=== PATIENT | female | born 1930 | race Caucasian/White ===

== ENCOUNTER 2016-09-13 15:19 | Emergency (ER) | payer OTHER ==
[~2016-09-13] VITALS: Ht 172.7 cm; Wt 89.5 kg
[~2016-09-13 15:19] MED LIST: AMLO-110 PO; ASPCH81 PO; CLTP PO; METO50TA16 PO; WARF5TAB7 PO; WARF5TAB90 PO
[2016-09-13 15:22] VITALS: TEMP 36.3; Ht 172.7 cm; Wt 89.5 kg
[2016-09-13] MEDS ORDERED: ASPI81TA28 PO (15:42)
[2016-09-13] MEDS ORDERED: CALC-354 PO (15:42)
--- NOTE | 2016-09-13 18:11 | DIAGNOSTIC IMAGING REPORT ---
LEFT ELBOW 2 VIEWS CLINICAL HISTORY: Fall with left elbow injury. FINDINGS: AP and crosstable lateral portable views of the left elbow are obtained. No prior studies are available for comparison at the time of dictation. The skeletal structures are osteopenic. There is a supracondylar humeral fracture. There is ulnar distraction of the distal fragment by at least 8 mm, and posterior distraction of the distal fragment by at least 4 mm. No intra-articular extension is seen. The proximal radius and ulna appear intact. An elbow joint effusion is noted. A large enthesophyte is seen in the triceps insertion. Degenerative spurring is present along the medial joint space, and there are medial epicondylar enthesophytes. Overlying soft tissue edema is observed. IMPRESSION: 1. There is a mildly distracted supracondylar humeral fracture as detailed above. 2. The proximal radius and ulna appear intact. 3. Joint effusion and soft tissue swelling. Electronically signed by: Augustine Curiel M.D. 09/13/2016 6:10 PM Dictated Date/Time: 09/13/2016 6:07 PM
--- NOTE | 2016-09-13 18:11 | DIAGNOSTIC IMAGING REPORT ---
CT SCAN OF THE CERVICAL SPINE CLINICAL HISTORY: Trauma. Fall. COMPARISON STUDY: MRI of the cervical spine dated 06/18/2014. TECHNIQUE: CT scan of the cervical spine is performed from the skull base to the upper thoracic spine. Images are reviewed in the axial, sagittal, and coronal planes. IV contrast was not administered for this examination. CT DOSE: Reported separately and the concurrently performed CT scan of the brain. FINDINGS: Skeletal structures: The skeletal structures are osteopenic. There is no evidence of fracture or subluxation involving the cervical spine. Vertebral body height is maintained. There is minimal anterolisthesis at C3-C4, C4-C5, C5-C6, C6-C7, and C7-T1. Anterior osteophytes are noted throughout. There is straightening of the cervical lordosis with mild reversal centered at C4-C5. The odontoid process and lateral masses are intact. The atlantoaxial articulation is preserved noting productive degenerative change. There is mild widening of the interval. The spinous processes appear intact. There is moderate to advanced multilevel cervical spondylosis. Uncovertebral and facet arthropathy contribute to neural foraminal stenosis at most levels. Intervertebral discs: There is moderate degenerative disc space narrowing at C6-C7 and C7-T1. Mild disc space narrowing is seen at the remaining cervical levels. Central canal: Pannus formation is again suggested around the atlantodental joint. This likely narrows the central canal just below the foramen magnum, and was better characterized by MRI in 2013. Posterior disc osteophyte complexes at C3-C4, C4-C5, C5-C6, and C6-C7 likely contribute to mild acquired compromise of the central canal. Soft tissues: The prevertebral and paraspinous soft tissues are within normal limits. Calvarium: The visualized calvarium at the skull base appears intact. Brain parenchyma: Partially visualized brain parenchyma the skull base is within normal limits. Sinuses and mastoids: Trace mucosal thickening is seen within the maxillary antra. The mastoid air cells are well pneumatized. Lung apices: There is biapical scarring. Partially imaged apical lung parenchyma is otherwise grossly clear. IMPRESSION: 1. There is no evidence of fracture or subluxation involving the cervical spine. 2. Osteopenia and multilevel spondylotic change as above. Electronically signed by: Augustine Curiel M.D. 09/13/2016 5:34 PM Dictated Date/Time: 09/13/2016 5:28 PM
--- NOTE | 2016-09-13 18:11 | DIAGNOSTIC IMAGING REPORT ---
CT SCAN OF THE BRAIN WITHOUT IV CONTRAST CLINICAL HISTORY: Fall. Head injury. COMPARISON STUDY: CT of the brain dated 05/10/2014. TECHNIQUE: Unenhanced axial CT scan of the brain is performed from the vertex to the skull base. CT DOSE: 1081.31 mGy.cm FINDINGS: Brain parenchyma: There are age-related involutional changes noting mild subcortical and periventricular microangiopathic change. There is unchanged appearance of an approximately 5 x 3 cm CSF density lesion along the right convexity and in the left anterior temporal fossa as compared to 2014. This causes mass effect on the subjacent cortical sulci. There is minimal right to left midline shift, and the appearance is typical for an arachnoid cyst. There is no hemorrhage or evidence of acute territorial ischemia by CT criteria. Kaufman-white matter is preserved. No extra-axial fluid collection is seen. Ventricles, sulci, cisterns: Prominent secondary to involutional change. Intracranial vasculature: There is atherosclerotic calcification of the cavernous carotid and vertebral arteries. Calvarium: The skeletal structures are osteopenic. No depressed calvarial fracture is seen. Sinuses and mastoids: There is trace mucosal thickening in the right maxillary antrum. The remaining visualized paranasal sinuses are clear. The mastoid air cells are well pneumatized. Orbits: The bony orbits are grossly intact. There are bilateral ocular lens implants. IMPRESSION: 1. There is no hemorrhage or evidence of acute territorial ischemia by CT criteria. 2. Again seen is an arachnoid cyst along the left convexity. This causes mild localized mass effect, and this has not significantly changed from the 2014 examination. Electronically signed by: Augustine Curiel M.D. 09/13/2016 5:27 PM Dictated Date/Time: 09/13/2016 5:22 PM
[2016-09-13 18:16] LABS: BASO % 0.2 %; BASO ABS # 0.02 K/uL (0-0.2); COMPLETE YES; EOS % 0.7 %; HEMATOCRIT 41.2 % (37-47); IG% 0.4 %; LYMPH ABS # 0.86 K/uL (1.2-3.4); MEAN CELL VOLUME 90.9 fL (80-100); MEAN CORPUSCULAR HEMOGLOBIN 28.7 pg (25-34); MEAN CORPUSCULAR HGB CONC 31.6 g/dl (32-36); MEAN PLATELET VOLUME 11.7 fL (7.4-10.4); MONO % 6.4 %; NEUT % 84.3 %; PLATELET COUNT 125 K/uL (130-400); RED BLOOD COUNT 4.53 M/uL (4.2-5.4); WHITE BLOOD COUNT 10.72 K/uL (4.8-10.8)
[2016-09-13 18:22] LABS: INR 2.2 (0.9-1.1); PARTIAL THROMBOPLASTIN RATIO 1.3; PROTHROMBIN TIME (PATIENT) 23.9 SECONDS (9.0-12.0)
--- NOTE | 2016-09-13 18:39 | EMERGENCY ROOM VISIT NOTE ---
History Report prepared by Ashok: Alla Gutiérrez Under the Supervision of: Dr. Georgie Lewis D.O. 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 The patient was walking indoors with a plate of food in her hand when she fell. She does not believe that she tripped on anything, but is unsure why she fell. A family member mentions that she was wearing rubber shoes which might have caught on the carpet. The cut on her face is from her glasses. She denies any head, neck, abdominal, hip, knee, right elbow, or shoulder pain. She did not experience any loss of consciousness. She is able to ambulate. She is on Coumadin for A fib. 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 Review of Systems See HPI for pertinent positives & negatives. A total of 10 systems reviewed and were otherwise negative. Past Medical & Surgical Medical Problems: (1) Atrial fibrillation (2) Heart disease (3) Warfarin anticoagulation Family History Hypertension Social History Smoking Status: Never Smoker Alcohol Use: none Drug Use: none Marital Status: Housing Status: lives with significant other Occupation Status: employed Current/Historical Medications Scheduled Amlodipine (Norvasc), 5 MG PO DAILY Aspirin (Aspirin Ec), 81 MG PO DAILY Calcium Carbonate-Cholecalcife (Caltrate 600+D), 1 TAB PO BID Metoprolol Tartrate (Lopressor) (Lopressor), 50 MG PO BID Warfarin Sod (Jantoven), 5 MG PO WK Warfarin Sodium (Coumadin), 2.5 MG PO [id number] Allergies Coded Allergies: Propoxyphene (Verified Allergy, Unknown, 10/05/15) Indomethacin (Unverified Adverse Reaction, Unknown, GASTRIC UPSET, 10/05/15) Rofecoxib (Unverified Adverse Reaction, Unknown, DRY MOUTH, 10/05/15) Physical Exam Vital Signs Date Time Temp Pulse Resp B/P Pulse Ox O2 Delivery O2 Flow Rate FiO2 09/13/16 18:14 81 18 145/95 93 Room Air 09/13/16 16:59 76 09/13/16 15:22 36.3 91 18 163/100 94 Room Air Physical Exam HEENT: Head - normocephalic and atraumatic. Pupils are equal, round, and reactive to light. Extraocular eye muscles are intact and sclera are anicteric. Ears - bilaterally patent canals with no evidence of hemotympanum. Nose - moist nasal mucosa without evidence of trauma or discharge. Mouth - moist buccal mucosa with no trauma to the teeth or signs of malocclusion. Face - superficial abrasion of left lateral eyebrow. Neck: The neck is supple and there is no pain to palpation over the posterior cervical spine and no obvious step-offs or deformities. There is no JVD or tracheal deviation. Chest: There are no signs of deformities, contusions or abrasions to the chest wall. There is no obvious crepitus or paradoxical chest rise. Heart: Regular, rate, and rhythm. There is a normal S1 and S2 with no murmurs, clicks, or gallops appreciated. Lungs: Clear to auscultation bilaterally with no wheezes, rales, or rhonchi. Abdomen: Soft, completely nontender, nondistended, with good bowel sounds. There is no sign of trauma such as contusions, abrasions or penetrations. There are no palpable pulsatile masses or hepatosplenomegaly. There is no guarding, rigidity, or rebound noted. Pelvis: Stable to rock and compression. Extremities: There are easily palpable peripheral pulses. Deformity and large hematoma of left elbow. The patient has good sensation to the hand and movement of fingers. Neuro: The patient is awake and alert and easily able to follow commands. Muscle strength is 5 out of 5 in all 4 extremities. Otherwise, neuro exam is unremarkable. Back: The entire thoracic, lumbar, and sacral spine were palpated. There are no obvious step-offs or deformities noted. There are no obvious signs of trauma such as contusions abrasions penetrations noted to the back. Medical Decision & Procedures ER Provider Diagnostic Interpretation: X-ray results as stated below per interpretation by me and the radiologist. Radiology results as stated below per my review and the radiologist's interpretation. LEFT ELBOW 2 VIEWS CLINICAL HISTORY: Fall with left elbow injury. FINDINGS: AP and crosstable lateral portable views of the left elbow are obtained. No prior studies are available for comparison at the time of dictation. The skeletal structures are osteopenic. There is a supracondylar humeral fracture. There is ulnar distraction of the distal fragment by at least 8 mm, and posterior distraction of the distal fragment by at least 4 mm. No intra-articular extension is seen. The proximal radius and ulna appear intact. An elbow joint effusion is noted. A large enthesophyte is seen in the triceps insertion. Degenerative spurring is present along the medial joint space, and there are medial epicondylar enthesophytes. Overlying soft tissue edema is observed. IMPRESSION: 1. There is a mildly distracted supracondylar humeral fracture as detailed above. 2. The proximal radius and ulna appear intact. 3. Joint effusion and soft tissue swelling. Electronically signed by: Augustine Curiel M.D. 09/13/2016 6:10 PM Dictated Date/Time: 09/13/2016 6:[address] SCAN OF THE CERVICAL SPINE CLINICAL HISTORY: Trauma. Fall. COMPARISON STUDY: MRI of the cervical spine dated 06/18/2014. TECHNIQUE: CT scan of the cervical spine is performed from the skull base to the upper thoracic spine. Images are reviewed in the axial, sagittal, and coronal planes. IV contrast was not administered for this examination. CT DOSE: Reported separately and the concurrently performed CT scan of the brain. FINDINGS: Skeletal structures: The skeletal structures are osteopenic. There is no evidence of fracture or subluxation involving the cervical spine. Vertebral body height is maintained. There is minimal anterolisthesis at C3-C4, C4-C5, C5-C6, C6-C7, and C7-T1. Anterior osteophytes are noted throughout. There is straightening of the cervical lordosis with mild reversal centered at C4-C5. The odontoid process and lateral masses are intact. The atlantoaxial articulation is preserved noting productive degenerative change. There is mild widening of the interval. The spinous processes appear intact. There is moderate to advanced multilevel cervical spondylosis. Uncovertebral and facet arthropathy contribute to neural foraminal stenosis at most levels. Intervertebral discs: There is moderate degenerative disc space narrowing at C6-C7 and C7-T1. Mild disc space narrowing is seen at the remaining cervical levels. Central canal: Pannus formation is again suggested around the atlantodental joint. This likely narrows the central canal just below the foramen magnum, and was better characterized by MRI in 2014. Posterior disc osteophyte complexes at C3-C4, C4-C5, C5-C6, and C6-C7 likely contribute to mild acquired compromise of the central canal. Soft tissues: The prevertebral and paraspinous soft tissues are within normal limits. Calvarium: The visualized calvarium at the skull base appears intact. Brain parenchyma: Partially visualized brain parenchyma the skull base is within normal limits. Sinuses and mastoids: Trace mucosal thickening is seen within the maxillary antra. The mastoid air cells are well pneumatized. Lung apices: There is biapical scarring. Partially imaged apical lung parenchyma is otherwise grossly clear. IMPRESSION: 1. There is no evidence of fracture or subluxation involving the cervical spine. 2. Osteopenia and multilevel spondylotic change as above. Electronically signed by: Augustine Curiel M.D. 09/13/2016 5:34 PM Dictated Date/Time: 09/13/2016 5:[address] SCAN OF THE BRAIN WITHOUT IV CONTRAST CLINICAL HISTORY: Fall. Head injury. COMPARISON STUDY: CT of the brain dated 05/10/2014. TECHNIQUE: Unenhanced axial CT scan of the brain is performed from the vertex to the skull base. CT DOSE: 1081.31 mGy.cm FINDINGS: Brain parenchyma: There are age-related involutional changes noting mild subcortical and periventricular microangiopathic change. There is unchanged appearance of an approximately 5 x 3 cm CSF density lesion along the right convexity and in the left anterior temporal fossa as compared to 2013. This causes mass effect on the subjacent cortical sulci. There is minimal right to left midline shift, and the appearance is typical for an arachnoid cyst. There is no hemorrhage or evidence of acute territorial ischemia by CT criteria. Kaufman-white matter is preserved. No extra-axial fluid collection is seen. Ventricles, sulci, cisterns: Prominent secondary to involutional change. Intracranial vasculature: There is atherosclerotic calcification of the cavernous carotid and vertebral arteries. Calvarium: The skeletal structures are osteopenic. No depressed calvarial fracture is seen. Sinuses and mastoids: There is trace mucosal thickening in the right maxillary antrum. The remaining visualized paranasal sinuses are clear. The mastoid air cells are well pneumatized. Orbits: The bony orbits are grossly intact. There are bilateral ocular lens implants. IMPRESSION: 1. There is no hemorrhage or evidence of acute territorial ischemia by CT criteria. 2. Again seen is an arachnoid cyst along the left convexity. This causes mild localized mass effect, and this has not significantly changed from the 2014 examination. Electronically signed by: Augustine Curiel M.D. 09/13/2016 5:27 PM Dictated Date/Time: 09/13/2016 5:22 PM Laboratory Results 09/13/16 18:02 Red Blood Count 4.53, Mean Corpuscular Volume 90.9, Mean Corpuscular Hemoglobin 28.7, Mean Corpuscular Hemoglobin Concent 31.6, Mean Platelet Volume 11.7, Neutrophils (%) (Auto) 84.3, Lymphocytes (%) (Auto) 8.0, Monocytes (%) (Auto) 6.4, Eosinophils (%) (Auto) 0.7, Basophils (%) (Auto) 0.2, Neutrophils # (Auto) 9.03, Lymphocytes # (Auto) 0.86, Monocytes # (Auto) 0.69, Eosinophils # (Auto) 0.08, Basophils # (Auto) 0.02 Test 09/13/16 16:34 09/13/16 18:02 White Blood Count 10.72 K/uL (4.8-10.8) Red Blood Count 4.53 M/uL (4.2-5.4) Hemoglobin 13.0 g/dL (12.0-16.0) Hematocrit 41.2 % (37-47) Mean Corpuscular Volume 90.9 fL (80-100) Mean Corpuscular Hemoglobin 28.7 pg (25-34) Mean Corpuscular Hemoglobin Concent 31.6 g/dl (32-36) Platelet Count 125 K/uL (130-400) Mean Platelet Volume 11.7 fL (7.4-10.4) Neutrophils (%) (Auto) 84.3 % Lymphocytes (%) (Auto) 8.0 % Monocytes (%) (Auto) 6.4 % Eosinophils (%) (Auto) 0.7 % Basophils (%) (Auto) 0.2 % Neutrophils # (Auto) 9.03 K/uL (1.4-6.5) Lymphocytes # (Auto) 0.86 K/uL (1.2-3.4) Monocytes # (Auto) 0.69 K/uL (0.11-0.59) Eosinophils # (Auto) 0.08 K/uL (0-0.5) Basophils # (Auto) 0.02 K/uL (0-0.2) RDW Standard Deviation 52.5 fL (36.4-46.3) RDW Coefficient of Variation 15.9 % (11.5-14.5) Immature Granulocyte % (Auto) 0.4 % Immature Granulocyte # (Auto) 0.04 K/uL (0.00-0.02) Prothrombin Time 23.9 SECONDS (9.0-12.0) Prothromb Time International Ratio 2.2 (0.9-1.1) Activated Partial Thromboplast Time 32.5 SECONDS (21.0-31.0) Partial Thromboplastin Ratio 1.3 Laboratory results per my review. ECG Indication: other (fall) Rate (beats per minute): 81 Rhythm: atrial fibrillation Findings: LBBB, no acute ischemic change Comparison ECG Date: April 2015 Change: no significant change ED Course 1628: The patient was evaluated in room B8. A complete history and physical examination were performed. Nursing notes and previous electronic medical records were reviewed. IV lock was established and labs were drawn as above. The patient declined wanting any pain medications at this time. She went for CT scan of the brain and cervical spine along with plain films of the left elbow. 1813: I informed the patient and her family about the CT and X-ray results. I informed them we are still waiting on the labs and for Dr. Dowd to call back. 1823: I discussed the patient's case with Dr. Dowd, orthopedic surgeon - [facility]. He suggests to splint and sling the patient and advise her to follow-up in the office. 1826: I reassessed the patient. I rechecked the pulse, motor, and sensation in her hand, which are all intact. I informed her of Dr. Dowd's instructions. The patient's arm was placed in an Orthoglass splint and sling. She refused any medications stronger than Tylenol for her pain. I discussed the results and treatment plan with the patient and her family. They expressed understanding and agreement. She will be discharged home. I rechecked the pulse, motor, and sensation in her hand/wrist, which are all intact. Medical Decision The patient is a 85 year old female who presents to the ED with left elbow pain. Differential diagnosis includes left elbow fracture, humerus fracture, closed head injury, c-spine injury, intracranial trauma. Labs: INR 2.2. Normal WBC count. Stable H & H. the patient suffered a fall today and has a supracondylar fracture of the left humerus. This was splinted and placed in a sling.' The Inr is 2.2 CT of the Brain and C-spine is negative fro trauma. She will follow up tomorrow with Ortho She was encouraged to move slowly to prevent further falls. Consults Time Called: 1804 Consulting Physician: Dr. Dowd, orthopedic surgeon - [facility] Returned Call: [phone] I discussed the patient's case with him. Impression Primary Impression: Closed traumatic displaced supracondylar fracture of humerus Additional Impression: Fall Scribe Attestation The scribe's documentation has been prepared under my direction and personally reviewed by me in its entirety. I confirm that the note above accurately reflects all work, treatment, procedures, and medical decision making performed by me. Departure Information Dispostion Home / Self-Care Referrals Tariq Toussaint M.D. (PCP) Javi Dowd D.O. Forms HOME CARE DOCUMENTATION FORM, IMPORTANT VISIT INFORMATION Patient Instructions Fractures - [facility], [facility] Additional Instructions Rest. Apply ice to the left elbow. Wear splint until follow up at ortho Use sling when up and about Use tylenol for pain Take extra precaution not to fall Problem Qualifiers
[2016-09-13 19:00] VITALS: BP 165/81; PULSE 75; O2SAT 96
== END 2016-09-13 19:03 | disposition home or self-care (01) ==
LOC: C.EDB 15:20
DX: S42.412A Displaced simple supracondylar fracture without intercondylar fracture of left humerus, initial encounter for closed fracture (principal); W19.XXXA Unspecified fall, initial encounter; I48.91 Unspecified atrial fibrillation; Z79.01 Long term (current) use of anticoagulants; Z79.82 Long term (current) use of aspirin; Z82.49 Family history of ischemic heart disease and other diseases of the circulatory system

== ENCOUNTER 2016-10-28 10:31 | Emergency (ER) | payer OTHER ==
[~2016-10-28] VITALS: Ht 172.7 cm; Wt 88.8 kg
[~2016-10-28 10:31] MED LIST changes: -ASPCH81 PO; +ASPI81TA28 PO; +CALC-354 PO; -CLTP PO
[2016-10-28 10:42] VITALS: TEMP 36.8; Ht 172.7 cm; Wt 88.8 kg
[2016-10-28] MEDS ORDERED: SODIUM CHLORIDE 0.9% 1000ML 1,000 ML IV STA (11:38)
[2016-10-28 11:47] LABS: BASO % 0.2 %; BASO ABS # 0.02 K/uL (0-0.2); COMPLETE YES; EOS % 0.5 %; HEMATOCRIT 39.2 % (37-47); IG% 0.1 %; LYMPH % 6.1 %; LYMPH ABS # 0.58 K/uL (1.2-3.4); MEAN CORPUSCULAR HEMOGLOBIN 29.1 pg (25-34); MEAN CORPUSCULAR HGB CONC 31.6 g/dl (32-36); MEAN PLATELET VOLUME 11.6 fL (7.4-10.4); MONO % 10.4 %; NEUT % 82.7 %; PLATELET COUNT 164 K/uL (130-400); RED BLOOD COUNT 4.26 M/uL (4.2-5.4); WHITE BLOOD COUNT 9.52 K/uL (4.8-10.8)
[2016-10-28 12:04] LABS: PARTIAL THROMBOPLASTIN RATIO 1.1
[2016-10-28 12:05] LABS: ALKALINE PHOSPHATASE 90 U/L (45-117); ALT/SGPT 22 U/L (12-78); AST/SGOT 32 U/L (15-37); BLOOD UREA NITROGEN 18 mg/dl (7-18); BUN/CREATININE RATIO 20.2 (10-20); CALCIUM 9.4 mg/dl (8.5-10.1); CARBON DIOXIDE 26 mmol/L (21-32); CHLORIDE 108 mmol/L (98-107); CKMB/CK RATIO 1.8 (0-3.0); CREATININE 0.88 mg/dl (0.60-1.20); GLUCOSE 100 mg/dl (70-99); MAGNESIUM 1.7 mg/dl (1.8-2.4); POTASSIUM 4.5 mmol/L (3.5-5.1); SODIUM 141 mmol/L (136-145)
[2016-10-28 12:06] LABS: PROTHROMBIN TIME (PATIENT) 21.8 SECONDS (9.0-12.0)
--- NOTE | 2016-10-28 12:17 | DIAGNOSTIC IMAGING REPORT ---
CHEST ONE VIEW PORTABLE CLINICAL HISTORY: Altered mental status. Weakness. COMPARISON STUDY: Chest radiograph May 02, 2015. FINDINGS: There is no pneumothorax. There is a possible small left pleural effusion. Moderate cardiomegaly is present. There is pulmonary vascular congestion. There is no consolidation to suggest pneumonia. IMPRESSION: 1. Pulmonary vascular congestion with possible mild pulmonary edema. 2. Stable cardiomegaly. 3. Small left pleural effusion. Electronically signed by: Ancelmo Hawkins M.D. 10/28/2016 12:15 PM Dictated Date/Time: 10/28/2016 12:13 PM
[2016-10-28 12:18] LABS: URINE APPEARANCE CLEAR (CLEAR); URINE BILIRUBIN NEG (NEG); URINE COLOR YELLOW; URINE NITRITE NEG (NEG); URINE PH 6.5 (4.5-7.5); URINE SPECIFIC GRAVITY 1.022 (1.000-1.030); UROBILINOGEN NEG (NEG); ZZURINE CULT IF INDIC CATH NO
--- NOTE | 2016-10-28 12:25 | DIAGNOSTIC IMAGING REPORT ---
LEFT HUMERUS MIN 2 VIEWS ROUTINE CLINICAL HISTORY: Fall left arm pain. History of fracture. COMPARISON: Left elbow radiographs September 13, 2016. FINDINGS: The left elbow is suboptimally assessed on this exam due to difficulty positioning. There is an overlying cast. An impacted displaced distal left humeral fracture is noted. Fracture alignment is likely similar to exam of September 13, 2016. There is no proximal left humeral fracture. IMPRESSION: Impacted displaced distal left humeral fracture which is suboptimally assessed on this exam due to difficulty positioning. No definite change in alignment since exam of September 13, 2016. Minimal callus formation. Electronically signed by: Ancelmo Hawkins M.D. 10/28/2016 12:23 PM Dictated Date/Time: 10/28/2016 12:17 PM
[2016-10-28 12:29] LABS: MANUAL MICROSCOPIC REQUIRED? NO; REVIEW REQ? NO
--- NOTE | 2016-10-28 12:32 | DIAGNOSTIC IMAGING REPORT ---
CT SCAN OF THE BRAIN WITHOUT IV CONTRAST CLINICAL HISTORY: Generalized weakness. Change in mental status. COMPARISON STUDY: CT of the brain dated 09/13/2016 and 05/10/2014. TECHNIQUE: Unenhanced axial CT scan of the brain is performed from the vertex to the skull base. CT DOSE: 614.27 mGy.cm FINDINGS: Brain parenchyma: There are age-related involutional changes noting mild subcortical and periventricular microangiopathic change. There is unchanged appearance of an approximately 5 x 3 cm CSF density lesion along the right convexity and in the left anterior temporal fossa as compared to 2014. This causes mass effect on the subjacent cortical sulci. There is minimal right to left midline shift, and the appearance is typical for an arachnoid cyst. There is no hemorrhage or evidence of acute territorial ischemia by CT criteria. Kaufman-white matter is preserved. No extra-axial fluid collection is seen. Ventricles, sulci, cisterns: Prominent secondary to involutional change. Intracranial vasculature: There is atherosclerotic calcification of the cavernous carotid and vertebral arteries. Calvarium: The skeletal structures are osteopenic. The calvarium appears intact. Sinuses and mastoids: The visualized paranasal sinuses are clear. The mastoid air cells are well pneumatized. Orbits: The bony orbits are grossly intact. There are bilateral ocular lens implants. IMPRESSION: 1. There is no hemorrhage or evidence of acute territorial ischemia by CT criteria. 2. There is unchanged appearance of an arachnoid cyst along the left convexity dating back to 2013. This causes mild localized mass effect. Electronically signed by: Augustine Curiel M.D. 10/28/2016 12:30 PM Dictated Date/Time: 10/28/2016 12:24 PM
--- NOTE | 2016-10-28 13:15 | EMERGENCY ROOM VISIT NOTE ---
History Report prepared by Ashok: Paloma Collazo Under the Supervision of: Dr. Sang Anne D.O. First contact with patient: 11:26 Chief Complaint: FALL Stated Complaint: AMS History of Present Illness The patient is an 86 year old female who presents to the Emergency Room with complaints of a sudden fall that occurred prior to arrival. Per the patient's daughter, she notes that she always checks on the patient each morning. She states that she found that the patient's newspaper was still in the driveway and the patient's door was locked. The patient's daughter notes that she went into the house and states that she found the patient lying on the bathroom floor. She notes that the patient's head was towards the door and noted that the patient had a walker. The patient's daughter notes that the patient does not typically ambulate with a walker and additionally notes that the patient has a broken arm from a previous fall. She notes that the patient has had several falls recently. The patient states she is unsure how she got to the bathroom. She states that she saw a girl in her house today who was going to get her food. The patient states that she heard someone yell her name to come to the bathroom. The patient's daughter denies the patient having any history of dementia. She notes that the patient made several comments of seeing things and hearing things that are note there. The patient states that she takes Coumadin. She reports a normal appetite and normal fluid intake, but cannot note what her last intake was. The patient's daughter notes that the patient has been taking Tylenol. She notes that the patient has taken Tramadol that has been prescribed by her PCP. Source of History: patient, family (daughter) Onset: prior to arrival Position: other (fall) Quality: other (fall) Timing: other (sudden) Note: Associated Symptoms: seeing and hearing things that are not there. Review of Systems See HPI for pertinent positives & negatives. A total of 10 systems reviewed and were otherwise negative. Past Medical & Surgical Medical Problems: (1) Atrial fibrillation (2) Heart disease (3) Warfarin anticoagulation Family History Hypertension Social History Smoking Status: Never Smoker Alcohol Use: none Drug Use: none Marital Status: Housing Status: lives with significant other Occupation Status: employed Current/Historical Medications Scheduled Amlodipine (Norvasc), 5 MG PO DAILY Aspirin (Aspirin Ec), 81 MG PO DAILY Calcium Carbonate-Cholecalcife (Caltrate 600+D), 1 TAB PO BID Metoprolol Tartrate (Lopressor) (Lopressor), 50 MG PO BID Warfarin Sod (Jantoven), 5 MG PO WK Warfarin Sodium (Coumadin), 2.5 MG PO [id number] Allergies Coded Allergies: Propoxyphene (Verified Allergy, Unknown, 10/28/16) Indomethacin (Unverified Adverse Reaction, Unknown, GASTRIC UPSET, 10/28/16 ) Rofecoxib (Unverified Adverse Reaction, Unknown, DRY MOUTH, 10/28/16) Physical Exam Vital Signs Date Time Temp Pulse Resp B/P Pulse Ox O2 Delivery O2 Flow Rate FiO2 10/28/16 12:10 85 18 120/87 93 Room Air 10/28/16 10:42 36.8 99 20 139/85 92 Room Air 10/28/16 10:41 96 Physical Exam CONSTITUTIONAL/VITAL SIGNS: Reviewed / noted above. GENERAL: Non-toxic in appearance. INTEGUMENTARY: Tiny skin tear to the right lateral elbow, older ecchymosis area around right nipple area. HEAD: Abrasion to the right face. EYES: without scleral icterus or trauma. ENT/OROPHARYNX: clear and moist. LYMPHADENOPATHY/NECK: Is supple without lymphadenopathy or meningismus. RESPIRATORY: Lungs clear and equal. CARDIOVASCULAR: Regular rate and rhythm. GI/ABDOMEN: Soft and nontender. No organomegaly or pulsatile mass. No rebound or guarding. Normal bowel sounds. EXTREMITIES: Warm and well perfused. BACK: No CVA tenderness. NEUROLOGICAL: Intact without focal deficits. PSYCHIATRIC: normal affect. MUSCULOSKELETAL: Normally developed with good muscle tone. Medical Decision & Procedures ER Provider Diagnostic Interpretation: Radiology results as stated below per my review and radiologist interpretation: LEFT HUMERUS MIN 2 VIEWS ROUTINE CLINICAL HISTORY: Fall left arm pain. History of fracture. COMPARISON: Left elbow radiographs September 13, 2016. FINDINGS: The left elbow is suboptimally assessed on this exam due to difficulty positioning. There is an overlying cast. An impacted displaced distal left humeral fracture is noted. Fracture alignment is likely similar to exam of September 13, 2016. There is no proximal left humeral fracture. IMPRESSION: Impacted displaced distal left humeral fracture which is suboptimally assessed on this exam due to difficulty positioning. No definite change in alignment since exam of September 13, 2016. Minimal callus formation. Electronically signed by: Ancelmo Hawkins M.D. 10/28/2016 12:23 PM Dictated Date/Time: 10/28/2016 12:[address] SCAN OF THE BRAIN WITHOUT IV CONTRAST CLINICAL HISTORY: Generalized weakness. Change in mental status. COMPARISON STUDY: CT of the brain dated 09/13/2016 and 05/10/2014. TECHNIQUE: Unenhanced axial CT scan of the brain is performed from the vertex to the skull base. CT DOSE: 614.27 mGy.cm FINDINGS: Brain parenchyma: There are age-related involutional changes noting mild subcortical and periventricular microangiopathic change. There is unchanged appearance of an approximately 5 x 3 cm CSF density lesion along the right convexity and in the left anterior temporal fossa as compared to 2014. This causes mass effect on the subjacent cortical sulci. There is minimal right to left midline shift, and the appearance is typical for an arachnoid cyst. There is no hemorrhage or evidence of acute territorial ischemia by CT criteria. Kaufman-white matter is preserved. No extra-axial fluid collection is seen. Ventricles, sulci, cisterns: Prominent secondary to involutional change. Intracranial vasculature: There is atherosclerotic calcification of the cavernous carotid and vertebral arteries. Calvarium: The skeletal structures are osteopenic. The calvarium appears intact. Sinuses and mastoids: The visualized paranasal sinuses are clear. The mastoid air cells are well pneumatized. Orbits: The bony orbits are grossly intact. There are bilateral ocular lens implants. IMPRESSION: 1. There is no hemorrhage or evidence of acute territorial ischemia by CT criteria. 2. There is unchanged appearance of an arachnoid cyst along the left convexity dating back to 2013. This causes mild localized mass effect. Electronically signed by: Augustine Curiel M.D. 10/28/2016 12:30 PM Dictated Date/Time: 10/28/2016 12:24 PM CHEST ONE VIEW PORTABLE CLINICAL HISTORY: Altered mental status. Weakness. COMPARISON STUDY: Chest radiograph May 02, 2015. FINDINGS: There is no pneumothorax. There is a possible small left pleural effusion. Moderate cardiomegaly is present. There is pulmonary vascular congestion. There is no consolidation to suggest pneumonia. IMPRESSION: 1. Pulmonary vascular congestion with possible mild pulmonary edema. 2. Stable cardiomegaly. 3. Small left pleural effusion. Electronically signed by: Ancelmo Hawkins M.D. 10/28/2016 12:15 PM Dictated Date/Time: 10/28/2016 12:13 PM Laboratory Results 10/28/16 11:15 Red Blood Count 4.26, Mean Corpuscular Volume 92.0, Mean Corpuscular Hemoglobin 29.1, Mean Corpuscular Hemoglobin Concent 31.6, Mean Platelet Volume 11.6, Neutrophils (%) (Auto) 82.7, Lymphocytes (%) (Auto) 6.1, Monocytes (%) (Auto) 10.4, Eosinophils (%) (Auto) 0.5, Basophils (%) (Auto) 0.2, Neutrophils # (Auto ) 7.87, Lymphocytes # (Auto) 0.58, Monocytes # (Auto) 0.99, Eosinophils # (Auto ) 0.05, Basophils # (Auto) 0.02 10/28/16 11:15 Test 10/28/16 11:15 10/28/16 12:00 White Blood Count 9.52 K/uL (4.8-10.8) Red Blood Count 4.26 M/uL (4.2-5.4) Hemoglobin 12.4 g/dL (12.0-16.0) Hematocrit 39.2 % (37-47) Mean Corpuscular Volume 92.0 fL (80-100) Mean Corpuscular Hemoglobin 29.1 pg (25-34) Mean Corpuscular Hemoglobin Concent 31.6 g/dl (32-36) Platelet Count 164 K/uL (130-400) Mean Platelet Volume 11.6 fL (7.4-10.4) Neutrophils (%) (Auto) 82.7 % Lymphocytes (%) (Auto) 6.1 % Monocytes (%) (Auto) 10.4 % Eosinophils (%) (Auto) 0.5 % Basophils (%) (Auto) 0.2 % Neutrophils # (Auto) 7.87 K/uL (1.4-6.5) Lymphocytes # (Auto) 0.58 K/uL (1.2-3.4) Monocytes # (Auto) 0.99 K/uL (0.11-0.59) Eosinophils # (Auto) 0.05 K/uL (0-0.5) Basophils # (Auto) 0.02 K/uL (0-0.2) RDW Standard Deviation 54.0 fL (36.4-46.3) RDW Coefficient of Variation 16.2 % (11.5-14.5) Immature Granulocyte % (Auto) 0.1 % Immature Granulocyte # (Auto) 0.01 K/uL (0.00-0.02) Prothrombin Time 21.8 SECONDS (9.0-12.0) Prothromb Time International Ratio 2.0 (0.9-1.1) Activated Partial Thromboplast Time 28.6 SECONDS (21.0-31.0) Partial Thromboplastin Ratio 1.1 Anion Gap 7.0 mmol/L (3-11) Est Creatinine Clear Calc Drug Dose 51.5 ml/min Estimated GFR () 68.0 Estimated GFR (Non- 58.7 BUN/Creatinine Ratio 20.2 (10-20) Calcium Level 9.4 mg/dl (8.5-10.1) Magnesium Level 1.7 mg/dl (1.8-2.4) Total Bilirubin 1.5 mg/dl (0.2-1) Direct Bilirubin mg/dl (0-0.2) Aspartate Amino Transf (AST/SGOT) 32 U/L (15-37) Alanine Aminotransferase (ALT/SGPT) 22 U/L (12-78) Alkaline Phosphatase 90 U/L (45-117) Total Creatine Kinase 316 U/L (26-192) Creatine Kinase MB 5.7 ng/ml (0.5-3.6) Creatine Kinase MB Ratio 1.8 (0-3.0) Troponin I < 0.015 ng/ml (0-0.045) Total Protein 6.9 gm/dl (6.4-8.2) Albumin 3.6 gm/dl (3.4-5.0) Lipase 125 U/L (73-393) Chemistry Specimen Hemolysis Urine Color YELLOW Urine Appearance CLEAR (CLEAR) Urine pH 6.5 (4.5-7.5) Urine Specific [place] 1.022 (1.000-1.030) Urine Protein NEG (NEG) Urine Glucose (UA) NEG (NEG) Urine Ketones 1+ (NEG) Urine Occult Blood TRACE (NEG) Urine Nitrite NEG (NEG) Urine Bilirubin NEG (NEG) Urine Urobilinogen NEG (NEG) Urine Leukocyte Esterase NEG (NEG) Urine WBC (Auto) 1-5 /hpf (0-5) Urine RBC (Auto) 5-10 /hpf (0-4) Urine Hyaline Casts (Auto) 1-5 /lpf (0-5) Urine Epithelial Cells (Auto) 5-10 /lpf (0-5) Urine Bacteria (Auto) NEG (NEG) Laboratory results as stated above per my review. Medications Administered Medications (Trade) Dose Ordered Sig/Michael Route Start Time Stop Time Status Last Admin Dose Admin Sodium Chloride (Nss 1000ml) 1,000 ml @ 350 mls/hr Q2H52M STAT IV 10/28/16 11:38 10/28/16 14:29 10/28/16 11:59 350 MLS/HR ECG Indication: altered mental status, other (fall) Rhythm: atrial fibrillation Findings: LBBB, no acute ischemic change, no ectopy ED Course 1127: Previous medical records were reviewed. The patient was evaluated in room C9. A complete history and physical examination was performed. 1138: Ordered Sodium Chloride 1000 ml @ 350 mls/hr IV. 1303: I reevaluated the patient and she is resting comfortably. I discussed the exam findings with her and her family and I discussed the treatment plan. They verbalized complete understanding and agreement. The patient is ready to go home. Medical Decision Differential includes acute coronary syndrome, myocardial infarction, CVA, TIA, anemia, infection, pneumonia, UTI, pyelonephritis, poor nutrition, dehydration, electrolyte disturbance,hypoglycemia. This is an 86-year-old female who presents to the ED with a chief complaint of a fall. The daughter found the patient on the floor in the bathroom today. She seemed to be a little confused. She has been using some tramadol. This is for some left arm pain related to a fracture from 6 weeks ago. She has had some auditory hallucinations over the past few days. She is to have her cast removed tomorrow. The patient has no other specific complaints. The patient's exam is noted above. She has a cast on her left arm. Her exam did not reveal any significant findings. CT scan of the brain did not show acute process. Chest x-ray reveals no acute disease. Humerus x-ray of the left arm did not show any change from previous x-ray. CBC is normal. Complete metabolic panel was unremarkable. Troponin is negative. Urine did not show infection. There was 1+ ketones. INR is 2.0. EKG shows chronic A. fib. The patient was treated with IV fluids. She was told results the test. She is felt to be stable for discharge. I did recommend that she just use Tylenol or Motrin for discomfort. Impression Primary Impression: Fall Additional Impression: Dehydration Scribe Attestation The scribe's documentation has been prepared under my direction and personally reviewed by me in its entirety. I confirm that the note above accurately reflects all work, treatment, procedures, and medical decision making performed by me. Departure Information Dispostion Home / Self-Care Referrals Tariq Toussaint M.D. (PCP) Patient Instructions ED Mechanical Fall, [facility] Additional Instructions Avoid tramadol. Use Tylenol or Motrin as needed for pain. Follow-up with your doctor for further care and evaluation in 1-2 days. Return to the emergency department for worsening or new symptoms or any concerns. You have been examined and treated today on an emergency basis only. This is not a substitute for, or an effort to provide, complete comprehensive medical care. It is impossible to recognize and treat all injuries or illnesses in a single emergency department visit. It is therefore important that you follow up closely with your doctor. Call as soon as possible for an appointment. Problem Qualifiers
[2016-10-28 13:36] VITALS: BP 143/65; PULSE 88; O2SAT 96
== END 2016-10-28 13:37 | disposition home or self-care (01) ==
LOC: EDBD 10:31 → C.EDC 10:32
DX: E86.0 Dehydration (principal); W19.XXXA Unspecified fall, initial encounter; I48.2 Chronic atrial fibrillation; R44.0 Auditory hallucinations; Z91.81 History of falling; Z87.81 Personal history of (healed) traumatic fracture; Z82.49 Family history of ischemic heart disease and other diseases of the circulatory system; Z79.01 Long term (current) use of anticoagulants; Z79.82 Long term (current) use of aspirin

== ENCOUNTER 2017-01-09 12:02 | Emergency (ER) | payer OTHER ==
[~2017-01-09] VITALS: Ht 172.7 cm; Wt 89.0 kg
[2017-01-09 12:05] VITALS: TEMP 36.4; Ht 172.7 cm; Wt 89.0 kg
[2017-01-09] MEDS ORDERED: LIDOCAINE/EPINEPH/TETRACAINE 1 EA SYR EXT STA (12:20)
--- NOTE | 2017-01-09 12:23 | EMERGENCY ROOM VISIT NOTE ---
History Report prepared by Ashok: Glo Levi Under the Supervision of: Dr. Adan Maynard D.O. First contact with patient: 12:14 Chief Complaint: FALL Stated Complaint: FELL, HIT HEAD History of Present Illness The patient is a 86 year old female who presents to the Emergency Room with complaints of an episode of a fall beginning just [employer]. The patient states that she was getting her mail and tripped and fell onto the concrete. She reports that she hit the back of her head. She notes that she has a history of falling and last fell in September and broke her elbow. The patient states that she is on Coumadin for atrial fibrillation. She notes that she was seen at [facility] and they wanted her to be seen in the ED. She complains of a cut on her leg. She notes that she has no difficulty waling. She denies any neck pain, headache, back pain, and loss of consciousness. The patient states that she follows with Dr. Terrell for her elbow fracture that is not healing. 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 Review of Systems See HPI for pertinent positives & negatives. A total of 10 systems reviewed and were otherwise negative. Past Medical & Surgical Medical Problems: (1) Atrial fibrillation (2) Heart disease (3) Warfarin anticoagulation Family History Hypertension Social History Smoking Status: Never Smoker Alcohol Use: none Drug Use: none Marital Status: Housing Status: lives with significant other Occupation Status: employed Current/Historical Medications Scheduled Amlodipine (Norvasc), 5 MG PO DAILY Aspirin (Aspirin Ec), 81 MG PO DAILY Calcium Carbonate-Cholecalcife (Caltrate 600+D), 1 TAB PO BID Metoprolol Tartrate (Lopressor) (Lopressor), 50 MG PO BID Warfarin Sodium (Coumadin), 2.5 MG PO QPM Allergies Coded Allergies: Propoxyphene (Verified Allergy, Unknown, 10/28/16) Tramadol (Verified Allergy, Unknown, DELIRIUM, 01/09/17) hallucinations Indomethacin (Verified Adverse Reaction, Unknown, GASTRIC UPSET, 01/09/17) Rofecoxib (Verified Adverse Reaction, Unknown, DRY MOUTH, 01/09/17) Physical Exam Vital Signs Date Time Temp Pulse Resp B/P (MAP) Pulse Ox O2 Delivery O2 Flow Rate FiO2 01/09/17 14:01 75 20 153/75 95 01/09/17 12:05 36.4 92 20 144/80 90 Room Air Physical Exam GENERAL: Patient is awake, alert, and in no acute distress. Patient is resting comfortably and showing no signs of anxiety EYES: The conjunctivae are clear. The pupils are round and reactive. EARS, NOSE, MOUTH AND THROAT: The nose is without any evidence of any deformity. Mucous membranes are moist tongue is midline, there was an occipital scalp hematoma, no bleeding appreciated NECK: The neck is nontender and supple. ROM appeared limited but not painful. RESPIRATORY: Normal respiratory effort is noted there is no evidence of wheezing rhonchi or rales CARDIOVASCULAR: Regular rate and rhythm noted there no murmurs rubs or gallops normal S1 normal S2 GASTROINTESTINAL: The abdomen is soft. Bowel sounds are present in all quadrants. Abdomen is nontender BACK: No midline tenderness or or step-off noted range of motion in flexion extension as well as rotation no signs of muscle spasm noted MUSCULOSKELETAL/EXTREMITIES: There is no evidence of gross deformity full range of motion is noted in the hips and shoulders SKIN: There is no obvious evidence of any rash. There are no petechiae, pallor or cyanosis noted. Pedal edema bilaterally, skin tare over lateral left ankle, no active bleeding appreciated. NEUROLOGIC: Patient is awake alert and oriented x3 Medical Decision & Procedures ER Provider Diagnostic Interpretation: CT results as stated below per my review and radiologist interpretation. CT HEAD WITHOUT CONTRAST (CT) FINDINGS: There is a stable CSF density structure within the left middle cranial fossa extending the left sylvian fissure region. This likely represents an arachnoid cyst. There is asymmetric CSF in the left posterior fossa, also unchanged from the prior study. There is no CT evidence of acute cortical infarction. There is no acute hemorrhage. No fractures are visualized. There are patchy white matter hypodensities likely on a small vessel basis. There is no evidence of pathologic ventricular dilatation. There is no evidence of acute sinusitis IMPRESSION: 1. No significant change from the prior study. No acute findings. No acute hemorrhage 2. Stable left-sided arachnoid cyst Electronically signed by: Robert Johnson M.D. 01/09/2017 1:02 PM Dictated Date/Time: 01/09/2017 12:[address] OF THE CERVICAL SPINE FINDINGS: The visualized portions of the lung apices reveal no evidence of pneumothorax. The prevertebral soft tissues are normal. No acute fractures or traumatic subluxations are visualized. Minimal anterolisthesis of C4 on C5, C5 on C6, and C7 on T1 are felt to be degenerative. There is reversal of the normal cervical lordosis. IMPRESSION: Moderately advanced multilevel degenerative change. No acute fractures or traumatic subluxations are visualized. Electronically signed by: Robert Johnson M.D. 01/09/2017 1:05 PM Dictated Date/Time: 01/09/2017 1:02 PM Medications Administered Medications (Trade) Dose Ordered Sig/Michael Route Start Time Stop Time Status Last Admin Dose Admin Tetracaine/ Epinephrine/ Lidocaine (L.e.t. Gel 4%/ 1:100/0.5%) 1 ea UD STAT EXT 01/09/17 12:20 01/09/17 12:21 DC 01/09/17 12:33 1 EA Acetaminophen (Tylenol Tab) 1,000 mg NOW STAT PO 01/09/17 13:07 01/09/17 13:08 DC 01/09/17 13:15 1,000 MG ED Course 1214: The patient was evaluated in room B2. A complete history and physical examination were performed. 1220: L.e.t. Gel 4%/1:100/0.5% 1 ea EXT. 1307: Tylenol Tab 1000mg PO. 1345: Upon reevaluation, the patient is doing well. I discussed the results and treatment plan with the patient. She verbalized agreement of the treatment plan. The patient was discharged home. Medical Decision Differential diagnosis: Etiologies such as fracture, dislocation, intra-abdominal, pneumothorax, intrathoracic , intracranial, neurologic, as well as other traumatic pathologies were entertained. Medication Reconciliation: I attest that I have personally reviewed the patient' s current medications list. Patient was found to have a slightly elevated blood pressure due to circumstances. I do not believe that the patient requires hypertension monitoring. The patient is an 86-year-old female who presented to the emergency department for an evaluation after a fall. The patient fell backwards striking the back of her head. She suffered a contusion and hematoma to her occipital scalp. The patient initially went to [facility] to be seen but she was sent to the emergency department for further evaluation because she currently takes Coumadin. The patient does not have a headache at this time but CTs were ordered to ensure there is no intracranial abnormality after the fall. The patient was treated with Tylenol in the emergency department. She also had a skin tear on her left leg that was treated. I discussed the patient's review graphic studies with her. She was encouraged to rest and avoid any strenuous activity. She was also encouraged to follow-up with her family doctor for further evaluation or return to the emergency department immediately for any signs of head injury. Impression Primary Impression: Fall Additional Impressions: Head injury Scalp hematoma Cervical strain Scribe Attestation The scribe's documentation has been prepared under my direction and personally reviewed by me in its entirety. I confirm that the note above accurately reflects all work, treatment, procedures, and medical decision making performed by me. Departure Information Dispostion Home / Self-Care Referrals Tariq Toussaint M.D. (PCP) Forms HOME CARE DOCUMENTATION FORM, IMPORTANT VISIT INFORMATION Patient Instructions ED Head Injury Closed, [facility] Additional Instructions Call your family [facility] to schedule a follow-up appointment. Continue using Tylenol as directed for pain. Return to the emergency department immediately if symptoms change worsen or the need arises. Problem Qualifiers Primary Impression: Fall Encounter type: initial encounter Qualified Codes: W19.XXXA - Unspecified fall, initial encounter Additional Impressions: Head injury Encounter type: initial encounter Qualified Codes: S09.90XA - Unspecified injury of head, initial encounter Scalp hematoma Encounter type: initial encounter Qualified Codes: S00.03XA - Contusion of scalp, initial encounter Cervical strain Encounter type: initial encounter Qualified Codes: S16.1XXA - Strain of muscle, fascia and tendon at neck level, initial encounter
--- NOTE | 2017-01-09 13:03 | DIAGNOSTIC IMAGING REPORT ---
CT HEAD WITHOUT CONTRAST (CT) CLINICAL HISTORY: Head pain. Head trauma. Patient on Coumadin. COMPARISON STUDY: 10/28/2016 TECHNIQUE: Axial CT of the brain is performed from the vertex to the skull base. IV contrast was not administered for this examination. CT DOSE: FINDINGS: There is a stable CSF density structure within the left middle cranial fossa extending the left sylvian fissure region. This likely represents an arachnoid cyst. There is asymmetric CSF in the left posterior fossa, also unchanged from the prior study. There is no CT evidence of acute cortical infarction. There is no acute hemorrhage. No fractures are visualized. There are patchy white matter hypodensities likely on a small vessel basis. There is no evidence of pathologic ventricular dilatation. There is no evidence of acute sinusitis IMPRESSION: 1. No significant change from the prior study. No acute findings. No acute hemorrhage 2. Stable left-sided arachnoid cyst Electronically signed by: Robert Johnson M.D. 01/09/2017 1:02 PM Dictated Date/Time: 01/09/2017 12:58 PM
[2017-01-09] MEDS ORDERED: ACETAMINOPHEN 500 MG TAB PO STA (13:07)
--- NOTE | 2017-01-09 13:07 | DIAGNOSTIC IMAGING REPORT ---
CT OF THE CERVICAL SPINE CLINICAL HISTORY: Neck pain status post trauma COMPARISON STUDY: 09/13/2016 CT DOSE: 1082.19 mGy.cm TECHNIQUE: CT scan of the cervical spine was performed from the skull base to the thoracic inlet. Images are reviewed in the axial, sagittal, and coronal planes. IV contrast was not administered for this examination. FINDINGS: The visualized portions of the lung apices reveal no evidence of pneumothorax. The prevertebral soft tissues are normal. No acute fractures or traumatic subluxations are visualized. Minimal anterolisthesis of C4 on C5, C5 on C6, and C7 on T1 are felt to be degenerative. There is reversal of the normal cervical lordosis. IMPRESSION: Moderately advanced multilevel degenerative change. No acute fractures or traumatic subluxations are visualized. Electronically signed by: Robert Johnson M.D. 01/09/2017 1:05 PM Dictated Date/Time: 01/09/2017 1:02 PM
[2017-01-09 14:01] VITALS: BP 153/75; PULSE 75; O2SAT 95
== END 2017-01-09 14:03 | disposition home or self-care (01) ==
LOC: C.EDB 12:03
DX: S00.03XA Contusion of scalp, initial encounter (principal); S16.1XXA Strain of muscle, fascia and tendon at neck level, initial encounter; I48.91 Unspecified atrial fibrillation; Z79.01 Long term (current) use of anticoagulants; Z79.82 Long term (current) use of aspirin; Z79.899 Other long term (current) drug therapy; W01.0XXA Fall on same level from slipping, tripping and stumbling without subsequent striking against object, initial encounter; Z91.81 History of falling; Z82.49 Family history of ischemic heart disease and other diseases of the circulatory system

== ENCOUNTER 2017-07-23 22:34 | Inpatient (IN) | payer OTHER ==
[~2017-07-23] VITALS: Ht 172.7 cm; Wt 81.2 kg
[~2017-07-23 22:34] MED LIST changes: -WARF5TAB7 PO
[2017-07-23] MEDS ORDERED: ALBUT/IPRATROP 3MG/0.5MG NEB 3 ML VIAL INH STA (22:46)
[2017-07-23] MEDS ORDERED: PRLSR20 PO (22:59)
[2017-07-23] MEDS ORDERED: ESCI10TA17 PO (22:59)
[2017-07-23 23:19] LABS: BASO % 0.1 %; BASO ABS # 0.01 K/uL (0-0.2); HEMATOCRIT 34.9 % (37-47); HEMOGLOBIN 10.5 g/dL (12.0-16.0); IG# 0.02 K/uL (0.00-0.02); LYMPH % 5.3 %; LYMPH ABS # 0.43 K/uL (1.2-3.4); MEAN CELL VOLUME 86.8 fL (80-100); MEAN CORPUSCULAR HEMOGLOBIN 26.1 pg (25-34); MEAN CORPUSCULAR HGB CONC 30.1 g/dl (32-36); MEAN PLATELET VOLUME 10.2 fL (7.4-10.4); MONO % 10.8 %; MONO ABS # 0.87 K/uL (0.11-0.59); NEUT % 83.6 %; NEUT ABS # 6.72 K/uL (1.4-6.5); PLATELET COUNT 146 K/uL (130-400); RED CELL DISTRIBUTION WIDTH SD 54.5 fL (36.4-46.3); WHITE BLOOD COUNT 8.05 K/uL (4.8-10.8)
[2017-07-24] VITALS (19 sets, daily range): BP systolic 103–126; BP diastolic 57–77; PULSE 67–152; TEMP 36.5–37.6; O2SAT 91–98; Ht 172.7 cm; Wt 81.2 kg
[2017-07-24 00:14] LABS: ALBUMIN 3.4 gm/dl (3.4-5.0); ALKALINE PHOSPHATASE 84 U/L (45-117); ALT/SGPT 22 U/L (12-78); BLOOD UREA NITROGEN 22 mg/dl (7-18); CALCIUM 8.8 mg/dl (8.5-10.1); CARBON DIOXIDE 24 mmol/L (21-32); CKMB 2.4 ng/ml (0.5-3.6); CREATININE 0.93 mg/dl (0.60-1.20); GLUCOSE 158 mg/dl (70-99)
[2017-07-24 00:18] LABS: POTASSIUM 4.2 mmol/L (3.5-5.1); SODIUM 140 mmol/L (136-145)
[2017-07-24] MEDS ORDERED: SODIUM CHLORIDE 0.9% 500ML 500 ML IV STA (00:23)
[2017-07-24] MEDS ORDERED: LEVAQUIN 750MG / 150ML D5W IV STA (00:23)
[2017-07-24] MEDS ORDERED: SODIUM CHLORIDE 0.9% 1000ML 1,000 ML IV STA (00:23)
[2017-07-24 00:24] LABS: INFLUENZA B ANTIGEN Neg for Influ B (NEG)
[2017-07-24 00:27] LABS: AST/SGOT 22 U/L (15-37)
[2017-07-24] MEDS ORDERED: OPTIRAY 320 IV PRN (00:30)
[2017-07-24 01:54] LABS: INR 1.5 (0.9-1.1); PTT PATIENT 30.6 SECONDS (21.0-31.0)
[2017-07-24] MEDS ORDERED: ALBUT/IPRATROP 3MG/0.5MG NEB 3 ML VIAL INH STA (02:12)
--- NOTE | 2017-07-24 02:25 | EMERGENCY ROOM VISIT NOTE ---
History Report prepared by Ashok: Jericho Melgar Under the Supervision of: Dr. Eric Saravia M.D. First contact with patient: 22:36 Stated Complaint: SOB History of Present Illness The patient is an 86 year old female who presents to the Emergency Room with complaints of constant SOB beginning at 1800 this evening. Per nurse, the patient went to her PCP yesterday and was diagnosed with bronchitis. He notes that the patient forgot to take her medication today, prompting her SOB symptoms this evening. He reports that the patient's daughter called EMS. He states that the patient received 1 DuoNeb en route. The patient also complains of diaphoresis, congestion, and a productive yellow cough. She denies any history of pneumonia and heart problems, but notes that her father has had a heart attack. Pt denies LOC, headache, fevers, chills, visual changes, neck pain , chest pain, breathing difficulties, nausea, vomiting, abdominal pain, back pain, melena, hematochezia, urinary symptoms, numbness, weakness, lymphadenopathy, rash, or other complaints. Source of History: patient Onset: 1800 this evening Position: chest Quality: other (SOB) Timing: constant Associated Symptoms: + diaphoresis, + cough (productive yellow) Note: She also complains of congestion. Review of Systems See HPI for pertinent positives and negatives. A total of ten systems were reviewed and were otherwise negative. Past Medical & Surgical Medical Problems: (1) Atrial fibrillation (2) Bronchitis (3) Heart disease (4) Respiratory failure, acute (5) Warfarin anticoagulation Family History FH: heart attack Hypertension Social History Smoking Status: Never Smoker Alcohol Use: none Drug Use: none Marital Status: Housing Status: lives with significant other Occupation Status: employed Current/Historical Medications Scheduled Aspirin (Aspirin Ec), 81 MG PO DAILY Calcium Carbonate-Cholecalcife (Caltrate 600+D), 1 TAB PO BID Escitalopram (Lexapro), 10 MG PO DAILY Metoprolol Tartrate (Lopressor) (Lopressor), 50 MG PO BID Omeprazole (Prilosec), 20 MG PO DAILY Warfarin Sodium (Coumadin), 2.5 MG PO QPM [id number] Allergies Coded Allergies: Propoxyphene (Verified Allergy, Unknown, 07/23/17) Tramadol (Verified Allergy, Unknown, DELIRIUM, 07/23/17) hallucinations Indomethacin (Verified Adverse Reaction, Unknown, GASTRIC UPSET, 07/23/17) Rofecoxib (Verified Adverse Reaction, Unknown, DRY MOUTH, 07/23/17) Physical Exam Vital Signs Date Time Temp Pulse Resp B/P (MAP) Pulse Ox O2 Delivery O2 Flow Rate FiO2 07/24/17 01:00 95 33 158/73 95 3.0 07/24/17 00:31 99 35 150/71 95 Nasal Cannula 07/24/17 00:01 105 36 157/69 94 3.0 07/23/17 23:40 111 16 164/71 94 Nasal Cannula 3.0 07/23/17 23:09 96 Nasal Cannula 07/23/17 23:09 37.1 100 25 170/73 94 Nasal Cannula 07/23/17 23:07 96 Nasal Cannula 07/23/17 23:07 Nasal Cannula 07/23/17 22:46 100 Physical Exam GENERAL: Awake, alert, dyspneic-appearing, in no distress HENT: Normocephalic, atraumatic. Oropharynx unremarkable. EYES: Normal conjunctiva. Sclera non-icteric. NECK: Supple. No nuchal rigidity. FROM. No JVD. RESPIRATORY: Scattered rhonchi bilaterally. CARDIAC: Borderline tachycardic, normal rhythm. Extremities warm and well perfused. Pulses equal. ABDOMEN: Soft, non-distended. No tenderness to palpation. No rebound or guarding. No masses. RECTAL: Deferred. MUSCULOSKELETAL: Chest examination reveals no tenderness. The back is symmetrical on inspection without obvious abnormality. There is no CVA tenderness to palpation. No joint edema. LOWER EXTREMITIES: Calves are equal size bilaterally and non-tender. Trace edema. Chronic venous discoloration. NEURO: Normal sensorium. No sensory or motor deficits noted. SKIN: No rash or jaundice noted. Medical Decision & Procedures ER Provider Diagnostic Interpretation: Radiology results as stated below per my review and interpretation: CHEST X-RAY: Cardiomegaly. Increased interstitial markings in right lower lobe. No pneumothorax. No effusions. Compared to prior, the right lower lobe looks worse. CTA CHEST: No PE. Suggest of pulmonary arterial hypertension. No aortic aneurysm or dissection. Multivessel coronary calcifications. [facility]. No pericardial effusion. Small pleural effusions. Groundglass opacities bilaterally, interlobular interstitial thickening, and multilobar bilateral centrilobular nodules. Overall consider the possibility of congestive heart exacerbation with possible superimposed atypical infection. Probably reactive mediastinal and hilar adenopathy. Laboratory Results 07/23/17 23:00 Red Blood Count 4.02, Mean Corpuscular Volume 86.8, Mean Corpuscular Hemoglobin 26.1, Mean Corpuscular Hemoglobin Concent 30.1, Mean Platelet Volume 10.2, Neutrophils (%) (Auto) 83.6, Lymphocytes (%) (Auto) 5.3, Monocytes (%) (Auto) 10.8, Eosinophils (%) (Auto) 0.0, Basophils (%) (Auto) 0.1, Neutrophils # (Auto ) 6.72, Lymphocytes # (Auto) 0.43, Monocytes # (Auto) 0.87, Eosinophils # (Auto ) 0.00, Basophils # (Auto) 0.01 07/23/17 23:00 Test 07/23/17 23:00 07/23/17 23:25 07/24/17 01:11 07/24/17 02:20 White Blood Count 8.05 K/uL (4.8-10.8) Red Blood Count 4.02 M/uL (4.2-5.4) Hemoglobin 10.5 g/dL (12.0-16.0) Hematocrit 34.9 % (37-47) Mean Corpuscular Volume 86.8 fL (80-100) Mean Corpuscular Hemoglobin 26.1 pg (25-34) Mean Corpuscular Hemoglobin Concent 30.1 g/dl (32-36) Platelet Count 146 K/uL (130-400) Mean Platelet Volume 10.2 fL (7.4-10.4) Neutrophils (%) (Auto) 83.6 % Lymphocytes (%) (Auto) 5.3 % Monocytes (%) (Auto) 10.8 % Eosinophils (%) (Auto) 0.0 % Basophils (%) (Auto) 0.1 % Neutrophils # (Auto) 6.72 K/uL (1.4-6.5) Lymphocytes # (Auto) 0.43 K/uL (1.2-3.4) Monocytes # (Auto) 0.87 K/uL (0.11-0.59) Eosinophils # (Auto) 0.00 K/uL (0-0.5) Basophils # (Auto) 0.01 K/uL (0-0.2) RDW Standard Deviation 54.5 fL (36.4-46.3) RDW Coefficient of Variation 17.0 % (11.5-14.5) Immature Granulocyte % (Auto) 0.2 % Immature Granulocyte # (Auto) 0.02 K/uL (0.00-0.02) Anion Gap 12.0 mmol/L (3-11) Est Creatinine Clear Calc Drug Dose 46.8 ml/min Estimated GFR () 63.6 Estimated GFR (Non- 54.9 BUN/Creatinine Ratio 23.9 (10-20) Calcium Level 8.8 mg/dl (8.5-10.1) Total Bilirubin 0.7 mg/dl (0.2-1) Aspartate Amino Transf (AST/SGOT) 22 U/L (15-37) Alanine Aminotransferase (ALT/SGPT) 22 U/L (12-78) Alkaline Phosphatase 84 U/L (45-117) Total Creatine Kinase 125 U/L (26-192) Creatine Kinase MB 2.4 ng/ml (0.5-3.6) Creatine Kinase MB Ratio 1.9 (0-3.0) Troponin I < 0.015 ng/ml (0-0.045) Pro-B-Type Natriuretic Peptide 2962 pg/ml (0-1800) Total Protein 7.0 gm/dl (6.4-8.2) Albumin 3.4 gm/dl (3.4-5.0) Globulin 3.6 gm/dl (2.5-4.0) Albumin/Globulin Ratio 0.9 (0.9-2) Influenza Type A Antigen Neg for Influ A (NEG) Influenza Type B Antigen Neg for Influ B (NEG) Prothrombin Time 15.4 SECONDS (9.0-12.0) Prothromb Time International Ratio 1.5 (0.9-1.1) Activated Partial Thromboplast Time 30.6 SECONDS (21.0-31.0) Partial Thromboplastin Ratio 1.2 Test 07/24/17 02:25 07/24/17 02:37 Transferrin % Saturation % (15-50) Laboratory results reviewed by me Medications Administered Medications (Trade) Dose Ordered Sig/Michael Route Start Time Stop Time Status Last Admin Dose Admin Albuterol/ Ipratropium (Duoneb) 3 ml NOW STAT INH 07/23/17 22:46 07/23/17 22:48 DC 07/23/17 23:08 3 ML Sodium Chloride 1,000 ml @ 125 mls/hr Q8H STAT IV 07/24/17 00:23 07/24/17 02:14 DC 07/24/17 00:35 125 MLS/HR Sodium Chloride 500 ml @ 999 mls/hr Q31M STAT IV 07/24/17 00:23 07/24/17 00:53 DC 07/24/17 00:35 999 MLS/HR Levofloxacin (Levaquin / D5W) 750 mg NOW STAT IV 07/24/17 00:23 07/24/17 00:24 DC 07/24/17 00:34 750 MG Albuterol/ Ipratropium (Duoneb) 3 ml NOW STAT INH 07/24/17 02:12 07/24/17 02:14 DC 07/24/17 02:18 3 ML Nitroglycerin (Nitrostat Tab) 0.4 mg NOW STAT SL 07/24/17 02:27 07/24/17 02:30 DC 07/24/17 02:40 0.4 MG Furosemide (Lasix Inj) 40 mg NOW STAT IV 07/24/17 02:27 07/24/17 02:30 DC 07/24/17 02:40 40 MG Nitroglycerin (Nitroglycerin 2% Oint) 0.5 inch NOW ONCE EXT 07/24/17 02:30 07/24/17 02:31 DC 07/24/17 02:30 0.5 INCH Nitroglycerin (Nitrostat Tab) 0.4 mg NOW STAT SL 07/24/17 02:40 07/24/17 02:41 DC 07/24/17 02:41 0.4 MG ECG Indication: SOB/dyspnea Rate (beats per minute): 97 Rhythm: atrial fibrillation Findings: LBBB, other (Left axis deviation) Comparison ECG Date: 10/28/2016 Change: Patient's electrocardiogram interpreted by me. LBBB is not new compared to prior. ED Course 2238: The patient was evaluated in room B9. A complete history and physical exam was performed. 2246: DuoNeb 3ml INH 2302: I reevaluated the patient and spoke to the patient's family. 0001: I reevaluated and updated the patient. She is resting comfortably. 0023: Levofloxacin 750mg IV, Sodium Chloride 500 ml @ 999 mls/hr IV 0153: I reevaluated and updated the patient. 0205: Upon reexamination, the patient feeling well but had some mild increased work of breathing. I discussed the test results and treatment plan with her. Discussed the patient's case with Dr. Hathaway - HospitalistRobson. The patient will be evaluated for further management. 0 226: The patient was having increased work of breathing and respiratory distress. Reassessed. BiPAP ordered. 0228: The patient was given nitroglycerin sublingual, Lasix 40 mg IV, and Nitropaste 1/2 inch. 0240: The patient was significantly hypertensive and had respiratory distress. Additional nitroglycerin given. BiPAP initiated. 0248: Third sublingual nitroglycerin given. Order nitroglycerin drip. Patient began feeling better. Blood pressure improving. 0252: I notified Dr. Marshall of the patient's decompensation. 0254: Repeat chest x-ray ordered. His doctor which is Franky tach Medical Decision Prior records/ancillary studies reviewed. Triage Nursing notes reviewed and agree them. Additional history obtained from the family. The patient's history was concerning for shortness of breath. Differential diagnosis: Etiologies such as pneumonia, COPD, reactive airway disease, CHF, cardiac ischemia, pulmonary embolism, pneumothorax, musculoskeletal, infections, gastrointestinal, as well as others were entertained. Physical examination: As above. Patient was requiring supplemental oxygen ER treatment provided: DuoNeb 2 IV Levaquin Saline hydration Supplemental oxygen On reassessment the patient felt better. The patient decompensated. Sublingual nitroglycerin Nitroglycerin ointment Nitroglycerin Drip IV Lasix BiPAP on reassessment the patient was stabilizing and feeling much better. Diagnostic interpretation by me: The electrocardiogram was negative for pathologic change. The labs revealed an unremarkable CBC. Chemistry panel was negative. Cardiac markers negative. The patient's BNP slightly elevated. Imaging studies: Chest x-ray and CT scan as above. The patient presented with a productive cough and shortness of breath. She responded well to supplemental oxygen and a DuoNeb. He was given a second. There was some congestion noted on chest x-ray and she was given IV Levaquin. CT imaging showed reactive lymphadenopathy and congestion which could represent an atypical infection. She does have a productive cough. It is with yellow sputum. CHF is a second possibility given her elevated BNP and appearance on the CT. She will need treatment in the hospital. The patient acutely decompensated. She was very hypertensive and hypoxic. The patient had all fluids stopped. She was given nitroglycerin, Lasix, and BiPAP was initiated. She was given repeat dosings of the nitroglycerin and was doing much better. Consultation: A consultation was placed with the hospitalist. The case was discussed and diagnostics were reviewed. The patient was evaluated in the ER for further treatment. Medication Reconcilliation Current Medication List: was personally reviewed by me Blood Pressure Screening Patient's blood pressure: Elevated blood pressure Elevated blood pressure referred to hospitalist. Consults Time Called: 0147 Consulting Physician: Dr. Hathaway - Robson Soni Returned Call: 0205 Discussed the patient's case. The patient will be evaluated for further treatment and disposition. Impression Primary Impression: Pneumonia Additional Impressions: Hypoxia Congestive heart failure Critical Care I have personally spent greater than 30 minutes of critical care time in the direct management of this patient. This includes bedside care, interpretation of diagnostic studies, and testing, discussion with consultants, patient, and family members, and other required patient management activities. This 30 minutes is in excess of all separately billable procedures. Scribe Attestation The scribe's documentation has been prepared under my direction and personally reviewed by me in its entirety. I confirm that the note above accurately reflects all work, treatment, procedures, and medical decision making performed by me. Departure Information Dispostion Being Evaluated By Hospitalist Referrals Tariq Toussaint M.D. (PCP) Problem Qualifiers
[2017-07-24] MEDS ORDERED: NITROGLYCERIN 0.4 MG SL PER TAB CHARGE SL STA ×3 (02:27→02:48)
[2017-07-24] MEDS ORDERED: FUROSEMIDE 40 MG/4 ML VIAL IV STA (02:27)
[2017-07-24] MEDS ORDERED: NITROGLYCERIN OINT 2% 1GM PACKET EXT ONE (02:30)
[2017-07-24] MEDS ORDERED: METHYLPREDNISOLONE IV 20 MG in SYRINGE 0 ML IV STA (02:31)
[2017-07-24] MEDS ORDERED: FUROSEMIDE INJ 40 MG in SYRINGE 0 ML IV STA (02:32)
[2017-07-24] MEDS ORDERED: NITROGLYCERIN/D5W 100 MCG/ML 500 ML IV STA (02:48)
[2017-07-24 03:16] LABS: INFLUENZA A PCR Neg for Influ A (NEG); INFLUENZA B PCR Neg for Influ B (NEG)
[2017-07-24] MEDS ORDERED: LEVALBUTEROL/IPRATROPIUM NEB INH STA ×2 (03:25)
[2017-07-24] MEDS ORDERED: PROCHLORPERAZINE INJ 5 MG in SYRINGE 4 ML IV PRN (03:30)
[2017-07-24] MEDS ORDERED: LEVALBUTEROL/IPRATROPIUM NEB INH PRN ×2 (03:30)
[2017-07-24] MEDS ORDERED: MoRPHine SULFATE 4 MG/ML 1 ML CARP\\VIAL IV PRN (03:30)
[2017-07-24] MEDS ORDERED: NITROGLYCERIN 0.4 MG SL PER TAB CHARGE SL PRN (03:30)
[2017-07-24] MEDS ORDERED: ACETAMINOPHEN 325 MG TAB PO PRN (03:30)
[2017-07-24] MEDS ORDERED: OXYCODONE/ACETAMINOPHEN 5-325 TAB PO PRN (03:30)
[2017-07-24] MEDS ORDERED: METHYLPREDNISOLONE IV 40 MG in SYRINGE 0 ML IV ONE ×2 (03:45→23:15)
[2017-07-24] MEDS ORDERED: IPRATROPIUM BROMIDE NEB SOLN 0.02% 2.5 ML VIAL INH STA (03:59)
[2017-07-24] MEDS ORDERED: LEVALBUTEROL 1.25MG/0.5ML NEB INH STA (03:59)
[2017-07-24] MEDS ORDERED: IPRATROPIUM BROMIDE NEB SOLN 0.02% 2.5 ML VIAL INH PRN (04:00)
[2017-07-24] MEDS ORDERED: LEVALBUTEROL 1.25MG/0.5ML NEB INH PRN (04:00)
[2017-07-24] MEDS ORDERED: METOPROLOL TARTRATE 1 MG/ML VIAL IV STA (04:24)
[2017-07-24] MEDS ORDERED: OLANZAPINE 10 MG/2.1 ML SDV IM STA (04:24)
[2017-07-24] MEDS ORDERED: WARFARIN SOD 5 MG TAB PO STA (04:32)
[2017-07-24] MEDS ORDERED: INSULIN GLARGINE SOLOSTAR 100 UNITS/ML 3 ML PEN SC ONE (05:30)
[2017-07-24] MEDS ORDERED: METOPROLOL TARTRATE 50 MG TAB PO ONE ×3 (05:30→20:19)
[2017-07-24] MEDS ORDERED: MAGNESIUM SULFATE 1GM / D5W 1 GM in PREMIXED IN D5W 100 ML IV ONE (05:30)
[2017-07-24] MEDS ORDERED: DOXYCYCLINE IV 100 MG in DEXTROSE 5% 100ML 100 ML IV ONE (06:00)
[2017-07-24 06:04] LABS: HEMATOCRIT 36.5 % (37-47); HEMOGLOBIN 10.9 g/dL (12.0-16.0)
[2017-07-24 06:09] LABS: RETIC COUNT % 1.8 % (0.5-2.0)
[2017-07-24] MEDS: IPRATROPIUM BROMIDE NEB SOLN 0.02% 2.5 ML VIAL INH SCH ×3 (07:15→19:38)
[2017-07-24] MEDS: LEVALBUTEROL 1.25MG/0.5ML NEB INH SCH ×3 (07:15→19:38)
--- NOTE | 2017-07-24 07:21 | DIAGNOSTIC IMAGING REPORT ---
CT ANGIOGRAM OF THE CHEST CLINICAL HISTORY: Dyspnea. Hypoxia. COMPARISON STUDY: Chest x-ray dated 07/23/2017. TECHNIQUE: Following the IV administration of 92 cc of Optiray 320, CT angiogram of the chest was performed from the upper abdomen to the thoracic inlet utilizing the pulmonary embolus protocol. Images are reviewed in the axial, sagittal, and coronal planes. 3-D MIPS images are created and assessed. IV contrast was administered without complication. A dose lowering technique was utilized adhering to the principles of ALARA. The examination is degraded by streak artifact from the patient's arms which could not be elevated above the chest as well as motion artifact. CT DOSE: 1513.58 mGy.cm FINDINGS: Thyroid: Imaged portions of the thyroid gland are normal in size and attenuation. Thoracic aorta: There is atherosclerotic calcification of the thoracic aorta, which is normal in caliber and demonstrates standard 3-vessel arch anatomy. The thoracic aorta is not well opacified. Pulmonary vasculature: The main pulmonary arteries appear enlarged suggesting pulmonary artery hypertension. There are no filling defects identified in main, lobar, or segmental pulmonary branches to suggest pulmonary embolus. Evaluation of the peripheral branches is degraded by motion artifact. Heart: The heart is enlarged and without pericardial effusion. There are coronary artery calcifications. Reflux of contrast in the IVC and hepatic veins suggests cardiac dysfunction. Lungs and pleural spaces: Evaluation of lung parenchyma is degraded by motion artifact. There are small bilateral pleural effusions with associated atelectasis. There is diffuse intralobular septal thickening. Foci of groundglass consolidation are present throughout both lungs. The trachea and central airways are clear. Mediastinum: A high right peritracheal node on image #245 measures 1.2 cm in short axis. Numerous additional prominent mediastinal lymph nodes are identified. Yoly: There are mildly enlarged hilar nodes. A right hilar node on image #166 measures 1.4 cm in short axis. Axillae: There is no axillary lymphadenopathy. Upper abdomen: Partially visualized upper abdominal viscera is within normal limits. Skeletal structures: The skeletal structures are osteopenic. Arthritic change is seen in the thoracic spine and shoulders. No lytic or blastic bony lesions are seen. IMPRESSION: 1. Streak and motion degraded examination. 2. There is no evidence of pulmonary embolus in the main, lobar, or segmental pulmonary arteries. 3. Cardiomegaly with evidence of congestive failure. 4. Patchy groundglass change throughout both lungs likely represents interstitial edema. Correlate clinically for evidence of superimposed pneumonia as this could appear similar. 5. Small pleural effusions. 6. Mildly enlarged mediastinal and hilar lymph nodes are nonspecific. Electronically signed by: Augustine Curiel M.D. 07/24/2017 7:20 AM Dictated Date/Time: 07/24/2017 7:14 AM
[2017-07-24] MEDS ORDERED: FUROSEMIDE INJ 40 MG in SYRINGE 0 ML IV ONE (08:00)
--- NOTE | 2017-07-24 08:01 | DIAGNOSTIC IMAGING REPORT ---
SINGLE VIEW CHEST CLINICAL HISTORY: Dyspnea. FINDINGS: An AP, portable, upright chest radiograph is compared to study dated 10/28/2016. The heart is enlarged and there is atherosclerotic calcification of the thoracic aorta. There is pulmonary vascular congestion. Bilateral airspace opacities likely represent interstitial edema. Small pleural effusions are noted. No pneumothorax is seen. The skeletal structures are osteopenic. The bony thorax is grossly intact. IMPRESSION: 1. Cardiomegaly with evidence of congestive failure. 2. Bilateral airspace opacities likely represent interstitial edema. Correlate clinically for evidence of superimposed pneumonia. 3. Small pleural effusions. Electronically signed by: Augustine Curiel M.D. 07/24/2017 8:00 AM Dictated Date/Time: 07/24/2017 7:58 AM
--- NOTE | 2017-07-24 08:15 | HISTORY & PHYSICAL EXAMINATION ---
DATE OF ADMISSION: 07/24/2017 PRIMARY CARE PHYSICIAN: Dr. Toussaint. CHIEF COMPLAINT: Shortness of breath. HISTORY OF PRESENT ILLNESS: History obtained from patient, family, and records. Limited history from the patient secondary to disorientation, hearing impairment , and respiratory distress. Medical history is significant for AFib on Coumadin, PSVT as per records, chronic left bundle branch block, history of nonobstructive CAD as per records, hypertension, and hyperlipidemia. Recent confinement last 2014 for pneumonia and atrial fibrillation with RVR. In the last week, the patient noted to have increased congestion, cough productive of yellow sputum, sore throat, feeling short of breath at times. Inhaler occasionally helping. No sick contacts. Denies aspiration. No unusual fluid retention or weight gain as per family. Family unaware of abdominal pain, black/bloody stools complaints from patient. Patient was seen at PCP's office a few days ago. Diagnosis was "COPD exacerbation." Prescribed Augmentin and prednisone. No improvement. Patient was brought to the Emergency Room by family. At the Emergency Room, the patient received Levaquin, DuoNebs and IV fluids for possible sepsis. Progressive hypoxemia, respiratory distress noted after patient returned from CT. BiPAP initiated. MEDICAL HISTORY: As above. 2003, colonoscopy showed internal hemorrhoids and a 5-mm polyp. "COPD diagnosis" from outpatient Cardiology visit last June,. However spirometry in October 2016 showed restrictive flow volume loops, reduced FVC and FEV. normal FEV1/FVC index with a normal obstruction index seen in restrictive lung disease. 2D echo done in February 2013, showed normal LVH, EF 55%-60%. SURGERIES: She has had cataract surgery, cholecystectomy, D&C, breast biopsy and dental surgery. HOME MEDICATIONS: Include aspirin, Caltrate, Lexapro, Lopressor, Prilosec, and Coumadin. ALLERGIES: INDOMETHACIN, TRAMADOL, AND ROFECOXIB. FAMILY HISTORY: Stroke. PERSONAL AND SOCIAL HISTORY: Nonsmoker. No chronic intake of alcohol. 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 REVIEW OF SYSTEMS: Could not be obtained. PHYSICAL EXAMINATION: VITAL SIGNS: Blood pressure noted to be initially 170/73 later 158/73 HI 95 later 130s RR 33 T 37.1 O2 sats initially 94 on 3 liters and later 94 on BiPAP. GEN : Noted to be disoriented, respiratory distress. SKIN: Pallor and warmth. HEENT: [place] palpebral conjuctivae. Dry mucosa. No ptosis. BiPAP in place. NECK: Short neck. JVD. Supple. CHEST: Rhonchi bilateral and wheezing. No chest wall tenderness. HEART: Irregular. Tachycardic. ABDOMEN: Some distention. Nontender. EXTREMITIES: Venous stasis. No tenderness. No other gross deformities. NEUROLOGIC: Disoriented. No facial asymmetry. LABORATORY DATA: Hemoglobin was 10.5, WBC 10, platelets noted to be 146. Sodium noted to be 140, potassium 4.2, chloride 104, CO2 of 24, BUN 22, creatinine 0.9, and glucose 158. BNP 2962. Lactic acid was 2.2. INR was 1.5. Chest x-ray as per my interpretation cardiomegaly, congestion, pleural effusions CT chest showed small pleural effusions, ground-glass opacities, and bilateral interstitial thickening. CHF versus atypical infection. Mediastinal and hilar adenopathy. EKG as per my interpretation, rate 95, atrial fibrillation, LAD, left bundle branch block. ASSESSMENT: 1. Acute hypoxemic respiratory failure multifactorial : complicated bronchitis, possible sepsis. Failed outpatient therapy. Decompensated heart failure secondary to complicated bronchitis, compounded by fluid overload, uncontrolled AF 2. Nonocclusive coronary artery disease as per records 3. atrial fibrillation, uncontrolled secondary to respiratory distress. INR subtherapeutic 4. HTN, slightly elevated 5. Chronic LBBB 6. Normocytic anemia. No known bleeding as per family. PLAN: PCU. Continue BiPAP. Baseline ABG. Stat Lasix for CHF. CS, follow lactic acid, check flu swab; Doxycycline for complicated bronchitis. Solu-Medrol one dose for bronchospasm. (Patient may benefit from additional steroid doses.) Nebs RTC. prn Strict IOS. Daily weights. Update TTE , Cardio consult RE decompensated heart failure Facilitate home beta jaclyn for rate control. Pulmonary consult RE respiratory failure. Anemia workup DVT prophylaxis, Coumadin, INR 2-3. DNR as per patient's previous wishes as per family. Patient's daughter requesting for updates from providers. Enedina Leon at [phone]. Total critical care time was 50 minutes. MTDD
[2017-07-24 08:17] LABS: BLOOD UREA NITROGEN 23 mg/dl (7-18); CALCIUM 8.7 mg/dl (8.5-10.1); CARBON DIOXIDE 23 mmol/L (21-32); GLUCOSE 156 mg/dl (70-99); POTASSIUM 4.3 mmol/L (3.5-5.1); SODIUM 137 mmol/L (136-145)
[2017-07-24 08:28] LABS: HEMOGLOBIN A1C 5.9 % (4.5-5.6)
--- NOTE | 2017-07-24 08:42 | DIAGNOSTIC IMAGING REPORT ---
SINGLE VIEW CHEST CLINICAL HISTORY: Respiratory distress. FINDINGS: An AP, portable, upright chest radiograph is compared to study dated 07/23/2017 and correlated with chest CT performed the same day 07/24/2017. The heart is enlarged and there is atherosclerotic calcification of the thoracic aorta. There is pulmonary vascular congestion an interstitial edema. This has significantly worsened from yesterday. Small pleural effusions are identified. No pneumothorax is seen. The skeletal structures are osteopenic. The bony thorax is grossly intact. IMPRESSION: 1. Cardiomegaly with evidence of congestive failure and interstitial edema. This has worsened from yesterday. Correlate clinically for evidence of superimposed pneumonia. 2. Small pleural effusions. Electronically signed by: Augustine Curiel M.D. 07/24/2017 8:41 AM Dictated Date/Time: 07/24/2017 8:40 AM
[2017-07-24] MEDS ORDERED: METOPROLOL TARTRATE 50 MG TAB PO SCH ×3 (09:00→21:00)
[2017-07-24] MEDS ORDERED: PANTOprazole SOD 40 MG TAB PO SCH (09:00)
[2017-07-24] MEDS ORDERED: LEVALBUTEROL/IPRATROPIUM NEB INH SCH ×2 (09:00)
--- NOTE | 2017-07-24 10:17 | ECHOCARDIOGRAM REPORT ---
*NOTICE TO RECEIVING REPUBLICAN AGENCY This information is strictly Confidential and protected under [place] law. [place] law prohibits you from making any further disclosure of this information unless further disclosure is expressly permitted by the written consent of the person to whom it pertains or is authorized by law. A general authorization for the release of medical or other information is not sufficient for this purpose. Hospital accepts no responsibility if the information is made available to any other person, INCLUDING THE PATIENT. Interpretation Summary * Name: TAHMINA MYERS Study Date: 07/24/2017 06:36 AM BP: 136/106 mmHg * [facility]\S\N276\S\1 HR: 105 * : 1930 (M/d/yyyy) Gender: Female Height: 67 in * Age: 86 yrs Ethnicity: [place] Weight: 187 lb * Ordering Physician: Ángel Hathaway * Referring Physician: Self, Referred * Performed By: Dolly Reynaga RDCS * * Reason For Study: CHF * BSA: 2.0 m2 * -- Conclusions -- * Normal LV chamber size with mild concentric LVH. * Normal LV systolic function with abnormal septal wall motion consistent with LBBB pattern, otherwise, normal. EF 55-60%. * Diastolic dysfunction is present given left atrial enlargement. * The right ventricular cavity size is normal (basal dimension <4.2 cm in right ventricular apical 4-chamber view). The right ventricular systolic function is reduced as assessed by tricuspid annular plane systolic excursion (TAPSE) (TAPSE <1.6 cm). * Aortic valve sclerosis mild, without significant aortic valvular stenosis. * Mild mitral regurgitation. * Trace tricuspid regurgitation. * Mild left atrial enlargement. Procedure Details * A complete two-dimensional transthoracic echocardiogram was performed (2D, M-mode, Doppler and color flow Doppler). Left Ventricle * The left ventricle is normal in size. * There is mild concentric left ventricular hypertrophy. * Ejection Fraction = 55-60%. * Left ventricular systolic function is normal. * Septal motion is consistent with conduction abnormality. Right Ventricle * The right ventricular cavity size is normal (basal dimension <4.2 cm in right ventricular apical 4-chamber view). * The right ventricular systolic function is reduced as assessed by tricuspid annular plane systolic excursion (TAPSE) (TAPSE <1.6 cm). Atria * The left atrium is mildly dilated. * Right atrial size is normal. * No ASD detected; PFO is not assessed. Mitral Valve * The mitral valve anatomy is normal. * There is no mitral valve stenosis. * There is mild mitral regurgitation. Tricuspid Valve * The tricuspid valve anatomy is normal. * There is no tricuspid stenosis. * There is trace tricuspid regurgitation. Aortic Valve * The aortic valve is trileaflet. * Aortic valve sclerosis mild, without significant aortic valvular stenosis. * There is no significant aortic regurgitation. Pulmonic Valve * The pulmonary valve is not well seen, but the Doppler examination is normal without significant regurgitation or stenosis. Great Vessels * The aortic root and proximal ascending aorta are normal sized. Pericardium/Pleural * There is no pericardial effusion. MMode 2D Measurements and Calculations IVSd 1.2 cm LVIDd 3.8 cm LVIDs 3.0 cm LVPWd 1.2 cm IVS/LVPW 1.0 FS 21.8 % EDV(Teich) 62.0 ml ESV(Teich) 34.2 ml EF(Teich) 44.8 % EDV(cubed) 54.9 ml ESV(cubed) 26.3 ml EF(cubed) 52.2 % LV mass(C)d 148.3 grams LV mass(C)dI 75.5 grams/m\S\2 SV(Teich) 27.8 ml SI(Teich) 14.1 ml/m\S\2 SV(cubed) 28.7 ml SI(cubed) 14.6 ml/m\S\2 Ao root diam 2.7 cm Ao root area 5.6 cm\S\2 ACS 1.8 cm LA dimension 3.5 cm asc Aorta Diam 3.1 cm LA/Ao 1.3 LVOT diam 2.0 cm LVOT area 3.0 cm\S\2 LVAd ap4 21.1 cm\S\2 LVLd ap4 6.9 cm EDV(MOD-sp4) 56.0 ml EDV(sp4-el) 54.9 ml LVAs ap4 14.8 cm\S\2 LVLs ap4 6.3 cm ESV(MOD-sp4) 32.3 ml ESV(sp4-el) 29.5 ml EF(MOD-sp4) 42.4 % EF(sp4-el) 46.3 % LVAd ap2 25.9 cm\S\2 LVLd ap2 7.3 cm EDV(MOD-sp2) 75.1 ml EDV(sp2-el) 77.7 ml LVAs ap2 18.4 cm\S\2 LVLs ap2 7.1 cm ESV(MOD-sp2) 40.3 ml ESV(sp2-el) 40.5 ml EF(MOD-sp2) 46.3 % EF(sp2-el) 47.8 % LVLd %diff 6.2 % EDV(MOD-bp) 67.0 ml LVLs %diff 10.2 % ESV(MOD-bp) 37.7 ml EF(MOD-bp) 43.8 % SV(MOD-sp4) 23.7 ml SI(MOD-sp4) 12.1 ml/m\S\2 SV(MOD-sp2) 34.7 ml SI(MOD-sp2) 17.7 ml/m\S\2 SV(MOD-bp) 29.4 ml SI(MOD-bp) 14.9 ml/m\S\2 SV(sp4-el) 25.4 ml SI(sp4-el) 12.9 ml/m\S\2 SV(sp2-el) 37.1 ml SI(sp2-el) 18.9 ml/m\S\2 Doppler Measurements and Calculations MV E max tiburcio 94.1 cm/sec MV dec time 0.23 sec Ao V2 max 121.2 cm/sec Ao max PG 5.9 mmHg Ao max PG (full) 3.5 mmHg LIONEL(V,A) 1.9 cm\S\2 LIONEL(V,D) 1.9 cm\S\2 LV V1 max PG 2.3 mmHg LV V1 max 76.6 cm/sec PA V2 max 74.7 cm/sec PA max PG 2.2 mmHg PA acc slope 505.1 cm/sec\S\2 PA acc time 0.08 sec TR max tiburcio 234.2 cm/sec PA pr(Accel) 41.0 mmHg
[2017-07-24] MEDS: WARFARIN SOD 5 MG TAB PO SCH (15:50)
[2017-07-24] MEDS: ASPIRIN 81 MG ECTAB PO SCH (16:00)
[2017-07-24] MEDS: ESCITALOPRAM OXALATE 10 MG TAB PO SCH (16:00)
--- NOTE | 2017-07-24 16:58 | CARDIOLOGY CONSULTATION ---
DATE OF CONSULTATION: 07/24/2017 DATE OF CONSULTATION: 07/24/2017 CONSULTATION REQUESTED BY: Dr. Hathaway. REASON FOR CONSULTATION: Shortness of breath with possible CHF exacerbation. HISTORY OF PRESENT ILLNESS: Mrs. Cooper is a very pleasant 86-year-old woman who normally follows with Tariq Salazar of our cardiology practice. She presented to [facility] on 07/23/2017 with a complaint of shortness of breath. The patient is currently on BiPAP and difficult to arouse. Her daughter was at bedside. History was obtained through discussion with the patient's daughter and review of medical records. The patient's daughter states that she sees the patient on a daily basis and her symptoms started approximately 6 days ago. She started coming down with a cough and did not think much of it. Her symptoms gradually progressed to the point where she was becoming significantly shortness of breath with increased chest congestion and a productive cough along with sore throat; however she did not complain of chest pain or palpitations at all during this time. Her symptoms progressed to the point where on the she became severely short of breath and the daughter feared for her life and she was brought into the Emergency Department. In the Emergency Department she was found to be rather hypoxic, was initiated on BiPAP. She was given a dose of IV Lasix and started on antibiotics. She was then admitted to telemetry. Nursing reports that since admission to telemetry she is starting to look better and she is now more awake and responding more appropriately. Her saturations have been stable. PAST SURGICAL HISTORY: 1. Cardiac catheterization 2003, 30% proximal LAD disease, otherwise normal coronary arteries. 2. D&C. 3. Cholecystectomy. 4. Breast biopsy. 5. Dental surgery. 6. Cataract excision bilaterally. 7. Right hip replacement. MEDICAL ILLNESSES: 1. Chronic atrial fibrillation on chronic Coumadin therapy. 2. History of paroxysmal supraventricular tachycardia. 3. Chronic left bundle branch block. 4. Nonobstructive coronary artery disease. 5. COPD. 6. Hypertension. 7. Hyperlipidemia. FAMILY HISTORY: Noncontributory. SOCIAL HISTORY: Denies any alcohol, tobacco or recreational drug use. She is . She had 3 children. 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 REVIEW OF SYSTEMS: Unobtainable given the patient's current mental status. ALLERGIES: 1. INDOMETHACIN. 2. PROPOXYPHENE. 3. ROFECOXIB. 4. TRAMADOL. MEDICATIONS AN OUTPATIENT: 1. Metoprolol tartrate 50 mg b.i.d. 2. Coumadin as directed by the Coumadin clinic. 3. Aspirin 81 mg daily. 4. Simvastatin 20 mg daily. 5. Prilosec daily. 6. Lexapro daily. PHYSICAL EXAMINATION: VITALS: Temperature 37.1, pulse 111, respiratory rate 12, blood pressure 111/57. GENERAL: Asleep but arousable, currently resting comfortably on BiPAP. HEAD, EYES, EARS, NOSE, AND THROAT: Normocephalic, atraumatic. Pupils equal, round, and reactive to light and accommodation. Extraocular muscles intact. Anicteric sclerae. Moist mucous membranes. NECK: No JVD, no bruit. CARDIOVASCULAR: Irregularly irregular but distant due to breath sounds. PULMONARY: Diffuse rhonchi throughout, scant wheezing, no rales. ABDOMEN: Bowel sounds x4, soft. No rebound, guarding, tenderness. No organomegaly. EXTREMITIES: No clubbing, cyanosis or edema. +2 pedal pulses bilaterally. SKIN: Warm and dry. Chest x-ray independently reviewed at this time shows diffuse patchy opacities with no significant effusion. A 2D echocardiogram performed today showed normal LV chamber size with mild concentric LVH, normal LV systolic function with abnormal septal wall motion abnormality consistent with left bundle branch block pattern, otherwise normal. EF 65-60%. Diastolic dysfunction was present. Given left atrial enlargement, reduced RV systolic function, mild aortic valve sclerosis without stenosis, mild mitral regurgitation, trace tricuspid regurgitation, mild left atrial enlargement. IMPRESSION: 1. Acute hypoxic respiratory failure secondary to upper respiratory infection. 2. Slight volume overload. 3. Diastolic dysfunction with normal left ventricular systolic function. 4. Persistent atrial fibrillation with elevated rates at this time compensatory. 5. Diastolic dysfunction with normal ventricular systolic function. RECOMMENDATIONS: It was my pleasure to see Mrs. Cooper in consultation today. From a cardiac standpoint, I really do not see much cardiac contribution to her current clinical state. She did have some volume overload on presentation but nowhere near enough to explain her decompensation. She already received one dose of IV Lasix and given the likelihood of infectious process I would hold off any further diuresis at this time. Otherwise her rates are elevated but this is compensatory mechanism and I would not further rate control. Her Coumadin can be increased to maintain her INR between 2 and 3 but no other cardiac intervention will be necessary at this time. I would recommend giving consideration to a pulmonary medicine evaluation, but other than that we will continue to monitor on telemetry for now.
[2017-07-24] MEDS: DOXYCYCLINE IV 100 MG in DEXTROSE 5% 100ML 100 ML IV SCH (17:39)
--- NOTE | 2017-07-24 18:06 | Progress Note ---
Medicine Progress Note Date & Time of Visit: Jul 24, 2017 at 10:36. Subjective Pt was seen and examined Lying in bed obtunded with BIPAP on daughter at bedside Having a hard time to wake her up Updated to daughter that we will continue the bipap for now since pt is DNR Vital are stable Objective Last 8 Hrs Date Time Temp Pulse Resp B/P (MAP) Pulse Ox O2 Delivery O2 Flow Rate FiO2 07/24/17 16:26 36.6 91 26 116/63 (80) 94 3.5 07/24/17 16:00 93 Nasal Cannula 3.0 07/24/17 14:10 109 97 40 07/24/17 14:10 109 41 97 BiPAP/CPAP 40 07/24/17 12:21 37.1 111 22 111/57 (75) 98 BiPAP 80 07/24/17 12:05 98 BiPAP 80 07/24/17 11:37 74 92 40 Physical Exam: General- obtunded Head- atraumatic Eyes- PERRL ENT- BIPAP mask on Neck- supple, no JVD Lungs- +rhonchi Heart- irregular rhythm Abdomen- normal bowel sounds Extremities- no calf tenderness Neuro- obtunded Skin- warm & dry Laboratory Results: Last 24 Hours Test 07/23/17 23:00 07/23/17 23:25 07/24/17 01:11 07/24/17 02:20 White Blood Count 8.05 K/uL Red Blood Count 4.02 M/uL Hemoglobin 10.5 g/dL Hematocrit 34.9 % Mean Corpuscular Volume 86.8 fL Mean Corpuscular Hemoglobin 26.1 pg Mean Corpuscular Hemoglobin Concent 30.1 g/dl Platelet Count 146 K/uL Mean Platelet Volume 10.2 fL Neutrophils (%) (Auto) 83.6 % Lymphocytes (%) (Auto) 5.3 % Monocytes (%) (Auto) 10.8 % Eosinophils (%) (Auto) 0.0 % Basophils (%) (Auto) 0.1 % Neutrophils # (Auto) 6.72 K/uL Lymphocytes # (Auto) 0.43 K/uL Monocytes # (Auto) 0.87 K/uL Eosinophils # (Auto) 0.00 K/uL Basophils # (Auto) 0.01 K/uL RDW Standard Deviation 54.5 fL RDW Coefficient of Variation 17.0 % Immature Granulocyte % (Auto) 0.2 % Immature Granulocyte # (Auto) 0.02 K/uL Sodium Level 140 mmol/L Potassium Level 4.2 mmol/L Chloride Level 104 mmol/L Carbon Dioxide Level 24 mmol/L Anion Gap 12.0 mmol/L Blood Urea Nitrogen 22 mg/dl Creatinine 0.93 mg/dl Est Creatinine Clear Calc Drug Dose 46.8 ml/min Estimated GFR () 63.6 Estimated GFR (Non- 54.9 BUN/Creatinine Ratio 23.9 Random Glucose 158 mg/dl Lactic Acid Level 2.2 mmol/L Calcium Level 8.8 mg/dl Magnesium Level 1.6 mg/dl Total Bilirubin 0.7 mg/dl Aspartate Amino Transf (AST/SGOT) 22 U/L Alanine Aminotransferase (ALT/SGPT) 22 U/L Alkaline Phosphatase 84 U/L Total Creatine Kinase 125 U/L Creatine Kinase MB 2.4 ng/ml Creatine Kinase MB Ratio 1.9 Troponin I < 0.015 ng/ml Pro-B-Type Natriuretic Peptide 2962 pg/ml Total Protein 7.0 gm/dl Albumin 3.4 gm/dl Globulin 3.6 gm/dl Albumin/Globulin Ratio 0.9 Thyroid Stimulating Hormone (TSH) 1.270 uIu/ml Influenza Type A Antigen Neg for Influ A Influenza Type B Antigen Neg for Influ B Prothrombin Time 15.4 SECONDS Prothromb Time International Ratio 1.5 Activated Partial Thromboplast Time 30.6 SECONDS Partial Thromboplastin Ratio 1.2 Influenza Type A (RT-PCR) Neg for Influ A Influenza Type B (RT-PCR) Neg for Influ B Test 07/24/17 05:46 07/24/17 05:47 07/24/17 06:08 07/24/17 06:30 Arterial Blood pH 7.20 Arterial Blood Partial Pressure CO2 59 mmHg Arterial Blood Partial Pressure O2 79 mm/Hg Arterial Blood HCO3 23 mmol/L Arterial Blood Oxygen Saturation 92.5 % Arterial Blood Base Excess -5.7 mEq/L Arterial Blood Gas Delivery 100% Khurram Test POS Lactic Acid Level 1.2 mmol/L Hemoglobin 10.9 g/dL Hematocrit 36.5 % Absolute Reticulocyte Count 0.08 10^6/uL Percent Reticulocyte Count 1.8 % Estimated Average Glucose 123 mg/dl Hemoglobin A1c 5.9 % Iron Level 37 mcg/dl Total Iron Binding Capacity 383 mcg/dl Transferrin 299 mg/dl Transferrin % Saturation 9 % Ferritin 86.0 ng/ml Troponin I < 0.015 ng/ml Vitamin B12 Level 446 pg/mL Folate 19.66 ng/mL Procalcitonin 0.14 ng/ml Bedside Glucose 165 mg/dl Urine Color YELLOW Urine Appearance CLEAR Urine pH 6.5 Urine Specific [place] 1.016 Urine Protein NEG Urine Glucose (UA) NEG Urine Ketones NEG Urine Occult Blood 1+ Urine Nitrite NEG Urine Bilirubin NEG Urine Urobilinogen NEG Urine Leukocyte Esterase NEG Urine WBC (Auto) 0 /hpf Urine RBC (Auto) 5-10 /hpf Urine Hyaline Casts (Auto) 0 /lpf Urine Epithelial Cells (Auto) 5-10 /lpf Urine Bacteria (Auto) NEG Test 07/24/17 07:15 07/24/17 10:40 Arterial Blood pH 7.26 7.34 Arterial Blood Partial Pressure CO2 54 mmHg 45 mmHg Arterial Blood Partial Pressure O2 242 mm/Hg 81 mm/Hg Arterial Blood HCO3 23 mmol/L 24 mmol/L Arterial Blood Oxygen Saturation 99.6 % 94.8 % Arterial Blood Base Excess -4.0 mEq/L -1.9 mEq/L Arterial Blood Gas Delivery 100% 40% Khurram Test POS POS Sodium Level 137 mmol/L Potassium Level 4.3 mmol/L Chloride Level 104 mmol/L Carbon Dioxide Level 23 mmol/L Anion Gap 11.0 mmol/L Blood Urea Nitrogen 23 mg/dl Creatinine 1.00 mg/dl Est Creatinine Clear Calc Drug Dose 44.9 ml/min Estimated GFR () 58.3 Estimated GFR (Non- 50.3 BUN/Creatinine Ratio 23.4 Random Glucose 156 mg/dl Calcium Level 8.7 mg/dl Magnesium Level 2.2 mg/dl Troponin I < 0.015 ng/ml Date/Time Source Procedure Growth Status 07/23/17 23:45 Blood Blood Culture Pending Received 07/23/17 23:00 Blood Blood Culture Pending Received Assessment & Plan Acute hypercapnia respiratory failure Multifactorial due CHF/bronchitis/pneumonia CXR showed cardiomegaly with evidence of congestive failure and bilateral airspace opacities CTA chest negative for PE. Patchy ground glass change throughout both lungs likely represents interstitial edema. ABG on admission showed respiratory acidosis Continue BIPAP intermittently and at bedtime Continue IV doxycycline, neb treatment and steroid Blood cx pending Procalcitonin wnl Hold narcotic for now pulmonary on board Acute Decompensated diastolic heart failure CXR showed cardiomegaly with evidence of congestive failure Received IV lasix Cardiology on board Recommended to hold on further diuresis for now ECHO * Normal LV chamber size with mild concentric LVH. * Normal LV systolic function with abnormal septal wall motion consistent with LBBB pattern, otherwise, normal. EF 55-60%. * Diastolic dysfunction is present given left atrial enlargement. * The right ventricular cavity size is normal (basal dimension <4.2 cm in right ventricular apical 4-chamber view). The right ventricular systolic function is reduced as assessed by tricuspid annular plane systolic excursion ( TAPSE) (TAPSE <1.6 cm). * Aortic valve sclerosis mild, without significant aortic valvular stenosis. * Mild mitral regurgitation. * Trace tricuspid regurgitation. * Mild left atrial enlargement. CAD Troponin x3 sets negative Continue metoprolol and aspirin Atrial fibrillation Rate improved INR 1.5 On Coumadin 5 mg Continue monitor in tele HTN BP stable DVT px on coumadin INR 1.5 CODE STATUS FULL CODE Consultants: Pulm cardio Current Inpatient Medications: Current Inpatient Medications Medications (Trade) Dose Ordered Sig/Michael Route Start Time Stop Time Status Last Admin Dose Admin Ioversol (Optiray 320) 125 ml UD PRN IV 07/24/17 00:30 07/28/17 00:29 Acetaminophen (Tylenol Tab) 650 mg Q4H PRN PO 07/24/17 03:30 08/23/17 03:29 Nitroglycerin (Nitrostat Tab) 0.4 mg UD PRN SL 07/24/17 03:30 08/23/17 03:29 Doxycycline Hyclate 100 mg/ Dextrose 110 ml @ 50 mls/hr Q12H IV 07/24/17 18:00 07/31/17 17:59 Aspirin (Ecotrin Tab) 81 mg DAILY PO 07/24/17 09:00 08/23/17 08:59 Future Hold Escitalopram Oxalate (Lexapro Tab) 10 mg DAILY PO 07/24/17 09:00 08/23/17 08:59 Future Hold Pantoprazole Sodium (Protonix Tab) 40 mg QAM PO 07/24/17 09:00 08/23/17 08:59 Future Hold Morphine Sulfate (MoRPHine SULFATE INJ) 4 mg Q6H PRN IV 07/24/17 03:30 08/07/17 03:29 07/24/17 05:49 4 MG Prochlorperazine Edisylate 5 mg/ Syringe 5 ml @ 5 mls/min Q6H PRN IV 07/24/17 03:30 08/23/17 03:29 Warfarin Sodium (Coumadin Tab) 5 mg DAILY@16 PO 07/24/17 16:00 08/23/17 15:59 07/24/17 15:50 5 MG Oxycodone/ Acetaminophen (Percocet 5-325mg Tab) 1 tab Q6H PRN PO 07/24/17 03:30 08/07/17 03:29 Future Hold Ipratropium Shorter (Atrovent 0.02% 0.5MG/2.5ML Neb) 0.5 mg Q6R INH 07/24/17 09:00 08/23/17 08:59 07/24/17 14:10 0.5 MG Levalbuterol (Xopenex 1.25MG/ 0.5ML Neb) 1.25 mg Q6R INH 07/24/17 09:00 08/23/17 08:59 07/24/17 14:10 1.25 MG Ipratropium Shorter (Atrovent 0.02% 0.5MG/2.5ML Neb) 0.5 mg Q4H PRN INH 07/24/17 04:00 08/23/17 03:59 Levalbuterol (Xopenex 1.25MG/ 0.5ML Neb) 1.25 mg Q4H PRN INH 07/24/17 04:00 08/23/17 03:59 Metoprolol Tartrate (Lopressor Tab) 50 mg BID PO 07/24/17 21:00 08/23/17 08:59 Future Hold
[2017-07-24] MEDS ORDERED: ACETAMINOPHEN 325 MG TAB PO ONE (19:46)
[2017-07-24] MEDS ORDERED: GUAIFENESIN 600 MG TABCR PO ONE (22:58)
[2017-07-25] VITALS (13 sets, daily range): BP systolic 121–159; BP diastolic 73–94; PULSE 82–121; TEMP 36.3–37.5; O2SAT 91–97
[2017-07-25] MEDS: IPRATROPIUM BROMIDE NEB SOLN 0.02% 2.5 ML VIAL INH SCH ×6 (01:47→21:00)
[2017-07-25] MEDS: LEVALBUTEROL 1.25MG/0.5ML NEB INH SCH ×6 (01:47→21:00)
[2017-07-25] MEDS: DOXYCYCLINE IV 100 MG in DEXTROSE 5% 100ML 100 ML IV SCH ×2 (05:44→17:53)
[2017-07-25 06:54] LABS: HEMATOCRIT 32.6 % (37-47); HEMOGLOBIN 9.9 g/dL (12.0-16.0); MEAN CELL VOLUME 85.8 fL (80-100); MEAN CORPUSCULAR HEMOGLOBIN 26.1 pg (25-34); MEAN CORPUSCULAR HGB CONC 30.4 g/dl (32-36); MEAN PLATELET VOLUME 10.4 fL (7.4-10.4); PLATELET COUNT 116 K/uL (130-400); RED CELL DISTRIBUTION WIDTH CV 17.4 % (11.5-14.5); RED CELL DISTRIBUTION WIDTH SD 54.3 fL (36.4-46.3); WHITE BLOOD COUNT 14.11 K/uL (4.8-10.8)
[2017-07-25 07:02] LABS: INR 2.3 (0.9-1.1)
[2017-07-25 07:24] LABS: CALCIUM 8.7 mg/dl (8.5-10.1); CREATININE 0.95 mg/dl (0.60-1.20); POTASSIUM 3.6 mmol/L (3.5-5.1)
[2017-07-25 07:30] LABS: BASO % 0.1 %; BASO ABS # 0.01 K/uL (0-0.2); IG# 0.05 K/uL (0.00-0.02); LYMPH % 2.3 %; LYMPH ABS # 0.33 K/uL (1.2-3.4); MONO % 2.6 %; MONO ABS # 0.36 K/uL (0.11-0.59); NEUT % 94.6 %; NEUT ABS # 13.36 K/uL (1.4-6.5)
[2017-07-25] MEDS: ASPIRIN 81 MG ECTAB PO SCH (07:56)
[2017-07-25] MEDS: METOPROLOL TARTRATE 50 MG TAB PO SCH ×2 (07:56→21:30)
[2017-07-25] MEDS: ESCITALOPRAM OXALATE 10 MG TAB PO SCH (07:56)
[2017-07-25] MEDS: GUAIFENESIN 600 MG TABCR PO SCH ×2 (07:56→21:29)
[2017-07-25] MEDS ORDERED: COUGH DROP (SUGAR FREE) LOZ 24 LOZ/1 BOX LOZ ONE (10:25)
[2017-07-25] MEDS: WARFARIN SOD 5 MG TAB PO SCH (16:12)
[2017-07-25] MEDS ORDERED: FUROSEMIDE 20 MG TAB PO ONE (18:30)
--- NOTE | 2017-07-25 18:35 | Progress Note ---
Medicine Progress Note Date & Time of Visit: Jul 25, 2017 at 12:27. Subjective Pt was seen and examined Sitting in chair comfortable eating lunch family member at bedside Pt said that she feels fine she refused the bipap last night Daughter said that she does not use oxygen at home denies chest pain, palpitation and fever Objective Last 8 Hrs Date Time Temp Pulse Resp B/P (MAP) Pulse Ox O2 Delivery O2 Flow Rate FiO2 07/25/17 16:00 91 Nasal Cannula 4.0 07/25/17 14:53 36.7 101 22 136/73 (94) 91 Nasal Cannula 4.0 07/25/17 14:23 103 20 94 Nasal Cannula 4.0 07/25/17 12:05 93 Nasal Cannula 4.0 07/25/17 11:35 36.3 105 18 147/75 (99) 94 Nasal Cannula 4.0 Physical Exam: General- obtunded Head- atraumatic Eyes- PERRL ENT- BIPAP mask on Neck- supple, no JVD Lungs- +rhonchi Heart- irregular rhythm Abdomen- normal bowel sounds Extremities- no calf tenderness Neuro- obtunded Skin- warm & dry Laboratory Results: Last 24 Hours Test 07/25/17 06:41 White Blood Count 14.11 K/uL Red Blood Count 3.80 M/uL Hemoglobin 9.9 g/dL Hematocrit 32.6 % Mean Corpuscular Volume 85.8 fL Mean Corpuscular Hemoglobin 26.1 pg Mean Corpuscular Hemoglobin Concent 30.4 g/dl Platelet Count 116 K/uL Mean Platelet Volume 10.4 fL Neutrophils (%) (Auto) 94.6 % Lymphocytes (%) (Auto) 2.3 % Monocytes (%) (Auto) 2.6 % Eosinophils (%) (Auto) 0.0 % Basophils (%) (Auto) 0.1 % Neutrophils # (Auto) 13.36 K/uL Lymphocytes # (Auto) 0.33 K/uL Monocytes # (Auto) 0.36 K/uL Eosinophils # (Auto) 0.00 K/uL Basophils # (Auto) 0.01 K/uL RDW Standard Deviation 54.3 fL RDW Coefficient of Variation 17.4 % Immature Granulocyte % (Auto) 0.4 % Immature Granulocyte # (Auto) 0.05 K/uL Prothrombin Time 23.7 SECONDS Prothromb Time International Ratio 2.3 Arterial Blood pH 7.40 Arterial Blood Partial Pressure CO2 44 mmHg Arterial Blood Partial Pressure O2 78 mm/Hg Arterial Blood HCO3 27 mmol/L Arterial Blood Oxygen Saturation 93.7 % Arterial Blood Base Excess 1.6 mEq/L Arterial Blood Gas Delivery 4L Khurram Test POS Sodium Level 139 mmol/L Potassium Level 3.6 mmol/L Chloride Level 103 mmol/L Carbon Dioxide Level 27 mmol/L Anion Gap 9.0 mmol/L Blood Urea Nitrogen 31 mg/dl Creatinine 0.95 mg/dl Est Creatinine Clear Calc Drug Dose 47.3 ml/min Estimated GFR () 62.0 Estimated GFR (Non- 53.5 BUN/Creatinine Ratio 32.1 Random Glucose 119 mg/dl Calcium Level 8.7 mg/dl Assessment & Plan Acute hypercapnia respiratory failure Multifactorial due CHF/bronchitis/pneumonia CXR showed cardiomegaly with evidence of congestive failure and bilateral airspace opacities CTA chest negative for PE. Patchy ground glass change throughout both lungs likely represents interstitial edema. ABG on admission showed respiratory acidosis Continue BIPAP intermittently and at bedtime Continue IV doxycycline, neb treatment and steroid Blood cx pending Procalcitonin wnl Hold narcotic for now pulmonary on board 07/25 Clinically improved Refused Bipap last night, ABG showed no CO2 retention this morning blood cx no growth Influenza negative Continue IV doxycycline Will change solumedrol to prednisone Continue oxygen supplement Acute Decompensated diastolic heart failure CXR showed cardiomegaly with evidence of congestive failure Received IV lasix Cardiology on board ECHO * Normal LV chamber size with mild concentric LVH. * Normal LV systolic function with abnormal septal wall motion consistent with LBBB pattern, otherwise, normal. EF 55-60%. * Diastolic dysfunction is present given left atrial enlargement. * The right ventricular cavity size is normal (basal dimension <4.2 cm in right ventricular apical 4-chamber view). The right ventricular systolic function is reduced as assessed by tricuspid annular plane systolic excursion ( TAPSE) (TAPSE <1.6 cm). * Aortic valve sclerosis mild, without significant aortic valvular stenosis. * Mild mitral regurgitation. * Trace tricuspid regurgitation. * Mild left atrial enlargement. CAD Troponin x3 sets negative Continue metoprolol and aspirin Atrial fibrillation Rate improved INR 2.3 On Coumadin 5 mg Continue monitor in tele HTN BP stable DVT px on coumadin INR 2.3 CODE STATUS FULL CODE Consultants: Pulm cardio Current Inpatient Medications: Current Inpatient Medications Medications (Trade) Dose Ordered Sig/Michael Route Start Time Stop Time Status Last Admin Dose Admin Ioversol (Optiray 320) 125 ml UD PRN IV 07/24/17 00:30 07/28/17 00:29 Acetaminophen (Tylenol Tab) 650 mg Q4H PRN PO 07/24/17 03:30 08/23/17 03:29 Nitroglycerin (Nitrostat Tab) 0.4 mg UD PRN SL 07/24/17 03:30 08/23/17 03:29 Doxycycline Hyclate 100 mg/ Dextrose 110 ml @ 50 mls/hr Q12H IV 07/24/17 18:00 07/31/17 17:59 07/25/17 17:53 50 MLS/HR Aspirin (Ecotrin Tab) 81 mg DAILY PO 07/24/17 09:00 08/23/17 08:59 Future hold 07/25/17 07:56 81 MG Escitalopram Oxalate (Lexapro Tab) 10 mg DAILY PO 07/24/17 09:00 08/23/17 08:59 Future hold 07/25/17 07:56 10 MG Pantoprazole Sodium (Protonix Tab) 40 mg QAM PO 07/24/17 09:00 08/23/17 08:59 Future Hold Morphine Sulfate (MoRPHine SULFATE INJ) 4 mg Q6H PRN IV 07/24/17 03:30 08/07/17 03:29 Future Hold 07/24/17 05:49 4 MG Prochlorperazine Edisylate 5 mg/ Syringe 5 ml @ 5 mls/min Q6H PRN IV 07/24/17 03:30 08/23/17 03:29 Warfarin Sodium (Coumadin Tab) 5 mg DAILY@16 PO 07/24/17 16:00 08/23/17 15:59 07/25/17 16:12 5 MG Oxycodone/ Acetaminophen (Percocet 5-325mg Tab) 1 tab Q6H PRN PO 07/24/17 03:30 08/07/17 03:29 Future Hold Ipratropium [place] (Atrovent 0.02% 0.5MG/2.5ML Neb) 0.5 mg Q6R INH 07/24/17 09:00 08/23/17 08:59 07/25/17 14:23 0.5 MG Levalbuterol (Xopenex 1.25MG/ 0.5ML Neb) 1.25 mg Q6R INH 07/24/17 09:00 08/23/17 08:59 07/25/17 14:23 1.25 MG Ipratropium [place] (Atrovent 0.02% 0.5MG/2.5ML Neb) 0.5 mg Q4H PRN INH 07/24/17 04:00 08/23/17 03:59 Levalbuterol (Xopenex 1.25MG/ 0.5ML Neb) 1.25 mg Q4H PRN INH 07/24/17 04:00 08/23/17 03:59 Metoprolol Tartrate (Lopressor Tab) 50 mg BID PO 07/25/17 09:00 08/23/17 20:59 07/25/17 07:56 50 MG Guaifenesin (Mucinex Contr Rel Tab) 600 mg Q12 PO 07/25/17 09:00 08/24/17 08:59 07/25/17 07:56 600 MG
--- NOTE | 2017-07-25 19:45 | PULMONARY CONSULTATION ---
DATE OF CONSULTATION: 07/25/2017 PATIENT OF: Ángel Hathaway MD. REASON FOR CONSULTATION: Progressive dyspnea. HISTORY OF PRESENT ILLNESS: An 86-year-old white female, patient of Dr. Toussaint, her primary care physician, who lives at home was admitted by Dr. Hathaway on 07/24/2017 in the late evening. The patient appears disoriented, poor memory and Dr. Hathaway states in his note that the history he obtained was from family and old records. She also was extremely hard of hearing. Her past medical history shows she has had a history of chronic atrial fibrillation on Coumadin, nonobstructive coronary artery disease, hypertension and dyslipidemia. She was treated for pneumonia in 2014 and demonstrated atrial fibrillation with a rapid ventricular response at that time. She has been diagnosed with COPD. PFTs in October 2016 showed a normal FEV1/FVC ratio with mild reduction in forced vital capacity. EF in February 2013 showed a normal ejection fraction of 60%. She states she has been dyspneic for the past several days and has had a sore throat with difficulty swallowing. She was placed on noninvasive positive pressure ventilation last evening which she said made her claustrophobic, but she seems quite stable this morning, able to converse with me, complaining of a sore throat and exhibits periodic paroxysms of coughing. CTA was performed in the ER which showed motion artifact that was without obvious evidence of pulmonary thromboembolic disease. There was evidence to suggest CHF and patchy ground-glass changes throughout both lung zepeda suggesting interstitial edema with a possible superimposed pneumonia. Mildly enlarged mediastinal hilar lymph nodes were seen along with small bilateral pleural effusions. The patient was seen by Dr. Elise in consultation and he states that Tariq Salazar follows patient in the practice on a routine basis. Last evening while on BiPAP apparently when he saw her, she was difficult to arouse. Her daughter who was in attendance stated that her dyspnea and cough had continued to progress over the past 6 days prior to admission. She was found to be hypoxic in the ER, started on BIPAP with O2 supplementation and diuresed as well as started on antibiotics. He notes a cardiac catheterization in 2003 showed a 30% proximal LAD, otherwise normal coronaries that was well over 14 years ago. She has been on chronic Coumadin therapy and is also prone to paroxysmal bouts of supraventricular tachycardia. She denies chest pain to me or tobacco history. 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 Most recent echo shows normal LVEF with a left bundle and an abnormal septal wall motion consistent with that left bundle branch block pattern. Diastolic dysfunction was suggested. Mild mitral regurgitation was seen. For details of past medical history, medications, family and social history, I refer you to current and past record. PHYSICAL EXAMINATION: GENERAL: Reveals an elderly white female appearing mildly confused but able to converse with me exhibiting no signs of respiratory distress. VITAL SIGNS: Temperature 36.6, pulse 108 and regular, respiratory rate 18, blood pressure 124/76, O2 sat 93% on 4 liters via nasal cannula, currently not on BiPAP therapy. SKIN: Without lesion. HEENT: Atraumatic, normocephalic. PERRLA, EOMI. Conjunctivae pale. Sclerae nonicteric. Fundi poorly visualized. NECK: Veins not distended at 45 degrees. No obvious adenopathy in the supra or infraclavicular areas. LUNGS: Coarse wheezes are audible with bibasilar rales. CARDIAC: Irregular, irregular rhythm, rate in the low 100s. I do not appreciate a gallop. ABDOMEN: Soft, protuberant. EXTREMITIES: Trace to +1 pitting edema. NEUROLOGICAL: Cranial nerves II-XII grossly intact. No lateralizing signs. Seems to be oriented x2 CT scan of the chest was reviewed and perfectly consistent with CHF with patchy ground-glass opacities and interstitial edema bilaterally. Cannot of course rule out superimposed infection. LABORATORY DATA: Blood cultures are pending. White count today of 14,000, H&H 9.9 and 32.6. ABGs: Today, pH 7.40, pCO2 of 44, pO2 78. BUN 31, creatinine 0.9. PT/INR 2.3. PCR for influenza A and B antigen negative. OVERALL ASSESSMENT: An 86-year-old white female with nonobstructive coronary disease, hypertensive cardiovascular disease with diastolic dysfunction, admitted with acute hypoxic respiratory failure, now markedly improved. She has been placed on IV methylprednisolone, kept on her Lopressor and started on IV doxycycline. She is well anticoagulated. She is receiving aerosolized bronchodilator. I cannot see that she is on a daily diuretic, but I feel the CT scan on admission was compatible with fluid overload and I believe she should be diuresed. I suspect a superimposed upper respiratory infection triggered her further compromise, but she most definitely appears clinically improved from what was described to me over the past 24 hours. I will leave that to cardiology to determine how aggressively to diurese the patient, but I certainly would reinstitute her diuretic therapy. She has gained approximately 2.1 kilograms since her admission and I would be concerned about worsening congestive heart failure as well. Will follow along with you. Thank you very much for this consultation.
[2017-07-26] VITALS (9 sets, daily range): BP systolic 116–134; BP diastolic 72–89; PULSE 69–112; TEMP 36.3–36.7; O2SAT 90–96
[2017-07-26] MEDS: IPRATROPIUM BROMIDE NEB SOLN 0.02% 2.5 ML VIAL INH SCH ×4 (01:59→19:33)
[2017-07-26] MEDS: LEVALBUTEROL 1.25MG/0.5ML NEB INH SCH ×4 (01:59→19:34)
[2017-07-26] MEDS: DOXYCYCLINE IV 100 MG in DEXTROSE 5% 100ML 100 ML IV SCH (06:07)
[2017-07-26 07:38] LABS: BASO % 0.1 %; BASO ABS # 0.01 K/uL (0-0.2); HEMATOCRIT 32.4 % (37-47); IG# 0.03 K/uL (0.00-0.02); LYMPH % 4.8 %; LYMPH ABS # 0.52 K/uL (1.2-3.4); MEAN CELL VOLUME 85.3 fL (80-100); MEAN CORPUSCULAR HEMOGLOBIN 26.3 pg (25-34); MEAN CORPUSCULAR HGB CONC 30.9 g/dl (32-36); MEAN PLATELET VOLUME 10.7 fL (7.4-10.4); MONO ABS # 0.65 K/uL (0.11-0.59); NEUT % 88.8 %; NEUT ABS # 9.58 K/uL (1.4-6.5); PLATELET COUNT 126 K/uL (130-400); RED CELL DISTRIBUTION WIDTH CV 17.4 % (11.5-14.5); RED CELL DISTRIBUTION WIDTH SD 54.2 fL (36.4-46.3); WHITE BLOOD COUNT 10.79 K/uL (4.8-10.8)
[2017-07-26] MEDS: ASPIRIN 81 MG ECTAB PO SCH (07:50)
[2017-07-26] MEDS: GUAIFENESIN 600 MG TABCR PO SCH ×2 (07:50→20:25)
[2017-07-26] MEDS: ESCITALOPRAM OXALATE 10 MG TAB PO SCH (07:50)
[2017-07-26] MEDS: METOPROLOL TARTRATE 50 MG TAB PO SCH ×2 (07:50→20:25)
[2017-07-26 08:03] LABS: INR 3.9 (0.9-1.1)
[2017-07-26 08:07] LABS: CALCIUM 8.9 mg/dl (8.5-10.1); CREATININE 0.83 mg/dl (0.60-1.20); POTASSIUM 3.6 mmol/L (3.5-5.1)
[2017-07-26] MEDS ORDERED: FUROSEMIDE 40 MG TAB PO ONE (09:30)
[2017-07-26] MEDS ORDERED: POTASSIUM CHLORIDE 20 MEQ TABCR PO ONE (09:30)
[2017-07-26] MEDS ORDERED: FUROSEMIDE 20 MG TAB PO ONE (12:00)
--- NOTE | 2017-07-26 15:22 | Cardiology Follow-Up ---
Subjective Subjective Date of Service: Jul 25, 2017. Pt evaluation today including: conversation w/ patient, conversation w/ family , physical exam, chart review, lab review, review of studies, review of inpatient medication list Additional Details: Late entry for 07/25/17. Pt seen and examined with daughter at bedside, patient appears markedly improved compared to yesterday. Off bipap, breathing comfortably on NC and conversing freely. States sob is significantly improved but not back to baseline , denies cp, palpitations, lightheadedness or dizziness. Tele reviewed: atrial fibrillation variable rates. Problem List Medical Problems: (1) Cervical strain Status: Acute (2) Closed traumatic displaced supracondylar fracture of humerus Status: Acute (3) Congestive heart failure Status: Acute (4) Dehydration Status: Acute (5) Fall Status: Acute (6) Fall Status: Acute (7) Fall Status: Acute (8) Fall Status: Acute (9) Head injury Status: Acute (10) Hypoxia Status: Acute (11) Laceration of lower extremity Status: Acute (12) Pneumonia Status: Acute (13) Scalp hematoma Status: Acute (14) Skin tear Status: Acute Review of Systems Respiratory: + shortness of breath, + dyspnea on exertion, No see HPI, No cough , No sputum, No wheezing, No dyspnea at rest, No hemoptysis, No problem reported Cardiac: No see HPI, No chest pain, No orthopnea, No PND, No edema, No claudication, No palpitations, No problem reported Objective Vital Signs Last Vital Signs Documentation Date Time Temp Pulse Resp B/P (MAP) Pulse Ox O2 Delivery O2 Flow Rate FiO2 07/26/17 14:44 69 18 96 Nasal Cannula 4.0 07/26/17 11:40 36.6 116/72 (87) 07/24/17 21:59 40 Physical Exam: General Appearance: WD/WN, no apparent distress Eyes: bilateral eyes normal inspection, bilateral eyes PERRL, bilateral eyes EOMI ENT: normal ENT inspection, hearing grossly normal, pharynx normal Neck: supple, no adenopathy, thyroid normal, no JVD, no carotid bruits, trachea midline Respiratory/Chest: chest non-tender, no respiratory distress, no accessory muscle use, + rhonchi (diffusely) Cardiovascular: + irregularly irregular (distant) Abdomen: normal bowel sounds, non tender, soft, no organomegaly, no pulsatile mass Extremities: normal inspection, no pedal edema, no calf tenderness 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 hypoxic respiratory failure greatly improved received single dose of lasix without significant change, doubt that volume overload is the nitus for this event will change lasix to po to maintain fluid balance and follow clinically 2. afib persistent rates relatively well controlled, would allow higher rates at this time to compensate for respiratory issues cont coumadin, goal INR of 2-3 cont tele monitor
--- NOTE | 2017-07-26 15:26 | Cardiology Follow-Up ---
Subjective Subjective Date of Service: Jul 26, 2017. Pt evaluation today including: conversation w/ patient, conversation w/ family , physical exam, chart review, lab review, review of studies, review of inpatient medication list Additional Details: Pt seen and examined oob in chair with daughter at bedside. States that no significant improvements from yesterday. Breathing remains somewhat labored but still significantly improved from presentation. Tele reviewed; atrial fibrillation, variable rates. Problem List Medical Problems: (1) Cervical strain Status: Acute (2) Closed traumatic displaced supracondylar fracture of humerus Status: Acute (3) Congestive heart failure Status: Acute (4) Dehydration Status: Acute (5) Fall Status: Acute (6) Fall Status: Acute (7) Fall Status: Acute (8) Fall Status: Acute (9) Head injury Status: Acute (10) Hypoxia Status: Acute (11) Laceration of lower extremity Status: Acute (12) Pneumonia Status: Acute (13) Scalp hematoma Status: Acute (14) Skin tear Status: Acute Review of Systems Respiratory: + shortness of breath, + dyspnea on exertion, No see HPI, No cough , No sputum, No wheezing, No dyspnea at rest, No hemoptysis, No problem reported Cardiac: No see HPI, No chest pain, No orthopnea, No PND, No edema, No claudication, No palpitations, No problem reported Objective Vital Signs Last Vital Signs Documentation Date Time Temp Pulse Resp B/P (MAP) Pulse Ox O2 Delivery O2 Flow Rate FiO2 07/26/17 14:44 69 18 96 Nasal Cannula 4.0 07/26/17 11:40 36.6 116/72 (87) 07/24/17 21:59 40 Physical Exam: General Appearance: WD/WN, no apparent distress Eyes: bilateral eyes normal inspection, bilateral eyes PERRL, bilateral eyes EOMI ENT: normal ENT inspection, hearing grossly normal, pharynx normal Neck: supple, no adenopathy, thyroid normal, no JVD, no carotid bruits, trachea midline Respiratory/Chest: chest non-tender, no respiratory distress, no accessory muscle use, + rhonchi (diffusely) Cardiovascular: + irregularly irregular (distant) Abdomen: normal bowel sounds, non tender, soft, no organomegaly, no pulsatile mass Extremities: normal inspection, no pedal edema, no calf tenderness 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 hypoxic respiratory failure greatly improved received single dose of lasix without significant change, doubt that volume overload is the nitus for this event will change lasix to po to maintain fluid balance and follow clinically 2. afib persistent rates relatively well controlled, would allow higher rates at this time to compensate for respiratory issues cont coumadin, goal INR of 2-3 cont tele monitor
--- NOTE | 2017-07-26 20:24 | Progress Note ---
Medicine Progress Note Date & Time of Visit: Jul 26, 2017 at 10:18. Subjective Pt was seen and examined Sitting in the chair with no distress eating Lunch She said that her breathing feels much better Denies any chest pain, palpitation, dizziness and SOB Objective Last 8 Hrs Date Time Temp Pulse Resp B/P (MAP) Pulse Ox O2 Delivery O2 Flow Rate FiO2 07/26/17 19:36 108 18 93 Nasal Cannula 2.0 07/26/17 19:06 36.3 102 20 120/75 (90) 92 2.0 07/26/17 16:00 Nasal Cannula 4.0 07/26/17 15:27 36.7 101 28 134/81 (98) 92 Nasal Cannula 2.0 07/26/17 14:44 69 18 96 Nasal Cannula 4.0 Physical Exam: General- obtunded Head- atraumatic Eyes- PERRL ENT- BIPAP mask on Neck- supple, no JVD Lungs- +rhonchi Heart- irregular rhythm Abdomen- normal bowel sounds Extremities- no calf tenderness Neuro- obtunded Skin- warm & dry Laboratory Results: Last 24 Hours Test 07/26/17 07:22 White Blood Count 10.79 K/uL Red Blood Count 3.80 M/uL Hemoglobin 10.0 g/dL Hematocrit 32.4 % Mean Corpuscular Volume 85.3 fL Mean Corpuscular Hemoglobin 26.3 pg Mean Corpuscular Hemoglobin Concent 30.9 g/dl Platelet Count 126 K/uL Mean Platelet Volume 10.7 fL Neutrophils (%) (Auto) 88.8 % Lymphocytes (%) (Auto) 4.8 % Monocytes (%) (Auto) 6.0 % Eosinophils (%) (Auto) 0.0 % Basophils (%) (Auto) 0.1 % Neutrophils # (Auto) 9.58 K/uL Lymphocytes # (Auto) 0.52 K/uL Monocytes # (Auto) 0.65 K/uL Eosinophils # (Auto) 0.00 K/uL Basophils # (Auto) 0.01 K/uL RDW Standard Deviation 54.2 fL RDW Coefficient of Variation 17.4 % Immature Granulocyte % (Auto) 0.3 % Immature Granulocyte # (Auto) 0.03 K/uL Prothrombin Time 39.5 SECONDS Prothromb Time International Ratio 3.9 Sodium Level 139 mmol/L Potassium Level 3.6 mmol/L Chloride Level 103 mmol/L Carbon Dioxide Level 27 mmol/L Anion Gap 9.0 mmol/L Blood Urea Nitrogen 31 mg/dl Creatinine 0.83 mg/dl Est Creatinine Clear Calc Drug Dose 53.1 ml/min Estimated GFR () 73.0 Estimated GFR (Non- 63.0 BUN/Creatinine Ratio 36.8 Random Glucose 130 mg/dl Calcium Level 8.9 mg/dl Assessment & Plan Acute hypercapnia respiratory failure Multifactorial due CHF/bronchitis/pneumonia CXR showed cardiomegaly with evidence of congestive failure and bilateral airspace opacities CTA chest negative for PE. Patchy ground glass change throughout both lungs likely represents interstitial edema. ABG on admission showed respiratory acidosis Continue BIPAP intermittently and at bedtime Continue IV doxycycline, neb treatment and steroid Blood cx pending Procalcitonin wnl Hold narcotic for now pulmonary on board 07/26 Clinically improved Refused Bipap, last ABG showed no CO2 retention this morning blood cx no growth Influenza negative On doxy po solumedrol changed to prednisone Continue oxygen supplement will need a 2 step on discharge Acute Decompensated diastolic heart failure CXR showed cardiomegaly with evidence of congestive failure Received IV lasix Cardiology on board ECHO * Normal LV chamber size with mild concentric LVH. * Normal LV systolic function with abnormal septal wall motion consistent with LBBB pattern, otherwise, normal. EF 55-60%. * Diastolic dysfunction is present given left atrial enlargement. * The right ventricular cavity size is normal (basal dimension <4.2 cm in right ventricular apical 4-chamber view). The right ventricular systolic function is reduced as assessed by tricuspid annular plane systolic excursion ( TAPSE) (TAPSE <1.6 cm). * Aortic valve sclerosis mild, without significant aortic valvular stenosis. * Mild mitral regurgitation. * Trace tricuspid regurgitation. * Mild left atrial enlargement. CAD Troponin x3 sets negative Continue metoprolol and aspirin Atrial fibrillation Rate improved INR 3.9 Hold coumadin Continue monitor in tele HTN BP stable DVT px hold coumadin INR 3.9 CODE STATUS FULL CODE Consultants: Pulm cardio Current Inpatient Medications: Current Inpatient Medications Medications (Trade) Dose Ordered Sig/Michael Route Start Time Stop Time Status Last Admin Dose Admin Ioversol (Optiray 320) 125 ml UD PRN IV 07/24/17 00:30 07/28/17 00:29 Acetaminophen (Tylenol Tab) 650 mg Q4H PRN PO 07/24/17 03:30 08/23/17 03:29 Nitroglycerin (Nitrostat Tab) 0.4 mg UD PRN SL 07/24/17 03:30 08/23/17 03:29 Aspirin (Ecotrin Tab) 81 mg DAILY PO 07/24/17 09:00 08/23/17 08:59 Future hold 07/26/17 07:50 81 MG Escitalopram Oxalate (Lexapro Tab) 10 mg DAILY PO 07/24/17 09:00 08/23/17 08:59 Future hold 07/26/17 07:50 10 MG Pantoprazole Sodium (Protonix Tab) 40 mg QAM PO 07/24/17 09:00 08/23/17 08:59 Future Hold Morphine Sulfate (MoRPHine SULFATE INJ) 4 mg Q6H PRN IV 07/24/17 03:30 08/07/17 03:29 Future Hold 07/24/17 05:49 4 MG Prochlorperazine Edisylate 5 mg/ Syringe 5 ml @ 5 mls/min Q6H PRN IV 07/24/17 03:30 08/23/17 03:29 Warfarin Sodium (Coumadin Tab) 5 mg DAILY@16 PO 07/24/17 16:00 08/23/17 15:59 Future Hold 07/25/17 16:12 5 MG Oxycodone/ Acetaminophen (Percocet 5-325mg Tab) 1 tab Q6H PRN PO 07/24/17 03:30 08/07/17 03:29 Future Hold Ipratropium [place] (Atrovent 0.02% 0.5MG/2.5ML Neb) 0.5 mg Q6R INH 07/24/17 09:00 08/23/17 08:59 07/26/17 19:33 0.5 MG Levalbuterol (Xopenex 1.25MG/ 0.5ML Neb) 1.25 mg Q6R INH 07/24/17 09:00 08/23/17 08:59 07/26/17 19:34 1.25 MG Ipratropium [place] (Atrovent 0.02% 0.5MG/2.5ML Neb) 0.5 mg Q4H PRN INH 07/24/17 04:00 08/23/17 03:59 Levalbuterol (Xopenex 1.25MG/ 0.5ML Neb) 1.25 mg Q4H PRN INH 07/24/17 04:00 08/23/17 03:59 Metoprolol Tartrate (Lopressor Tab) 50 mg BID PO 07/25/17 09:00 08/23/17 20:59 07/26/17 07:50 50 MG Guaifenesin (Mucinex Contr Rel Tab) 600 mg Q12 PO 07/25/17 09:00 08/24/17 08:59 07/26/17 07:50 600 MG Doxycycline Hyclate (Vibramycin Cap) 100 mg BID PO 07/26/17 21:00 07/30/17 23:59 Furosemide (Lasix Tab) 20 mg QAM PO 07/27/17 09:00 08/26/17 08:59
[2017-07-26] MEDS: DOXYCYCLINE HYCLATE 100 MG CAP PO SCH (20:25)
[2017-07-27] VITALS (11 sets, daily range): BP systolic 120–164; BP diastolic 71–89; PULSE 77–112; TEMP 36.3–37.1; O2SAT 93–99
[2017-07-27] MEDS: LEVALBUTEROL 1.25MG/0.5ML NEB INH SCH ×4 (02:05→20:41)
[2017-07-27] MEDS: IPRATROPIUM BROMIDE NEB SOLN 0.02% 2.5 ML VIAL INH SCH ×4 (02:05→20:41)
[2017-07-27] MEDS: FUROSEMIDE 20 MG TAB PO SCH (07:36)
[2017-07-27] MEDS: ESCITALOPRAM OXALATE 10 MG TAB PO SCH (07:36)
[2017-07-27] MEDS: DOXYCYCLINE HYCLATE 100 MG CAP PO SCH ×2 (07:36→21:02)
[2017-07-27] MEDS: ASPIRIN 81 MG ECTAB PO SCH (07:36)
[2017-07-27] MEDS: GUAIFENESIN 600 MG TABCR PO SCH ×2 (07:36→21:02)
[2017-07-27] MEDS: METOPROLOL TARTRATE 50 MG TAB PO SCH ×2 (07:37→21:03)
[2017-07-27 08:16] LABS: BASO % 0.2 %; BASO ABS # 0.02 K/uL (0-0.2); EOS % 0.4 %; EOS ABS # 0.04 K/uL (0-0.5); HEMATOCRIT 35.3 % (37-47); HEMOGLOBIN 10.7 g/dL (12.0-16.0); IG# 0.02 K/uL (0.00-0.02); LYMPH % 11.3 %; LYMPH ABS # 1.04 K/uL (1.2-3.4); MEAN CELL VOLUME 86.9 fL (80-100); MEAN CORPUSCULAR HEMOGLOBIN 26.4 pg (25-34); MEAN CORPUSCULAR HGB CONC 30.3 g/dl (32-36); MEAN PLATELET VOLUME 10.5 fL (7.4-10.4); MONO % 7.4 %; MONO ABS # 0.68 K/uL (0.11-0.59); NEUT % 80.5 %; PLATELET COUNT 134 K/uL (130-400); RED CELL DISTRIBUTION WIDTH CV 17.8 % (11.5-14.5); RED CELL DISTRIBUTION WIDTH SD 56.3 fL (36.4-46.3)
[2017-07-27 08:26] LABS: INR 3.3 (0.9-1.1)
[2017-07-27 08:52] LABS: CALCIUM 9.4 mg/dl (8.5-10.1); CREATININE 0.78 mg/dl (0.60-1.20); POTASSIUM 3.4 mmol/L (3.5-5.1)
[2017-07-27] MEDS ORDERED: POTASSIUM CHLORIDE PWD 20 MEQ PACK PO ONE (09:45)
--- NOTE | 2017-07-27 10:52 | Progress Note ---
Medicine Progress Note Date & Time of Visit: Jul 27, 2017 at 10:44. Subjective Pt was seen and examined Lying in bed with no distress Pt said that she feels better Continue to have a productive cough Denies any fever, palpitation, dizziness and chest pain Objective Last 8 Hrs Date Time Temp Pulse Resp B/P (MAP) Pulse Ox O2 Delivery O2 Flow Rate FiO2 07/27/17 08:00 Nasal Cannula 2.0 07/27/17 07:31 77 18 98 Nasal Cannula 4.0 07/27/17 06:52 36.6 95 18 164/89 (114) 97 Nasal Cannula 4.0 07/27/17 05:10 36.6 98 20 135/79 (97) 99 4.0 07/27/17 04:00 Nasal Cannula 2.0 Physical Exam: General- No acute distress Head- atraumatic Eyes- PERRL ENT- BIPAP mask on Neck- supple, no JVD Lungs- Coarse BS Heart- irregular rhythm Abdomen- normal bowel sounds Extremities- no calf tenderness Neuro- Alert, awake and oriented, move all extremities, speech fluent Skin- warm & dry Laboratory Results: Last 24 Hours Test 07/27/17 08:04 White Blood Count 9.20 K/uL Red Blood Count 4.06 M/uL Hemoglobin 10.7 g/dL Hematocrit 35.3 % Mean Corpuscular Volume 86.9 fL Mean Corpuscular Hemoglobin 26.4 pg Mean Corpuscular Hemoglobin Concent 30.3 g/dl Platelet Count 134 K/uL Mean Platelet Volume 10.5 fL Neutrophils (%) (Auto) 80.5 % Lymphocytes (%) (Auto) 11.3 % Monocytes (%) (Auto) 7.4 % Eosinophils (%) (Auto) 0.4 % Basophils (%) (Auto) 0.2 % Neutrophils # (Auto) 7.40 K/uL Lymphocytes # (Auto) 1.04 K/uL Monocytes # (Auto) 0.68 K/uL Eosinophils # (Auto) 0.04 K/uL Basophils # (Auto) 0.02 K/uL RDW Standard Deviation 56.3 fL RDW Coefficient of Variation 17.8 % Immature Granulocyte % (Auto) 0.2 % Immature Granulocyte # (Auto) 0.02 K/uL Prothrombin Time 33.7 SECONDS Prothromb Time International Ratio 3.3 Sodium Level 141 mmol/L Potassium Level 3.4 mmol/L Chloride Level 105 mmol/L Carbon Dioxide Level 28 mmol/L Anion Gap 8.0 mmol/L Blood Urea Nitrogen 36 mg/dl Creatinine 0.78 mg/dl Est Creatinine Clear Calc Drug Dose 56.1 ml/min Estimated GFR () 78.7 Estimated GFR (Non- 67.9 BUN/Creatinine Ratio 46.1 Random Glucose 90 mg/dl Calcium Level 9.4 mg/dl Assessment & Plan Acute hypercapnia respiratory failure Multifactorial due CHF/bronchitis CXR showed cardiomegaly with evidence of congestive failure and bilateral airspace opacities CTA chest negative for PE. Patchy ground glass change throughout both lungs likely represents interstitial edema. ABG on admission showed respiratory acidosis Continue BIPAP intermittently and at bedtime Continue IV doxycycline, neb treatment and steroid Blood cx pending Procalcitonin wnl Hold narcotic for now Refused Bipap, last ABG showed no CO2 retention this morning pulmonary on board 07/27 Clinically improved blood cx no growth Influenza negative Continue doxy po Continue prednisone Continue oxygen supplement will need a 2 step on discharge Acute Decompensated diastolic heart failure CXR showed cardiomegaly with evidence of congestive failure Cardiology on board case discussed with Cardiology recommended to continue Lasix 20mg daily Lasix can be titrated if needed Follow up with cardiology between 3 to 4 weeks ECHO * Normal LV chamber size with mild concentric LVH. * Normal LV systolic function with abnormal septal wall motion consistent with LBBB pattern, otherwise, normal. EF 55-60%. * Diastolic dysfunction is present given left atrial enlargement. * The right ventricular cavity size is normal (basal dimension <4.2 cm in right ventricular apical 4-chamber view). The right ventricular systolic function is reduced as assessed by tricuspid annular plane systolic excursion ( TAPSE) (TAPSE <1.6 cm). * Aortic valve sclerosis mild, without significant aortic valvular stenosis. * Mild mitral regurgitation. * Trace tricuspid regurgitation. * Mild left atrial enlargement. Hypokalemia K 3.4 K replaced CAD Troponin x3 sets negative Continue metoprolol and aspirin Atrial fibrillation Rate improved INR 3.3 will resume coumadin Continue monitor in tele follow up with the [facility] HTN BP stable DVT px resume coumadin INR 3.3 CODE STATUS FULL CODE Disposition Follow up appointment with dr. Toussaint on 08/03 @ 11:05AM Follow up with cardiology between 3- 4 weeks [facility] up with [facility] Will need a 2 step on discharge Will discharge once medically stable Consultants: Pulm cardio Current Inpatient Medications: Current Inpatient Medications Medications (Trade) Dose Ordered Sig/Michael Route Start Time Stop Time Status Last Admin Dose Admin Ioversol (Optiray 320) 125 ml UD PRN IV 07/24/17 00:30 07/28/17 00:29 Acetaminophen (Tylenol Tab) 650 mg Q4H PRN PO 07/24/17 03:30 08/23/17 03:29 Nitroglycerin (Nitrostat Tab) 0.4 mg UD PRN SL 07/24/17 03:30 08/23/17 03:29 Aspirin (Ecotrin Tab) 81 mg DAILY PO 07/24/17 09:00 08/23/17 08:59 Future hold 07/27/17 07:36 81 MG Escitalopram Oxalate (Lexapro Tab) 10 mg DAILY PO 07/24/17 09:00 08/23/17 08:59 Future hold 07/27/17 07:36 10 MG Pantoprazole Sodium (Protonix Tab) 40 mg QAM PO 07/24/17 09:00 08/23/17 08:59 Future Hold Morphine Sulfate (MoRPHine SULFATE INJ) 4 mg Q6H PRN IV 07/24/17 03:30 08/07/17 03:29 Future Hold 07/24/17 05:49 4 MG Prochlorperazine Edisylate 5 mg/ Syringe 5 ml @ 5 mls/min Q6H PRN IV 07/24/17 03:30 08/23/17 03:29 Warfarin Sodium (Coumadin Tab) 5 mg DAILY@16 PO 07/24/17 16:00 08/23/17 15:59 Future Hold 07/25/17 16:12 5 MG Oxycodone/ Acetaminophen (Percocet 5-325mg Tab) 1 tab Q6H PRN PO 07/24/17 03:30 08/07/17 03:29 Future Hold Ipratropium [place] (Atrovent 0.02% 0.5MG/2.5ML Neb) 0.5 mg Q6R INH 07/24/17 09:00 08/23/17 08:59 07/27/17 07:29 0.5 MG Levalbuterol (Xopenex 1.25MG/ 0.5ML Neb) 1.25 mg Q6R INH 07/24/17 09:00 08/23/17 08:59 07/27/17 07:29 1.25 MG Ipratropium [place] (Atrovent 0.02% 0.5MG/2.5ML Neb) 0.5 mg Q4H PRN INH 07/24/17 04:00 08/23/17 03:59 Levalbuterol (Xopenex 1.25MG/ 0.5ML Neb) 1.25 mg Q4H PRN INH 07/24/17 04:00 08/23/17 03:59 Metoprolol Tartrate (Lopressor Tab) 50 mg BID PO 07/25/17 09:00 08/23/17 20:59 07/27/17 07:37 50 MG Guaifenesin (Mucinex Contr Rel Tab) 600 mg Q12 PO 07/25/17 09:00 08/24/17 08:59 07/27/17 07:36 600 MG Doxycycline Hyclate (Vibramycin Cap) 100 mg BID PO 07/26/17 21:00 07/30/17 23:59 07/27/17 07:36 100 MG Furosemide (Lasix Tab) 20 mg QAM PO 07/27/17 09:00 08/26/17 08:59 07/27/17 07:36 20 MG
--- NOTE | 2017-07-27 11:34 | Cardiology Follow-Up ---
Subjective Subjective Date of Service: Jul 27, 2017. Pt evaluation today including: conversation w/ patient, physical exam, chart review, lab review, review of studies, review of inpatient medication list Additional Details: Pt seen and examined, states that she feels well but does not believe that she is ready for discharge yet. SOB improving. Denies cp, palpitations, lightheadedness or dizziness. Tele reviewed: afib rate controlled Problem List Medical Problems: (1) Cervical strain Status: Acute (2) Closed traumatic displaced supracondylar fracture of humerus Status: Acute (3) Congestive heart failure Status: Acute (4) Dehydration Status: Acute (5) Fall Status: Acute (6) Fall Status: Acute (7) Fall Status: Acute (8) Fall Status: Acute (9) Head injury Status: Acute (10) Hypoxia Status: Acute (11) Laceration of lower extremity Status: Acute (12) Pneumonia Status: Acute (13) Scalp hematoma Status: Acute (14) Skin tear Status: Acute Review of Systems Respiratory: + shortness of breath, + dyspnea on exertion, No see HPI, No cough , No sputum, No wheezing, No dyspnea at rest, No hemoptysis, No problem reported Cardiac: No see HPI, No chest pain, No orthopnea, No PND, No edema, No claudication, No palpitations, No problem reported Objective Vital Signs Last Vital Signs Documentation Date Time Temp Pulse Resp B/P (MAP) Pulse Ox O2 Delivery O2 Flow Rate FiO2 07/27/17 08:00 Nasal Cannula 2.0 07/27/17 07:31 77 18 98 07/27/17 06:52 36.6 164/89 (114) 07/24/17 21:59 40 Physical Exam: General Appearance: WD/WN, no apparent distress Eyes: bilateral eyes normal inspection, bilateral eyes PERRL, bilateral eyes EOMI ENT: normal ENT inspection, hearing grossly normal, pharynx normal Neck: supple, no adenopathy, thyroid normal, no JVD, no carotid bruits, trachea midline Respiratory/Chest: chest non-tender, no respiratory distress, no accessory muscle use, + rhonchi (diffusely) Cardiovascular: + irregularly irregular (distant) Abdomen: normal bowel sounds, non tender, soft, no organomegaly, no pulsatile mass Extremities: normal inspection, no pedal edema, no calf tenderness Neurologic/Psychiatric: ceo and president II-XII nml as tested, no motor/sensory deficits, alert, normal mood/affect, oriented x 3 Skin: normal color, warm/dry, no rash Lymphatic: no adenopathy Assessment and Plan 1. hypoxic respiratory failure greatly improved received single dose of lasix without significant change, doubt that volume overload is the nitus for this event will change lasix to po to maintain fluid balance and follow clinically 2. afib persistent rates relatively well controlled, would allow higher rates at this time to compensate for respiratory issues cont coumadin, goal INR of 2-3 3. diastolic dysfunction will maintain of lasix 20mg po daily to prevent overload f/u with Tariq Salazar PA-C in 1 month (my office will call to arrange) ok to d/c tele from cardiac standpoint.
[2017-07-27] MEDS ORDERED: WARFARIN SOD 3 MG TAB PO SCH (16:00)
[2017-07-28] VITALS (13 sets, daily range): BP systolic 118–161; BP diastolic 67–91; PULSE 74–107; TEMP 36.2–36.8; O2SAT 94–99
[2017-07-28] MEDS: LEVALBUTEROL 1.25MG/0.5ML NEB INH SCH ×4 (02:11→19:25)
[2017-07-28] MEDS: IPRATROPIUM BROMIDE NEB SOLN 0.02% 2.5 ML VIAL INH SCH ×4 (02:11→19:25)
[2017-07-28] MEDS: FUROSEMIDE 20 MG TAB PO SCH (07:40)
[2017-07-28] MEDS: METOPROLOL TARTRATE 50 MG TAB PO SCH ×2 (07:41→20:06)
[2017-07-28] MEDS: ASPIRIN 81 MG ECTAB PO SCH (07:41)
[2017-07-28] MEDS: GUAIFENESIN 600 MG TABCR PO SCH ×2 (07:41→20:06)
[2017-07-28] MEDS: ESCITALOPRAM OXALATE 10 MG TAB PO SCH (07:41)
[2017-07-28] MEDS: DOXYCYCLINE HYCLATE 100 MG CAP PO SCH ×2 (07:41→20:06)
[2017-07-28 08:30] LABS: BASO % 0.1 %; BASO ABS # 0.01 K/uL (0-0.2); EOS % 0.1 %; EOS ABS # 0.01 K/uL (0-0.5); HEMATOCRIT 35.6 % (37-47); HEMOGLOBIN 10.7 g/dL (12.0-16.0); IG# 0.03 K/uL (0.00-0.02); LYMPH % 13.3 %; LYMPH ABS # 1.03 K/uL (1.2-3.4); MEAN CELL VOLUME 86.2 fL (80-100); MEAN CORPUSCULAR HEMOGLOBIN 25.9 pg (25-34); MEAN CORPUSCULAR HGB CONC 30.1 g/dl (32-36); MEAN PLATELET VOLUME 10.7 fL (7.4-10.4); MONO % 10.3 %; NEUT % 75.8 %; NEUT ABS # 5.86 K/uL (1.4-6.5); PLATELET COUNT 146 K/uL (130-400); RED CELL DISTRIBUTION WIDTH CV 17.3 % (11.5-14.5); RED CELL DISTRIBUTION WIDTH SD 54.7 fL (36.4-46.3); WHITE BLOOD COUNT 7.74 K/uL (4.8-10.8)
[2017-07-28 08:50] LABS: INR 3.7 (0.9-1.1)
[2017-07-28 08:57] LABS: CALCIUM 9.4 mg/dl (8.5-10.1); CREATININE 0.71 mg/dl (0.60-1.20); POTASSIUM 3.9 mmol/L (3.5-5.1)
--- NOTE | 2017-07-28 09:24 | Clinical Documentation Query ---
CLINICAL DOCUMENTATION QUERY Dr. PATINO, In your clinical opinion is this patient being managed for: ( x ) Chronic kidney disease, stage 3 ( ) Not Agree ( ) Other explanation of clinical findings (Please Explain) ( ) Unable to determine (Please Define) ( ) Need to Discuss The medical record reflects the following clinical findings, treatment, and risk factors. Clinical Indicators: 86 yo female presenting with acute diastolic CHF. Review of historical GFR reveals a range of 45.1-76 over the past 2 years Treatment: monitor PRP's, treat comorbid conditions Risk Factors: age, HTN, A fib, CAD Please clarify and document your clinical opinion in the progress notes and discharge summary. Terms such as "probable", "suspected", "likely", "questionable", "possible", or "still to be ruled out" are acceptable. IF IN AGREEMENT, YOU MUST DOCUMENT ABOVE DIAGNOSTIC STATEMENT IN DAILY PROGRESS NOTES AND DISCHARGE SUMMARY. This document is not part of the patient's record. Thank You, Michelle Carter, EMIL [phone]
--- NOTE | 2017-07-28 17:57 | Pulmonology Progress Note ---
Pulmonary Progress Note Date of Service Jul 28, 2017. Attending Dr. Bernal Subjective Follow-up note on Mrs. Cooper. Patient seen and examined and consult dictated by Dr. Frank on 07/25/17. Patient presented with hypoxia and was found to have significant fluid overload. She was given Lasix and had some output but seemed to improve. She continued required 2 L of supplemental oxygen by nasal cannula. She has no chest pain or tightness. No cough. She is no sputum production. She denies hemoptysis. She has never use supplemental oxygen in the past at home. She does report that she has had increasing difficulty with ambulation but can still walk on a flat surface for 30 or 40 feet before becoming fatigued. She has had approximate five falls over the past year. One of which resulted in a left humerus fracture which was her dominant hand. Since that time she has not successfully been able to acclimate and does not use the left side often. She does do jigsaw puzzles but no longer does word findings or crossword puzzles. She does go to [employer] on Sundays and can walk [facility] [place] again is 40-60 feet before resting. Other than that she is basically homebound. She has family that lives with her and does shopping and helps with cleaning and cooking. Today the patient states that she is in no acute distress. She has no cough. She denies fever. She has no chest pain. She has no pleuritic pain. She states that she believes she is going to [facility] on discharge from the hospital. Objective GENERAL : No acute distress. Sitting in bedside chair EYES: No icterus, gaze conjugate NOSE: No evidence of epistaxis. Nasal cannula in place at 2 L/m MOUTH: No lesions or candidiasis NECK: Supple LUNGS: Faint wheezes in the mid lung zepeda. Some bibasilar crackles. No rhonchi. HEART: Regular, rate controlled ABDOMEN: Soft, NT, ND, BS Present EXTREMITIES: No LE edema, pedal pulses intact NEURO: A&OX3 Assessment & Plan HYPOXEMIA * Greatly improved but continues to require 2 L/m via nasal cannula * Initial impression per Dr. Frank was fluid overload * Some response to Lasix but not significant * Continue with diuresis per cardiology * Patient does have history of diastolic dysfunction and will follow with cardiology on discharge * Unclear of atrial fibrillation played a part in this as patient is currently rate controlled * CT chest was negative for pulmonary emboli. There was evidence of groundglass opacities representing interstitial edema as well as very small pleural effusions. * Continue to follow supportively. Titrate supplemental O2 as tolerated * Anticipated this point the patient may need supplemental O2 on discharge and will follow in the outpatient clinic * With discharge on prednisone taper over 10-14 days. Continue duo neb treatments with leave albuterol and ipratropium DVT PROPHYLAXIS * Chemical anticoagulation with Coumadin - INR therapeutic * TEDs/SCDs * Ambulate as tolerated Thank you for including us in the care of this patient. We will sign off at this time. Please feel free to reconsult as necessary Data Medications: Current Inpatient Medications Medications (Trade) Dose Ordered Sig/Michael Route Start Time Stop Time Status Last Admin Dose Admin Acetaminophen (Tylenol Tab) 650 mg Q4H PRN PO 07/24/17 03:30 08/23/17 03:29 Nitroglycerin (Nitrostat Tab) 0.4 mg UD PRN SL 07/24/17 03:30 08/23/17 03:29 Aspirin (Ecotrin Tab) 81 mg DAILY PO 07/24/17 09:00 08/23/17 08:59 Future hold 07/28/17 07:41 81 MG Escitalopram Oxalate (Lexapro Tab) 10 mg DAILY PO 07/24/17 09:00 08/23/17 08:59 Future hold 07/28/17 07:41 10 MG Pantoprazole Sodium (Protonix Tab) 40 mg QAM PO 07/24/17 09:00 08/23/17 08:59 Future Hold Morphine Sulfate (MoRPHine SULFATE INJ) 4 mg Q6H PRN IV 07/24/17 03:30 08/07/17 03:29 Future Hold 07/24/17 05:49 4 MG Prochlorperazine Edisylate 5 mg/ Syringe 5 ml @ 5 mls/min Q6H PRN IV 07/24/17 03:30 08/23/17 03:29 Oxycodone/ Acetaminophen (Percocet 5-325mg Tab) 1 tab Q6H PRN PO 07/24/17 03:30 08/07/17 03:29 Future Hold Ipratropium [place] (Atrovent 0.02% 0.5MG/2.5ML Neb) 0.5 mg Q6R INH 07/24/17 09:00 08/23/17 08:59 07/28/17 14:28 0.5 MG Levalbuterol (Xopenex 1.25MG/ 0.5ML Neb) 1.25 mg Q6R INH 07/24/17 09:00 08/23/17 08:59 07/28/17 14:28 1.25 MG Ipratropium [place] (Atrovent 0.02% 0.5MG/2.5ML Neb) 0.5 mg Q4H PRN INH 07/24/17 04:00 08/23/17 03:59 Levalbuterol (Xopenex 1.25MG/ 0.5ML Neb) 1.25 mg Q4H PRN INH 07/24/17 04:00 08/23/17 03:59 Metoprolol Tartrate (Lopressor Tab) 50 mg BID PO 07/25/17 09:00 08/23/17 20:59 07/28/17 07:41 50 MG Guaifenesin (Mucinex Contr Rel Tab) 600 mg Q12 PO 07/25/17 09:00 08/24/17 08:59 07/28/17 07:41 600 MG Doxycycline Hyclate (Vibramycin Cap) 100 mg BID PO 07/26/17 21:00 07/30/17 23:59 07/28/17 07:41 100 MG Furosemide (Lasix Tab) 20 mg QAM PO 07/27/17 09:00 08/26/17 08:59 07/28/17 07:40 20 MG Prednisone (PredniSONE TAB) 40 mg DAILY PO 07/28/17 09:00 08/27/17 08:59 07/28/17 07:41 40 MG Warfarin Sodium (Coumadin Tab) 3 mg DAILY@16 PO 07/27/17 16:00 08/23/17 15:59 Future Hold 07/27/17 15:45 3 MG I & O: 24-Hour Column 07/29/17 08:00 Intake Total 600 ml Output Total 1000 ml Balance -400 ml Vital Signs: Date Time Temp Pulse Resp B/P (MAP) Pulse Ox O2 Delivery O2 Flow Rate FiO2 07/28/17 16:30 96 Nasal Cannula 2.0 07/28/17 15:20 36.2 96 20 118/79 (92) 96 2.0 07/28/17 14:30 76 18 96 Nasal Cannula 2.0 07/28/17 13:53 94 07/28/17 12:00 Nasal Cannula 2.0 07/28/17 11:48 36.8 101 20 139/77 (97) 97 Room Air 07/28/17 08:00 Nasal Cannula 2.0 07/28/17 07:23 87 18 98 Nasal Cannula 3.0 07/28/17 07:09 36.5 83 18 161/91 (114) 99 Nasal Cannula 3.0 07/28/17 04:16 36.3 88 18 142/77 (98) 97 Nasal Cannula 2.0 07/28/17 04:00 Nasal Cannula 2.0 07/28/17 02:12 80 18 97 Nasal Cannula 3.0 07/28/17 00:00 Nasal Cannula 2.0 07/27/17 23:03 36.3 112 22 133/73 (93) 97 Nasal Cannula 3.0 07/27/17 20:45 84 18 97 Nasal Cannula 3.0 07/27/17 20:00 Nasal Cannula 2.0 07/27/17 19:48 36.7 98 20 129/71 (90) 97 Nasal Cannula 3.0 Laboratory Results: Last 24 Hours Test 07/28/17 08:16 White Blood Count 7.74 K/uL Red Blood Count 4.13 M/uL Hemoglobin 10.7 g/dL Hematocrit 35.6 % Mean Corpuscular Volume 86.2 fL Mean Corpuscular Hemoglobin 25.9 pg Mean Corpuscular Hemoglobin Concent 30.1 g/dl Platelet Count 146 K/uL Mean Platelet Volume 10.7 fL Neutrophils (%) (Auto) 75.8 % Lymphocytes (%) (Auto) 13.3 % Monocytes (%) (Auto) 10.3 % Eosinophils (%) (Auto) 0.1 % Basophils (%) (Auto) 0.1 % Neutrophils # (Auto) 5.86 K/uL Lymphocytes # (Auto) 1.03 K/uL Monocytes # (Auto) 0.80 K/uL Eosinophils # (Auto) 0.01 K/uL Basophils # (Auto) 0.01 K/uL RDW Standard Deviation 54.7 fL RDW Coefficient of Variation 17.3 % Immature Granulocyte % (Auto) 0.4 % Immature Granulocyte # (Auto) 0.03 K/uL Prothrombin Time 38.1 SECONDS Prothromb Time International Ratio 3.7 Sodium Level 139 mmol/L Potassium Level 3.9 mmol/L Chloride Level 103 mmol/L Carbon Dioxide Level 29 mmol/L Anion Gap 7.0 mmol/L Blood Urea Nitrogen 36 mg/dl Creatinine 0.71 mg/dl Est Creatinine Clear Calc Drug Dose 62.1 ml/min Estimated GFR () 88.1 Estimated GFR (Non- 76.0 BUN/Creatinine Ratio 50.9 Random Glucose 116 mg/dl Calcium Level 9.4 mg/dl
--- NOTE | 2017-07-28 21:49 | Progress Note ---
Medicine Progress Note Date & Time of Visit: Jul 28, 2017 at 17:12. Subjective pt feeling well and asymptomatic tolerating PO denies work of breathing. Objective Last 8 Hrs Date Time Temp Pulse Resp B/P (MAP) Pulse Ox O2 Delivery O2 Flow Rate FiO2 07/28/17 15:20 36.2 96 20 118/79 (92) 96 2.0 07/28/17 14:30 76 18 96 Nasal Cannula 2.0 07/28/17 13:53 94 07/28/17 12:00 Nasal Cannula 2.0 07/28/17 11:48 36.8 101 20 139/77 (97) 97 Room Air Physical Exam: GEN: WNWD, in no acute distress, alert and appropriate HEENT: NC/AT, PERRL, normal sclerae CARDIO: normal rate, irregular rhythm, S1/2 heard without m/g/r LUNGS: CTA bilaterally, some crackles at the bases bilaterally, no wheezing, good diaphragmatic excursion ABD: soft, non-tender, non-distended, no rebound or guarding, +BS EXTREMITY: RP and DP palpable 2+ bilat, no LE swelling or edema, extremities are warm and well-perfused NEURO: CN 2-12 grossly intact MUSC: 5/5 strength throughout, no gross focal deficits SKIN: warm and dry Laboratory Results: 07/28/17 08:16 Red Blood Count 4.13, Mean Corpuscular Volume 86.2, Mean Corpuscular Hemoglobin 25.9, Mean Corpuscular Hemoglobin Concent 30.1, Mean Platelet Volume 10.7, Neutrophils (%) (Auto) 75.8, Lymphocytes (%) (Auto) 13.3, Monocytes (%) (Auto) 10.3, Eosinophils (%) (Auto) 0.1, Basophils (%) (Auto) 0.1, Neutrophils # (Auto ) 5.86, Lymphocytes # (Auto) 1.03, Monocytes # (Auto) 0.80, Eosinophils # (Auto ) 0.01, Basophils # (Auto) 0.01 07/28/17 08:16 Test 07/23/17 23:00 07/23/17 23:25 07/24/17 01:11 07/24/17 02:20 Total Bilirubin 0.7 mg/dl (0.2-1) Aspartate Amino Transf (AST/SGOT) 22 U/L (15-37) Alanine Aminotransferase (ALT/SGPT) 22 U/L (12-78) Alkaline Phosphatase 84 U/L (45-117) Total Creatine Kinase 125 U/L (26-192) Creatine Kinase MB 2.4 ng/ml (0.5-3.6) Creatine Kinase MB Ratio 1.9 (0-3.0) Pro-B-Type Natriuretic Peptide 2962 pg/ml (0-1800) Total Protein 7.0 gm/dl (6.4-8.2) Albumin 3.4 gm/dl (3.4-5.0) Globulin 3.6 gm/dl (2.5-4.0) Albumin/Globulin Ratio 0.9 (0.9-2) Thyroid Stimulating Hormone (TSH) 1.270 uIu/ml (0.300-4.500) Influenza Type A Antigen Neg for Influ A (NEG) Influenza Type B Antigen Neg for Influ B (NEG) Activated Partial Thromboplast Time 30.6 SECONDS (21.0-31.0) Partial Thromboplastin Ratio 1.2 Influenza Type A (RT-PCR) Neg for Influ A (NEG) Influenza Type B (RT-PCR) Neg for Influ B (NEG) Test 07/24/17 05:46 07/24/17 05:47 07/24/17 06:08 07/24/17 06:30 Lactic Acid Level 1.2 mmol/L (0.4-2.0) Absolute Reticulocyte Count 0.08 10^6/uL (0.02-0.10) Percent Reticulocyte Count 1.8 % (0.5-2.0) Estimated Average Glucose 123 mg/dl Hemoglobin A1c 5.9 % (4.5-5.6) Iron Level 37 mcg/dl (35-150) Total Iron Binding Capacity 383 mcg/dl (250-450) Transferrin 299 mg/dl (200-360) Transferrin % Saturation 9 % (15-50) Ferritin 86.0 ng/ml (8.0-388.0) Vitamin B12 Level 446 pg/mL (211-911) Folate 19.66 ng/mL (>5.38) Procalcitonin 0.14 ng/ml (0-0.5) Bedside Glucose 165 mg/dl (70-90) Urine Color YELLOW Urine Appearance CLEAR (CLEAR) Urine pH 6.5 (4.5-7.5) Urine Specific [place] 1.016 (1.000-1.030) Urine Protein NEG (NEG) Urine Glucose (UA) NEG (NEG) Urine Ketones NEG (NEG) Urine Occult Blood 1+ (NEG) Urine Nitrite NEG (NEG) Urine Bilirubin NEG (NEG) Urine Urobilinogen NEG (NEG) Urine Leukocyte Esterase NEG (NEG) Urine WBC (Auto) 0 /hpf (0-5) Urine RBC (Auto) 5-10 /hpf (0-4) Urine Hyaline Casts (Auto) 0 /lpf (0-5) Urine Epithelial Cells (Auto) 5-10 /lpf (0-5) Urine Bacteria (Auto) NEG (NEG) Test 07/24/17 07:15 07/25/17 06:41 07/28/17 08:16 Magnesium Level 2.2 mg/dl (1.8-2.4) Troponin I < 0.015 ng/ml (0-0.045) Arterial Blood pH 7.40 (7.35-7.45) Arterial Blood Partial Pressure CO2 44 mmHg (35-46) Arterial Blood Partial Pressure O2 78 mm/Hg (80-95) Arterial Blood HCO3 27 mmol/L (19-24) Arterial Blood Oxygen Saturation 93.7 % (90-95) Arterial Blood Base Excess 1.6 mEq/L (-9-1.8) Arterial Blood Gas Delivery 4L Khurram Test POS (POS) White Blood Count 7.74 K/uL (4.8-10.8) Red Blood Count 4.13 M/uL (4.2-5.4) Hemoglobin 10.7 g/dL (12.0-16.0) Hematocrit 35.6 % (37-47) Mean Corpuscular Volume 86.2 fL (80-100) Mean Corpuscular Hemoglobin 25.9 pg (25-34) Mean Corpuscular Hemoglobin Concent 30.1 g/dl (32-36) Platelet Count 146 K/uL (130-400) Mean Platelet Volume 10.7 fL (7.4-10.4) Neutrophils (%) (Auto) 75.8 % Lymphocytes (%) (Auto) 13.3 % Monocytes (%) (Auto) 10.3 % Eosinophils (%) (Auto) 0.1 % Basophils (%) (Auto) 0.1 % Neutrophils # (Auto) 5.86 K/uL (1.4-6.5) Lymphocytes # (Auto) 1.03 K/uL (1.2-3.4) Monocytes # (Auto) 0.80 K/uL (0.11-0.59) Eosinophils # (Auto) 0.01 K/uL (0-0.5) Basophils # (Auto) 0.01 K/uL (0-0.2) RDW Standard Deviation 54.7 fL (36.4-46.3) RDW Coefficient of Variation 17.3 % (11.5-14.5) Immature Granulocyte % (Auto) 0.4 % Immature Granulocyte # (Auto) 0.03 K/uL (0.00-0.02) Prothrombin Time 38.1 SECONDS (9.0-12.0) Prothromb Time International Ratio 3.7 (0.9-1.1) Anion Gap 7.0 mmol/L (3-11) Est Creatinine Clear Calc Drug Dose 62.1 ml/min Estimated GFR () 88.1 Estimated GFR (Non- 76.0 BUN/Creatinine Ratio 50.9 (10-20) Calcium Level 9.4 mg/dl (8.5-10.1) Date/Time Source Procedure Growth Status 07/23/17 23:45 Blood Blood Culture - Preliminary NO GROWTH TO DATE. Resulted Last 24 Hours Test 07/28/17 08:16 White Blood Count 7.74 K/uL Red Blood Count 4.13 M/uL Hemoglobin 10.7 g/dL Hematocrit 35.6 % Mean Corpuscular Volume 86.2 fL Mean Corpuscular Hemoglobin 25.9 pg Mean Corpuscular Hemoglobin Concent 30.1 g/dl Platelet Count 146 K/uL Mean Platelet Volume 10.7 fL Neutrophils (%) (Auto) 75.8 % Lymphocytes (%) (Auto) 13.3 % Monocytes (%) (Auto) 10.3 % Eosinophils (%) (Auto) 0.1 % Basophils (%) (Auto) 0.1 % Neutrophils # (Auto) 5.86 K/uL Lymphocytes # (Auto) 1.03 K/uL Monocytes # (Auto) 0.80 K/uL Eosinophils # (Auto) 0.01 K/uL Basophils # (Auto) 0.01 K/uL RDW Standard Deviation 54.7 fL RDW Coefficient of Variation 17.3 % Immature Granulocyte % (Auto) 0.4 % Immature Granulocyte # (Auto) 0.03 K/uL Prothrombin Time 38.1 SECONDS Prothromb Time International Ratio 3.7 Sodium Level 139 mmol/L Potassium Level 3.9 mmol/L Chloride Level 103 mmol/L Carbon Dioxide Level 29 mmol/L Anion Gap 7.0 mmol/L Blood Urea Nitrogen 36 mg/dl Creatinine 0.71 mg/dl Est Creatinine Clear Calc Drug Dose 62.1 ml/min Estimated GFR () 88.1 Estimated GFR (Non- 76.0 BUN/Creatinine Ratio 50.9 Random Glucose 116 mg/dl Calcium Level 9.4 mg/dl Assessment & Plan 86 yo F with new onset hypoxia. 1. Acute hypoxic respiratory failure 2/2 acute diastolic dysfunction and COPD exacerbation. She is compensated from a heart failure standpoint and doing well on Lasix PO. She was started on PO prednisone and doxy two days ago in addition to neb treatments and although still requiring 2L NC states that her breathing is improved with clear lungs to auscultation. Of note, she is a lifelong nonsmoker, but states that she was diagnosed with COPD by her PCP. PFTs performed October 2016 revealed restrictive disease with a reduced FVC and FEV1. There was no significant bronchodilator response and the pattern was consistent with restrictive disease, air trapping, obesity or suboptimal effort and repeat PFTs were recommended. Pulmonology saw patient in followup today and recommends continuing current treatment. 2. CAD-stable, serial cardiac enzymes negative this admission. Pt denies CP. Cont metoprolol and ASA 3. Persistent atrial fibrillation-rate controlled. Coumadin on board but held because INR is supratherapeutic. 4. CKD Stage III-at baseline DVT prophylaxis: coumadin Full Code Dispo: Likely dc to rehab in am. DO Robson العراقي Hospitalist Consultants: Pulm Cards Current Inpatient Medications: Current Inpatient Medications Medications (Trade) Dose Ordered Sig/Michael Route Start Time Stop Time Status Last Admin Dose Admin Acetaminophen (Tylenol Tab) 650 mg Q4H PRN PO 07/24/17 03:30 08/23/17 03:29 Nitroglycerin (Nitrostat Tab) 0.4 mg UD PRN SL 07/24/17 03:30 08/23/17 03:29 Aspirin (Ecotrin Tab) 81 mg DAILY PO 07/24/17 09:00 08/23/17 08:59 Future hold 07/28/17 07:41 81 MG Escitalopram Oxalate (Lexapro Tab) 10 mg DAILY PO 07/24/17 09:00 08/23/17 08:59 Future hold 07/28/17 07:41 10 MG Pantoprazole Sodium (Protonix Tab) 40 mg QAM PO 07/24/17 09:00 08/23/17 08:59 Future Hold Morphine Sulfate (MoRPHine SULFATE INJ) 4 mg Q6H PRN IV 07/24/17 03:30 08/07/17 03:29 Future Hold 07/24/17 05:49 4 MG Prochlorperazine Edisylate 5 mg/ Syringe 5 ml @ 5 mls/min Q6H PRN IV 07/24/17 03:30 08/23/17 03:29 Oxycodone/ Acetaminophen (Percocet 5-325mg Tab) 1 tab Q6H PRN PO 07/24/17 03:30 08/07/17 03:29 Future Hold Ipratropium [place] (Atrovent 0.02% 0.5MG/2.5ML Neb) 0.5 mg Q6R INH 07/24/17 09:00 08/23/17 08:59 07/28/17 14:28 0.5 MG Levalbuterol (Xopenex 1.25MG/ 0.5ML Neb) 1.25 mg Q6R INH 07/24/17 09:00 08/23/17 08:59 07/28/17 14:28 1.25 MG Ipratropium [place] (Atrovent 0.02% 0.5MG/2.5ML Neb) 0.5 mg Q4H PRN INH 07/24/17 04:00 08/23/17 03:59 Levalbuterol (Xopenex 1.25MG/ 0.5ML Neb) 1.25 mg Q4H PRN INH 07/24/17 04:00 08/23/17 03:59 Metoprolol Tartrate (Lopressor Tab) 50 mg BID PO 07/25/17 09:00 08/23/17 20:59 07/28/17 07:41 50 MG Guaifenesin (Mucinex Contr Rel Tab) 600 mg Q12 PO 07/25/17 09:00 08/24/17 08:59 07/28/17 07:41 600 MG Doxycycline Hyclate (Vibramycin Cap) 100 mg BID PO 07/26/17 21:00 07/30/17 23:59 07/28/17 07:41 100 MG Furosemide (Lasix Tab) 20 mg QAM PO 07/27/17 09:00 08/26/17 08:59 07/28/17 07:40 20 MG Prednisone (PredniSONE TAB) 40 mg DAILY PO 07/28/17 09:00 08/27/17 08:59 07/28/17 07:41 40 MG Warfarin Sodium (Coumadin Tab) 3 mg DAILY@16 PO 07/27/17 16:00 08/23/17 15:59 Future Hold 07/27/17 15:45 3 MG
[2017-07-28] MEDS ORDERED: BISACODYL 10 MG SUPP PR PRN (22:00)
[2017-07-29] VITALS (10 sets, daily range): BP systolic 115–146; BP diastolic 74–88; PULSE 82–88; TEMP 36.3–36.5; O2SAT 92–99
[2017-07-29] MEDS: LEVALBUTEROL 1.25MG/0.5ML NEB INH SCH ×3 (01:45→14:13)
[2017-07-29] MEDS: IPRATROPIUM BROMIDE NEB SOLN 0.02% 2.5 ML VIAL INH SCH ×3 (01:45→14:13)
[2017-07-29] MEDS: ASPIRIN 81 MG ECTAB PO SCH (07:53)
[2017-07-29] MEDS: ESCITALOPRAM OXALATE 10 MG TAB PO SCH (07:53)
[2017-07-29] MEDS: GUAIFENESIN 600 MG TABCR PO SCH (07:53)
[2017-07-29] MEDS: DOXYCYCLINE HYCLATE 100 MG CAP PO SCH (07:53)
[2017-07-29] MEDS: METOPROLOL TARTRATE 50 MG TAB PO SCH (07:54)
[2017-07-29] MEDS: FUROSEMIDE 20 MG TAB PO SCH (07:54)
[2017-07-29] MEDS ORDERED: POLYETHYLENE (MIRALAX) 17 GM PACK PO SCH (09:00)
[2017-07-29] MEDS ORDERED: DXY100 PO (14:13)
[2017-07-29] MEDS ORDERED: PRD20 PO (14:13)
--- NOTE | 2017-07-29 14:22 | Discharge Instructions ---
Discharge Instructions Date of Service Jul 29, 2017. Admission Reason for Admission: Respiratory Failure, Acute Discharge Discharge Diagnosis / Problem: Acute respiratory failure 2/2 acute diastolic CHF exacerb and COPD exacerb Discharge Goals Goal(s): Prevent Disease Progression Activity Recommendations Activity Limitations: per Instructions/Follow-up section . Instructions / Follow-Up Instructions / Follow-Up Call your Primary Care doctor if any of the following symptoms or problems start or get worse: * Shortness of breath or difficulty breathing * Wake up at night short of breath * Chest pain * Cough * Swelling of your hands, feet, or legs * More fatigued or tired with your normal activity * Palpitations - sudden fast heart beats WEIGHT * Weigh yourself every morning after using the bathroom. * Use the same scale. * Wear the same amount of clothing. * Write your weight down on a chart. * Call your Primary Care doctor if you gain more than 2-3 pounds in 1-2 days. MEDICATIONS * Use this discharge instruction sheet for medication instructions. * Take your medications at the time your doctor ordered. * Do not skip a dose of your medicines. * If you miss a dose of medicine, take it as soon as possible, but DO NOT DOUBLE A DOSE. * Read your medicine information when you get home. * Know all of the side effects of your medicine. If in doubt, ask your pharmacist * Call your Primary Care doctor's office if you have any side effects. * Be sure all of your doctors know what medicine and herbs you take (including cold, flu, and herbal medicine). Take the following with you to your follow-up doctor appointments: * Weight Chart * Medication List * List of questions Do not drink excessive alcohol, beer or wine. ADDITIONAL PROVIDER INSTRUCTIONS: -Please take all medications as instructed above. -You were given three more days of prednisone (steroid) and doxycycline ( antibiotic) to take. This will be provided for you at [facility]-you will not need a prescription for this. -You will need to have a daily INR level checked while at rehab as it is currently too high and your coumadin has been put on hold. Your goal INR is 2- 3 and one of the providers at the rehab center can adjust this. When you are discharged from rehab please continue to follow-up with the [facility]ticoagulation [facility] who was managing you before admission. -It is strongly recommended that you see your primary care physician within one week of discharge from rehab to ensure hospital follow-up. -It is recommended that you follow-up with [facility] Cardiology in one month. You were seen by Dr. Dane Eilse during this hospital stay. -It is recommended that you follow-up with [facility]-Pulmonology office when able. You were seen by Dr. Mc Frank while in the hospital. It was a pleasure taking care of you! Call if you have any questions or problems. You can reach a [facility] hospitalist on duty at [facility] 24 hours a day by calling [phone]. Take care of yourself. Jacquie Montalvo, DO [facility] Hospitalist Current Hospital Diet Patient's current hospital diet: AHA Diet (Heart Healthy) Discharge Diet Recommended Diet: AHA Diet (Heart Healthy) Procedures Procedures Performed: 2D Echo Pending Studies Studies pending at discharge: no Laboratory Results Hemoglobin A1c Test 07/24/17 05:47 Range/Units Estimated Average Glucose 123 mg/dl Hemoglobin A1c 5.9 H 4.5-5.6 % Medical Emergencies . Who to Call and When: Call 911 or go to the Emergency Room if: * If at any time you feel your situation is an emergency * You have tightness or pain in your chest that does not go away with rest or Nitroglycerin * You are very short of breath even with rest . Non-Emergent Contact Non-Emergency issues call your: Primary Care Provider . . "Provider Documentation" section prepared by Jacquie Montalvo. . VTE Core Measure Inpt VTE Proph given/why not?: Warfarin (Coumadin)
--- NOTE | 2017-07-29 14:26 | Discharge Summary ---
Discharge Summary Date of Service Jul 29, 2017. 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 * Normal LV systolic function with abnormal septal wall motion consistent with LBBB pattern, otherwise, normal. EF 55-60%. * Diastolic dysfunction is present given left atrial enlargement. * The right ventricular cavity size is normal (basal dimension <4.2 cm in right ventricular apical 4-chamber view). The right ventricular systolic function is reduced as assessed by tricuspid annular plane systolic excursion (TAPSE) ( TAPSE <1.6 cm). * Aortic valve sclerosis mild, without significant aortic valvular stenosis. * Mild mitral regurgitation. * Trace tricuspid regurgitation. * Mild left atrial enlargement. Vaccinations: None. Consultations: Pulm-Dr. Mc Frank [facility]-Dr. Dane Elise Pending Studies/Follow-Up: see instructions below. Medication Reconciliation New Medications: Doxycycline Hyclate (Doxycycline Hyclate) 100 Mg Cap 100 MG PO BID for 3 Days, #6 CAP Prednisone (Prednisone) 20 Mg Tab 40 MG PO DAILY for 3 Days, #6 TAB Continued Medications: Aspirin (Aspirin Ec) 81 Mg Tab 81 MG PO DAILY Calcium Carbonate-Cholecalcife (Caltrate 600+D) 1 Tab Tab 1 TAB PO BID Escitalopram (Lexapro) 10 Mg Tab 10 MG PO DAILY, TAB Metoprolol Tartrate (Lopressor) (Lopressor) 50 Mg Tab 50 MG PO BID, #180 Omeprazole (Prilosec) 20 Mg Capcr 20 MG PO DAILY, CAP Discontinued Medications: Warfarin Sodium (Coumadin) 5 Mg Tab 2.5 MG PO QPM 6XWK, TAB DOES NOT TAKE ON WEDNESDAY Admission Information HPI (per Admitting provider): HISTORY OF PRESENT ILLNESS: History obtained from patient, family, and records. Limited history from the patient secondary to disorientation, hearing impairment , and respiratory distress. Medical history is significant for AFib on Coumadin, PSVT as per records, chronic left bundle branch block, history of nonobstructive CAD as per records, hypertension, and hyperlipidemia. Recent confinement last 2014 for pneumonia and atrial fibrillation with RVR. In the last week, the patient noted to have increased congestion, cough productive of yellow sputum, sore throat, feeling short of breath at times. Inhaler occasionally helping. No sick contacts. Denies aspiration. No unusual fluid retention or weight gain as per family. Family unaware of abdominal pain, black/bloody stools complaints from patient. Patient was seen at PCP's office a few days ago. Diagnosis was "COPD exacerbation." Prescribed Augmentin and prednisone. No improvement. Patient was brought to the Emergency Room by family. At the Emergency Room, the patient received Levaquin, DuoNebs and IV fluids for possible sepsis. Progressive hypoxemia, respiratory distress noted after patient returned from CT. BiPAP initiated. Physical Exam (per Admitting): PHYSICAL EXAMINATION: VITAL SIGNS: Blood pressure noted to be initially 170/73 later 158/73 MD 95 later 130s RR 33 T 37.1 O2 sats initially 94 on 3 liters and later 94 on BiPAP. GEN : Noted to be disoriented, respiratory distress. SKIN: Pallor and warmth. HEENT: [place] palpebral conjuctivae. Dry mucosa. No ptosis. BiPAP in place. NECK: Short neck. JVD. Supple. CHEST: Rhonchi bilateral and wheezing. No chest wall tenderness. HEART: Irregular. Tachycardic. ABDOMEN: Some distention. Nontender. EXTREMITIES: Venous stasis. No tenderness. No other gross deformities. NEUROLOGIC: Disoriented. No facial asymmetry. Hospital Course Pt presented to the ER with reports of shortness of breath. Her PCP has previously diagnosed her with bronchitis the day prior. In the ER, she was found to be slightly tachycardic at 100-110 with elevated SBP to 170. On exam she had scattered rhonchi bilaterally. CXR revealed increased interstitial markings in the right lower lobe and CTA chest revealed no PE was was suggestive of pulmonary arterial hypertension. Labs revealed slight anemia but were otherwise unremarkable. Flu was negative. She received a Duoneb treatment, Levaquin and IVF in the ER. She began having increased work of breathing and received BIPAP, SL nitro, Lasix, Nitropaste. She was noted to be significantly hypertensive and had respiratory distress. Additional nitroglycerin was given x 2 doses and finally she was placed on a nitro drip. she began to feel better with improved blood pressure. She was admitted to Medicine. Bipap was continued overnight and Lasix was continued for CHF. Doxycycline was started for complicated bronchitis. Cardiology and Pulmonary were consulted. Cardiology thought her volume overload was too insignificant to explain her decompensation and attributed the hypoxia to her respiratory infection. Pulmonary thought she was fluid overloaded. She continued to improve over several days with Doxycycline, steroids, bronchodilators, and Lasix. By day of discharge she was deconditioned enough to require rehab [facility] She was hemodynamically stable and afebrile. She was tolerating PO and was off the oxygen completely. Physical exam was unremarkable. She was discharged in stable condition. Total time spent on discharge = 60 minutes This includes examination of the patient, discharge planning, medication reconciliation, and communication with other providers. [place] [address] Discharge Heart Failure (CHF) Patient Name: Pascale Cooper Unit Number: [id number] Date of : 1930 Patient Status: Admitted Inpatient Attending Doctor: Jacquie Montalvo DO DI: CHF v4 Discharge Instructions Date of Service Jul 29, 2017. Admission Reason for Admission: Respiratory Failure, Acute Discharge Discharge Diagnosis / Problem: Acute respiratory failure 2/2 acute diastolic CHF exacerb and COPD exacerb Discharge Goals Goal(s): Prevent Disease Progression Activity Recommendations Activity Limitations: per Instructions/Follow-up section . Instructions / Follow-Up Instructions / Follow-Up Call your Primary Care doctor if any of the following symptoms or problems start or get worse: * Shortness of breath or difficulty breathing * Wake up at night short of breath * Chest pain * Cough * Swelling of your hands, feet, or legs * More fatigued or tired with your normal activity * Palpitations - sudden fast heart beats WEIGHT * Weigh yourself every morning after using the bathroom. * Use the same scale. * Wear the same amount of clothing. * Write your weight down on a chart. * Call your Primary Care doctor if you gain more than 2-3 pounds in 1-2 days. MEDICATIONS * Use this discharge instruction sheet for medication instructions. * Take your medications at the time your doctor ordered. * Do not skip a dose of your medicines. * If you miss a dose of medicine, take it as soon as possible, but DO NOT DOUBLE A DOSE. * Read your medicine information when you get home. * Know all of the side effects of your medicine. If in doubt, ask your pharmacist * Call your Primary Care doctor's office if you have any side effects. * Be sure all of your doctors know what medicine and herbs you take (including cold, flu, and herbal medicine). Take the following with you to your follow-up doctor appointments: * Weight Chart * Medication List * List of questions Do not drink excessive alcohol, beer or wine. ADDITIONAL PROVIDER INSTRUCTIONS: -Please take all medications as instructed above. -You were given three more days of prednisone (steroid) and doxycycline ( antibiotic) to take. [facility]-you will not need a prescription for this. -You will need to have a daily INR level checked while at rehab as it is currently too high and your coumadin has been put on hold. Your goal INR is 2- 3 and one of the providers at the rehab center can adjust this. When you are discharged from rehab please continue to follow-up with the [facility] who was managing you before admission. -It is strongly recommended that you see your primary care physician within one week of discharge from rehab to ensure hospital follow-up. -It is recommended that you follow-up with [facility] in one month. You were seen by Dr. Dane Elise during this hospital stay. -It is recommended that you follow-up with [facility]-Pulmonology office when able. You were seen by Dr. Mc Frank while in the hospital. It was a pleasure taking care of you! Call if you have any questions or problems. You can reach a [facility] hospitalist on duty at [facility] 24 hours a day by calling [phone]. Take care of yourself. Jacquie Montalvo, DO [facility] Hospitalist Current Hospital Diet Patient's current hospital diet: AHA Diet (Heart Healthy) Discharge Diet Recommended Diet: AHA Diet (Heart Healthy) Procedures Procedures Performed: 2D Echo Pending Studies Studies pending at discharge: no Laboratory Results Hemoglobin A1c Test 07/24/17 05:47 Range/Units Estimated Average Glucose 123 mg/dl Hemoglobin A1c 5.9 H 4.5-5.6 % Medical Emergencies . Who to Call and When: Call 911 or go to the Emergency Room if: * If at any time you feel your situation is an emergency * You have tightness or pain in your chest that does not go away with rest or Nitroglycerin * You are very short of breath even with rest . Non-Emergent Contact Non-Emergency issues call your: Primary Care Provider . . "Provider Documentation" section prepared by Jacquie Montalvo. . VTE Core Measure Inpt VTE Proph given/why not?: Warfarin (Coumadin) Additional Copies To Tariq Toussaint M.D.
== END 2017-07-29 16:24 | DRG 291 ==
LOC: EDBD 22:34 → C.EDB 22:36 → C.MED 07-24 02:28 → CANRESERV 07-24 02:40 → ENRESERV 07-24 02:40 → EDBEDREQSVC 07-24 02:48 → ENRESERV 07-24 04:24
PROVIDERS: ADMIT Internal Medicine; ATTEND Hospitalist
DX: I50.31 Acute diastolic (congestive) heart failure (principal); J96.01 Acute respiratory failure with hypoxia; J96.02 Acute respiratory failure with hypercapnia; J44.1 Chronic obstructive pulmonary disease with (acute) exacerbation; I13.0 Hypertensive heart and chronic kidney disease with heart failure and stage 1 through stage 4 chronic kidney disease, or unspecified chronic kidney disease; I48.1 Persistent atrial fibrillation; J44.0 Chronic obstructive pulmonary disease with (acute) lower respiratory infection; J40 Bronchitis, not specified as acute or chronic; E78.5 Hyperlipidemia, unspecified; I25.10 Atherosclerotic heart disease of native coronary artery without angina pectoris; I44.7 Left bundle-branch block, unspecified; N18.3 Chronic kidney disease, stage 3 (moderate); E87.6 Hypokalemia; Z66 Do not resuscitate; Z79.01 Long term (current) use of anticoagulants; Z79.82 Long term (current) use of aspirin; Z79.899 Other long term (current) drug therapy

== ENCOUNTER → 2017-08-06 | Day surgery (SDC) | payer OTHER ==
[~2017-08-06] VITALS: Ht 170.2 cm; Wt 86.3 kg
[~2017-08-06] MED LIST changes: -AMLO-110 PO; +ATRINS NEB; +BISA-16 PR; +CEFE2INJ2 IV; +DOCU100C31 PO; +DXY100 PO; +ESCI10TA17 PO; +FLUT1INH; +FURO-85 PO; +GUAI1TAB75 PO; +NTRGSL/4 UT; +PANT40TA PO; +POLY335019 PO; +PRD20 PO; +PRLSR20 PO; -WARF5TAB90 PO
[2017-08-06 14:46] VITALS: BP 109/72; PULSE 85; TEMP 36.6; O2SAT 92; Ht 170.2 cm; Wt 86.3 kg
--- NOTE | 2017-08-06 17:04 | DIAGNOSTIC IMAGING REPORT ---
CHEST ONE VIEW PORTABLE CLINICAL HISTORY: 86 years-old Female presenting with right PICC tip placement. TECHNIQUE: Portable upright AP view of the chest was obtained. COMPARISON: 07/24/2017. FINDINGS: Right upper extremity PICC now in place, terminating in the superior cavoatrial junction. Atherosclerosis of aortic arch. Cardiac silhouette moderately enlarged as on prior exam. Significant interval decrease in central and basilar predominant hazy opacities. Minimal patchy opacities persist in the lung bases. However, there is new focal dense opacity in the peripheral left upper lobe. No large pleural effusion or pneumothorax. Degenerative changes of the thoracic spine. Biopsy clip noted in the left breast. Upper abdomen normal. IMPRESSION: 1. Interval placement of right upper extremity PICC, which is appropriately positioned. No pneumothorax. 2. Interval decrease in pulmonary edema. 3. However, interval development of focal consolidation peripherally in the left upper lobe. This is concerning for pneumonia. Electronically signed by: Faraz Hernandez M.D. 08/06/2017 5:03 PM Dictated Date/Time: 08/06/2017 5:01 PM
== END | disposition home or self-care (01) ==
LOC: C.MTU 14:18
PROVIDERS: ATTEND Physical Medicine & Rehabilitation
DX: I48.2 Chronic atrial fibrillation (principal)

== ENCOUNTER → 2017-10-01 | Outpatient (CLI) | payer OTHER ==
[~2017-10-01] MED LIST changes: -PRD20 PO
--- NOTE | 2017-10-01 10:09 | DIAGNOSTIC IMAGING REPORT ---
CHEST 2 VIEWS ROUTINE CLINICAL HISTORY: R91.8 ABNORMAL CHEST X-RAY COMPARISON STUDY: August 06, 2017 FINDINGS: The heart remains enlarged. There is been significant interval improvement in the bilateral airspace opacities with a middle residua present within the axillae portion of the left chest. There is mild vascular prominence without evidence of overt failure. There are no significant pleural effusions.[ The right-sided PICC catheter has been removed. IMPRESSION: 1. Interval removal of the right-sided PICC catheter 2. Interval resolution of the previous identified pulmonary edema 3. Near complete interval resolution of the previously identified airspace opacities Electronically signed by: Robert Johnson M.D. 10/01/2017 10:08 AM Dictated Date/Time: 10/01/2017 10:06 AM
== END | disposition home or self-care (01) ==
LOC: C.RAD1850 09:51
PROVIDERS: ATTEND Physician Assistant
DX: R91.8 Other nonspecific abnormal finding of lung field (principal)

== ENCOUNTER → 2017-10-08 | Outpatient (CLI) | payer OTHER ==
--- NOTE | 2017-10-08 16:27 | DIAGNOSTIC IMAGING REPORT ---
(CHEST) THORAX WITHOUT CLINICAL HISTORY: LUNG INFILTRATE BILATERAL AIRSPACE OPACITIES ON PRIOR CHEST X-RAY COMPARISON STUDY: September 03, 2017 , 07/24/2017 CT DOSE: 366.90 mGy.cm TECHNIQUE: CT of the thorax was performed from the thoracic inlet to the lung bases. Images are reviewed in the axial, sagittal, and coronal planes. IV contrast was not administered for this examination. A dose lowering technique was utilized adhering to the principles of ALARA. FINDINGS: Thyroid: Imaged portions of the thyroid gland are normal in appearance. Thoracic aorta: The thoracic aorta is normal in course and caliber, noting standard 3 vessel arch anatomy. Heart: The heart is enlarged. There are coronary artery calcifications. There is no significant pericardial effusion. Lungs and pleural spaces: There are trace bilateral pleural effusions. There is no lobar consolidation. There is subtle groundglass parenchymal attenuation with a mosaic distribution. There are a few more discrete groundglass opacities. The findings are consistent with resolving pulmonary edema, or a resolving inflammatory, possibly in the setting of underlying lung disease with air trapping. There is a prominent area of linear scarring within the left upper lobe. Additional areas of parenchymal scarring are evident. There is a stable 7 mm right middle lobe nodule abutting the fissure. Mediastinum: There are borderline enlarged mediastinal lymph nodes likely reactive. Yoly: There is no evidence of pathologic hilar adenopathy given the limitations of a noncontrast study Axilla: Clear. Upper abdomen: There is 29 mm Contour deformity involving the anterior aspect of the left kidney. It is not possible on this study to differentiate a renal mass from lobulation. Skeletal structures: There are no lytic or blastic osseous lesions. IMPRESSION: 1. Borderline enlarged mediastinal lymph nodes, likely reactive 2. Trace pleural effusions left greater than right 3. Significant interval improvement in the bilateral groundglass and nodular opacities. When compared the prior July 2017 study. The findings are consistent with either resolving pulmonary edema, or a resolving inflammatory process possibly the setting of underlying interstitial lung disease with air trapping. 4. Stable nonspecific 7 mm right middle lobe nodule abutting the fissure. Electronically signed by: Robert Johnson M.D. 10/08/2017 4:26 PM Dictated Date/Time: 10/08/2017 4:16 PM
== END | disposition home or self-care (01) ==
LOC: C.CTS 15:38
PROVIDERS: ATTEND Physician Assistant
DX: R91.8 Other nonspecific abnormal finding of lung field (principal); Z87.09 Personal history of other diseases of the respiratory system

== ENCOUNTER 2018-02-06 06:36 | Inpatient (IN) | payer OTHER ==
[2018-02-06] VITALS (7 sets, daily range): BP systolic 115–147; BP diastolic 64–96; PULSE 74–87; TEMP 36.5–36.8; O2SAT 90–99; Ht 170.2 cm; Wt 83.8 kg
[~2018-02-06] VITALS: Ht 170.2 cm; Wt 83.8 kg
[2018-02-06] MEDS ORDERED: METHYLPREDNISOLONE 125 MG VIAL IV STA (06:51)
[2018-02-06] MEDS ORDERED: ALBUT/IPRATROP 3MG/0.5MG NEB 3 ML VIAL INH STA (06:51)
--- NOTE | 2018-02-06 07:11 | EMERGENCY ROOM VISIT NOTE ---
History Report prepared by Ashok: Lisseth Rosario Under the Supervision of: Dr. Eric Saravia M.D. First contact with patient: 06:39 Chief Complaint: SHORTNESS OF BREATH Stated Complaint: SHORT OF BREATH History of Present Illness The patient is an 87 year old female who presents to the Emergency Room with complaints of shortness of breath beginning this morning. The patient reports feeling better after the ambulance gave her a breathing treatment. The patient states that she uses nebulizers regularly and that she has a history of bronchitis and pneumonia. The patient reports that she wears 2L of oxygen at night but none during the day. She reports that her breathing was fine yesterday and she states that she has been feeling well over the last couple of weeks. The patient denies being around anyone sick. The patient reports having an occasional cough and chronic left shoulder pain. The patient states that she takes a water pill. Pt denies headache, fevers, chills, diaphoresis, chest pain, back pain, nausea, vomiting, abdominal pain, melena, hematochezia, urinary symptoms, numbness, weakness, or other complaints. Per EMS, the patient was given a DuoNeb and oxygen en route. The patient's pre- hospital ECG shows atrial fibrillation, 92, left axis deviation, left bundle branch block, and anteroseptal Q waves. Source of History: patient, EMS Onset: this morning Position: chest Quality: other (shortness of breath ) Modifying Factors (Relieving): other (DuoNeb) Associated Symptoms: + cough, No chest pain Review of Systems See HPI for pertinent positives and negatives. A total of ten systems were reviewed and were otherwise negative. Past Medical & Surgical Medical Problems: (1) Atrial fibrillation (2) Atrial fibrillation (3) Bronchitis (4) Bronchitis (5) Gallbladder problem (6) Headache (7) Headache (8) Headache (9) Headache (10) Headache (11) Heart disease (12) Heart disease (13) Laceration (14) Pneumonia (15) Pneumonia (16) Respiratory failure, acute (17) Respiratory failure, acute (18) Warfarin anticoagulation Social History Problems: (1) Gallbladder problem (2) Headache (3) Laceration (4) Left sided chest pain (5) Left sided chest pain (6) Warfarin anticoagulation Family History FH: heart attack FH: heart attack Hypertension Hypertension Social History Smoking Status: Never Smoker Alcohol Use: none Drug Use: none Marital Status: Housing Status: lives with significant other Occupation Status: employed Current/Historical Medications Scheduled Aspirin (Aspirin Ec), 81 MG PO DAILY Calcium Carbonate-Cholecalcife (Caltrate 600+D), 1 TAB PO BID Escitalopram (Lexapro), 10 MG PO DAILY Fluticasone Furoate-Vilanterol (Breo Ellipta), 1 INHA NA DAILY Furosemide (Lasix), 20 MG PO Q2D Metoprolol Tartrate (Lopressor) (Lopressor), 50 MG PO BID Nitroglycerin (Nitrostat), 0.4 MG UT PRN Omeprazole (Prilosec), 20 MG PO DAILY Simvastatin (Simvastatin), 20 MG PO DAILY Warfarin Sodium (Warfarin Sodium), 2.5 MG PO [id number] Scheduled PRN Bisacodyl (Dulcolax), 10 MG [place] UD PRN for Constipation Levalbuterol (Levalbuterol HCl), 3 ML PO Q4H PRN for Wheezing Allergies Coded Allergies: Propoxyphene (Unverified Allergy, Unknown, 02/06/18) Tramadol (Unverified Allergy, Unknown, DELIRIUM, 02/06/18) hallucinations Indomethacin (Unverified Adverse Reaction, Unknown, GASTRIC UPSET, 02/06/18) Rofecoxib (Unverified Adverse Reaction, Unknown, DRY MOUTH, 02/06/18) Physical Exam Vital Signs Date Time Temp Pulse Resp B/P (MAP) Pulse Ox O2 Delivery O2 Flow Rate FiO2 02/06/18 09:00 99 Nasal Cannula 6.0 02/06/18 08:36 83 26 02/06/18 08:31 140/84 02/06/18 08:06 85 21 99 02/06/18 08:01 139/88 02/06/18 07:50 142/70 02/06/18 07:43 98 Nasal Cannula 6.0 02/06/18 07:43 98 Room Air 6.0 02/06/18 07:36 79 25 97 02/06/18 07:06 84 28 02/06/18 06:50 90 Nasal Cannula 6.0 02/06/18 06:48 36.5 81 30 171/94 90 Nasal Cannula 6.0 02/06/18 06:47 102 02/06/18 06:43 171/94 Physical Exam GENERAL: Awake, alert, well-appearing, in mild distress HENT: Normocephalic, atraumatic. Oropharynx unremarkable. EYES: Normal conjunctiva. Sclera non-icteric. NECK: Supple. No nuchal rigidity. FROM. No masses. RESPIRATORY: Increased respiratory effort. Coarse breath sounds. Diminished at bases. CARDIAC: Normal rate. Irregular rhythm. No murmurs. No rubs. Extremities warm and well perfused. Pulses equal. No JVD. GI: Soft, non-distended. No tenderness to palpation. No rebound or guarding. No masses. RECTAL: Deferred. MUSCULOSKELETAL: Atraumatic. Chest examination reveals no tenderness. The back is symmetrical on inspection without obvious abnormality. There is no CVA tenderness to palpation. No joint edema. LOWER EXTREMITIES: Calves are equal size bilaterally and non-tender. Trace pedal edema. No discoloration. NEURO: Normal sensorium. No sensory or motor deficits noted. SKIN: No rash or jaundice noted. Medical Decision & Procedures ER Provider Diagnostic Interpretation: Radiology results as stated below per my review and radiologist interpretation: CHEST ONE VIEW PORTABLE CLINICAL HISTORY: EVALUATE RESPIRATORY DISTRESS.DYSPNEA COMPARISON STUDY: 10/01/2017 FINDINGS: Moderate cardiomegaly. Components of congestive heart failure. Probable trace pleural effusion left lung base. IMPRESSION: Congestive heart failure The above report was generated using voice recognition software. It may contain grammatical, syntax or spelling errors. Electronically signed by: Tariq Olivas M.D. 02/06/2018 7:39 AM Dictated Date/Time: 02/06/2018 7:38 AM Laboratory Results 02/06/18 07:35 Red Blood Count 3.88, Mean Corpuscular Volume 82.5, Mean Corpuscular Hemoglobin 24.0, Mean Corpuscular Hemoglobin Concent 29.1, Mean Platelet Volume 10.0, Neutrophils (%) (Auto) 82.8, Lymphocytes (%) (Auto) 8.7, Monocytes (%) (Auto) 6.2, Eosinophils (%) (Auto) 1.9, Basophils (%) (Auto) 0.2, Neutrophils # (Auto) 7.44, Lymphocytes # (Auto) 0.78, Monocytes # (Auto) 0.56, Eosinophils # (Auto) 0.17, Basophils # (Auto) 0.02 02/06/18 07:35 Test 02/06/18 07:35 02/06/18 08:15 White Blood Count 8.99 K/uL (4.8-10.8) Red Blood Count 3.88 M/uL (4.2-5.4) Hemoglobin 9.3 g/dL (12.0-16.0) Hematocrit 32.0 % (37-47) Mean Corpuscular Volume 82.5 fL (80-100) Mean Corpuscular Hemoglobin 24.0 pg (25-34) Mean Corpuscular Hemoglobin Concent 29.1 g/dl (32-36) Platelet Count 173 K/uL (130-400) Mean Platelet Volume 10.0 fL (7.4-10.4) Neutrophils (%) (Auto) 82.8 % Lymphocytes (%) (Auto) 8.7 % Monocytes (%) (Auto) 6.2 % Eosinophils (%) (Auto) 1.9 % Basophils (%) (Auto) 0.2 % Neutrophils # (Auto) 7.44 K/uL (1.4-6.5) Lymphocytes # (Auto) 0.78 K/uL (1.2-3.4) Monocytes # (Auto) 0.56 K/uL (0.11-0.59) Eosinophils # (Auto) 0.17 K/uL (0-0.5) Basophils # (Auto) 0.02 K/uL (0-0.2) RDW Standard Deviation 55.8 fL (36.4-46.3) RDW Coefficient of Variation 18.5 % (11.5-14.5) Immature Granulocyte % (Auto) 0.2 % Immature Granulocyte # (Auto) 0.02 K/uL (0.00-0.02) Prothrombin Time 20.8 SECONDS (9.0-12.0) Prothromb Time International Ratio 2.0 (0.9-1.1) Activated Partial Thromboplast Time 31.6 SECONDS (21.0-31.0) Partial Thromboplastin Ratio 1.2 Anion Gap 8.0 mmol/L (3-11) Est Creatinine Clear Calc Drug Dose 45.5 ml/min Estimated GFR () 60.8 Estimated GFR (Non- 52.4 BUN/Creatinine Ratio 22.4 (10-20) Calcium Level 9.2 mg/dl (8.5-10.1) Total Bilirubin 0.7 mg/dl (0.2-1) Aspartate Amino Transf (AST/SGOT) 20 U/L (15-37) Alanine Aminotransferase (ALT/SGPT) 17 U/L (12-78) Alkaline Phosphatase 71 U/L (45-117) Total Creatine Kinase 47 U/L (26-192) Creatine Kinase MB 1.4 ng/ml (0.5-3.6) Creatine Kinase MB Ratio 3.0 (0-3.0) Pro-B-Type Natriuretic Peptide 2268 pg/ml (0-1800) Total Protein 6.8 gm/dl (6.4-8.2) Albumin 3.4 gm/dl (3.4-5.0) Globulin 3.4 gm/dl (2.5-4.0) Albumin/Globulin Ratio 1.0 (0.9-2) Urine Color YELLOW Urine Appearance CLEAR (CLEAR) Urine pH 6.0 (4.5-7.5) Urine Specific [place] 1.022 (1.000-1.030) Urine Protein TRACE (NEG) Urine Glucose (UA) NEG (NEG) Urine Ketones NEG (NEG) Urine Occult Blood NEG (NEG) Urine Nitrite NEG (NEG) Urine Bilirubin NEG (NEG) Urine Urobilinogen NEG (NEG) Urine Leukocyte Esterase NEG (NEG) Urine WBC (Auto) 1-5 /hpf (0-5) Urine RBC (Auto) 0-4 /hpf (0-4) Urine Hyaline Casts (Auto) 1-5 /lpf (0-5) Urine Epithelial Cells (Auto) 10-20 /lpf (0-5) Urine Bacteria (Auto) NEG (NEG) Laboratory results reviewed by me Medications Administered Medications (Trade) Dose Ordered Sig/Michael Route Start Time Stop Time Status Last Admin Dose Admin Albuterol/ Ipratropium (Duoneb) 3 ml NOW STAT INH 02/06/18 06:51 02/06/18 06:52 DC 02/06/18 07:21 3 ML Methylprednisolone Sodium Succinate (Solu-Medrol IV) 125 mg NOW STAT IV 02/06/18 06:51 02/06/18 06:52 DC 02/06/18 07:40 125 MG Furosemide (Lasix Inj) 40 mg NOW STAT IV 02/06/18 07:49 02/06/18 07:50 DC 02/06/18 08:19 40 MG Nitroglycerin (Nitroglycerin 2% Oint) 0.5 inch NOW ONCE EXT 02/06/18 08:00 02/06/18 08:01 DC 02/06/18 08:26 0.5 INCH ECG Per My Interpretation Indication: SOB/dyspnea Rate (beats per minute): 91 Rhythm: atrial fibrillation Findings: LBBB, other (left axis deviation, no PVCs) ED Course 0640: I reviewed the patient's old medical records. 0645: The patient was evaluated in room B6. A complete history and physical exam was performed. 0651: Ordered Methylprednisolone Sodium Succinate 125 mg IV, Duoneb 3 ml INH. 0746: I checked on the patient and she is feeling a little better. Her family is now at bedside. I updated them. 0749: Ordered Lasix Inj 40 mg IV. 0800: Ordered Nitroglycerin 0.5 inch EXT. 0849: Upon reexamination, the patient was resting. I discussed the test results and treatment plan with the patient and her family. The patient will be evaluated for further management by Dr. Lomeli. Medical Decision Prior records/ancillary studies reviewed. Triage Nursing notes reviewed and agree them. The patient's history was concerning for shortness of breath. Differential diagnosis: Etiologies such as pneumonia, COPD, reactive airway disease, CHF, cardiac ischemia, pulmonary embolism, pneumothorax, musculoskeletal, infections, gastrointestinal, as well as others were entertained. Physical examination: As above. The patient was requiring supplemental oxygen to maintain her saturations in the low 90s. Without oxygen she dipped into the 70s. ER treatment provided: Supplemental oxygen DuoNeb Solu-Medrol On reassessment the patient felt better. IV Lasix Nitro paste On reassessment the patient was feeling much better. She was still requiring supplemental oxygen. She had diuresed 800 mL of urine. Diagnostic interpretation by me: The electrocardiogram was negative for pathologic change. The labs revealed a moderate anemia on CBC but only slightly worse than prior. Chemistry panel was unremarkable. The patient has an elevated BNP concerning for CHF. Troponin negative. Urinalysis negative. Imaging studies: Chest x-ray as above. Consultation: A consultation was placed with the hospitalist. The case was discussed and diagnostics were reviewed. The patient was evaluated in the ER for further treatment. Medication Reconcilliation Current Medication List: was personally reviewed by me Blood Pressure Screening Patient's blood pressure: Elevated blood pressure will be monitored by hospitalist Consults Time Called: 08 Consulting Physician: Dr. Cedric Chance Returned Call: [phone] Discussed the patient's case. The patient will be evaluated for further treatment and disposition. Impression Primary Impression: Respiratory failure, acute Additional Impressions: Hypoxia Congestive heart failure Scribe Attestation The scribe's documentation has been prepared under my direction and personally reviewed by me in its entirety. I confirm that the note above accurately reflects all work, treatment, procedures, and medical decision making performed by me. Departure Information Dispostion Being Evaluated By Hospitalist Referrals Tariq Toussaint M.D. (PCP) Patient Instructions My [facility] Problem Qualifiers
--- NOTE | 2018-02-06 07:40 | DIAGNOSTIC IMAGING REPORT ---
CHEST ONE VIEW PORTABLE CLINICAL HISTORY: EVALUATE RESPIRATORY DISTRESS.DYSPNEA COMPARISON STUDY: 10/01/2017 FINDINGS: Moderate cardiomegaly. Components of congestive heart failure. Probable trace pleural effusion left lung base. IMPRESSION: Congestive heart failure The above report was generated using voice recognition software. It may contain grammatical, syntax or spelling errors. Electronically signed by: Tariq Olivas M.D. 02/06/2018 7:39 AM Dictated Date/Time: 02/06/2018 7:38 AM
[2018-02-06] MEDS ORDERED: FUROSEMIDE 40 MG/4 ML VIAL IV STA (07:49)
[2018-02-06 07:59] LABS: BASO % 0.2 %; BASO ABS # 0.02 K/uL (0-0.2); EOS % 1.9 %; EOS ABS # 0.17 K/uL (0-0.5); HEMOGLOBIN 9.3 g/dL (12.0-16.0); IG# 0.02 K/uL (0.00-0.02); LYMPH % 8.7 %; LYMPH ABS # 0.78 K/uL (1.2-3.4); MEAN CELL VOLUME 82.5 fL (80-100); MEAN CORPUSCULAR HGB CONC 29.1 g/dl (32-36); MONO % 6.2 %; MONO ABS # 0.56 K/uL (0.11-0.59); NEUT % 82.8 %; NEUT ABS # 7.44 K/uL (1.4-6.5); PLATELET COUNT 173 K/uL (130-400); PTT PATIENT 31.6 SECONDS (21.0-31.0); RED CELL DISTRIBUTION WIDTH CV 18.5 % (11.5-14.5); RED CELL DISTRIBUTION WIDTH SD 55.8 fL (36.4-46.3); WHITE BLOOD COUNT 8.99 K/uL (4.8-10.8)
[2018-02-06] MEDS ORDERED: NITROGLYCERIN 2% OINTMENT 30GM TUBE EXT ONE (08:00)
[2018-02-06 08:13] LABS: ALBUMIN 3.4 gm/dl (3.4-5.0); ALKALINE PHOSPHATASE 71 U/L (45-117); ALT/SGPT 17 U/L (12-78); AST/SGOT 20 U/L (15-37); BLOOD UREA NITROGEN 22 mg/dl (7-18); CALCIUM 9.2 mg/dl (8.5-10.1); CARBON DIOXIDE 26 mmol/L (21-32); CKMB 1.4 ng/ml (0.5-3.6); CREATININE 0.96 mg/dl (0.60-1.20); GLUCOSE 123 mg/dl (70-99); POTASSIUM 4.3 mmol/L (3.5-5.1); SODIUM 141 mmol/L (136-145); TOTAL PROTEIN 6.8 gm/dl (6.4-8.2)
[2018-02-06] MEDS ORDERED: WARF-246 PO (08:55)
[2018-02-06] MEDS ORDERED: XPNINS31 PO (08:55)
[2018-02-06] MEDS ORDERED: SIMV-151 PO (08:55)
--- NOTE | 2018-02-06 09:08 | History and Physical ---
History & Physical Date & Time of Service: Feb 06, 2018 at 09:08 . Chief Complaint: shortness of breath . Primary Care Physician: Tariq Toussaint M.D. . History of Present Illness Source: patient, clinic records, hospital records 87-year-old female followed by Dr. Toussaint for Family Medicine and Tariq Salazar PA-C for Cardiology. History of ischemic heart disease, chronic atrial fibrillation, COPD, and other problems noted below. Noted acute dyspnea this morning around 0500 while ambulating from bed to bathroom. No chest pain. Nonproductive cough. Dyspnea associated with sweats, but no fever. She was brought to the ED. O2 saturations were in the 70s on room air. Received O2, intravenous methylprednisolone, nebulizer treatment, IV furosemide , and nitroglycerin ointment with improvement of her symptoms. Good urine output after receiving furosemide. Comfortable at time of my assessment. . Past Medical/Surgical History Chronic and Resolved Medical Problems: (1) Atrial fibrillation Status: Chronic (2) Chronic kidney disease (CKD), stage III Status: Chronic (3) COPD (chronic obstructive pulmonary disease) Status: Chronic (4) Coronary artery disease Status: Chronic (5) Depression Status: Chronic (6) Dyslipidemia Status: Chronic (7) Hypertension Status: Chronic (8) Warfarin anticoagulation Status: Chronic Surgical Problems: (1) Status post cataract extraction Status: Chronic (2) Status post cholecystectomy Status: Chronic . Family History FATHER Stroke MOTHER Stroke Social History Smoking Status: Never Smoker Alcohol Use: none Drug Use: none Marital Status: Housing status: lives alone Immunizations History of Influenza Vaccine: Yes History of Tetanus Vaccine?: Yes History of Pneumococcal: Yes History of Hepatitis B Vaccine: No Allergies Coded Allergies: Propoxyphene (Unverified Allergy, Unknown, 02/06/18) Tramadol (Unverified Allergy, Unknown, DELIRIUM, 02/06/18) hallucinations Indomethacin (Unverified Adverse Reaction, Unknown, GASTRIC UPSET, 02/06/18) Rofecoxib (Unverified Adverse Reaction, Unknown, DRY MOUTH, 02/06/18) Home Medications Scheduled Aspirin (Aspirin Ec), 81 MG PO DAILY Calcium Carbonate-Cholecalcife (Caltrate 600+D), 1 TAB PO BID Escitalopram (Lexapro), 10 MG PO DAILY Fluticasone Furoate-Vilanterol (Breo Ellipta), 1 INHA NA DAILY Furosemide (Lasix), 20 MG PO Q2D Metoprolol Tartrate (Lopressor) (Lopressor), 50 MG PO BID Nitroglycerin (Nitrostat), 0.4 MG UT PRN Omeprazole (Prilosec), 20 MG PO DAILY Simvastatin (Simvastatin), 20 MG PO DAILY Warfarin Sodium (Warfarin Sodium), 2.5 MG PO [id number] Scheduled PRN Bisacodyl (Dulcolax), 10 MG MT UD PRN for Constipation Levalbuterol (Levalbuterol HCl), 3 ML PO Q4H PRN for Wheezing Review of Systems CONSTITUTIONAL no fever no weight loss EYES no acute visual changes EARS, NOSE, MOUTH, AND THROAT + hearing loss no sinus symptoms no pharyngitis CARDIOVASCULAR as noted above in HPI RESPIRATORY as noted above in HPI GASTROINTESTINAL no nausea or vomiting no diarrhea no constipation no melena or hematochezia GENITOURINARY no dysuria no hematuria MUSCULOSKELETAL + chronic arthritic pain no myalgias INTEGUMENTARY no rash no new / changing lesions NEUROLOGIC no headaches no focal neurologic symptoms ENDOCRINE no polyuria or polydipsia HEMATOLOGIC / LYMPHATIC + bruises easily no adenopathy . Physical Exam Vital Signs Date Time Temp Pulse Resp B/P (MAP) Pulse Ox O2 Delivery O2 Flow Rate FiO2 02/06/18 08:36 83 26 02/06/18 08:31 140/84 02/06/18 08:06 85 21 99 02/06/18 08:01 139/88 02/06/18 07:50 142/70 02/06/18 07:43 98 Nasal Cannula 6.0 02/06/18 07:43 98 Room Air 6.0 02/06/18 07:36 79 25 97 02/06/18 07:06 84 28 02/06/18 06:50 90 Nasal Cannula 6.0 02/06/18 06:48 36.5 81 30 171/94 90 Nasal Cannula 6.0 02/06/18 06:47 102 02/06/18 06:43 171/94 CONSTITUTIONAL vital signs as noted above elderly female, no acute distress at time of my assessment EYES conjunctivae clear; lids normal pupils equal and reactive to light EARS, NOSE, MOUTH AND THROAT external inspection of ears and nose unremarkable hard of hearing upper partial plate oropharynx clear NECK no masses; trachea midline thyroid normal RESPIRATORY bibasilar rales diffuse wheezing CARDIOVASCULAR irregularly irregular no murmur, gallop, rub appreciated + JVD carotid arteries 2/2 abdominal aorta not palpable pedal pulses diminished capillary refill toes about 2 seconds trace pretibial edema GASTROINTESTINAL normal bowel sounds, soft, nontender; no palpable masses no hepatomegaly; no splenomegaly LYMPHATIC no cervical adenopathy MUSCULOSKELETAL no cyanosis; no digital clubbing no calf tenderness motor strength extremities grossly intact SKIN no rash warm and dry NEUROLOGIC PERRL, EOMI, no facial palsy, no dysarthria, tongue midline patellar DTR's 1/2 PSYCHIATRIC oriented to person, place, time mood and affect appropriate . Diagnostics Laboratory Results Results Past 24 Hours Test 02/06/18 07:35 02/06/18 08:15 Range/Units White Blood Count 8.99 4.8-10.8 K/uL Red Blood Count 3.88 4.2-5.4 M/uL Hemoglobin 9.3 12.0-16.0 g/dL Hematocrit 32.0 37-47 % Mean Corpuscular Volume 82.5 80-100 fL Mean Corpuscular Hemoglobin 24.0 25-34 pg Mean Corpuscular Hemoglobin Concent 29.1 32-36 g/dl Platelet Count 173 130-400 K/uL Mean Platelet Volume 10.0 7.4-10.4 fL Neutrophils (%) (Auto) 82.8 % Lymphocytes (%) (Auto) 8.7 % Monocytes (%) (Auto) 6.2 % Eosinophils (%) (Auto) 1.9 % Basophils (%) (Auto) 0.2 % Neutrophils # (Auto) 7.44 1.4-6.5 K/uL Lymphocytes # (Auto) 0.78 1.2-3.4 K/uL Monocytes # (Auto) 0.56 0.11-0.59 K/uL Eosinophils # (Auto) 0.17 0-0.5 K/uL Basophils # (Auto) 0.02 0-0.2 K/uL RDW Standard Deviation 55.8 36.4-46.3 fL RDW Coefficient of Variation 18.5 11.5-14.5 % Immature Granulocyte % (Auto) 0.2 % Immature Granulocyte # (Auto) 0.02 0.00-0.02 K/uL Prothrombin Time 20.8 9.0-12.0 SECONDS Prothromb Time International Ratio 2.0 0.9-1.1 Activated Partial Thromboplast Time 31.6 21.0-31.0 SECONDS Partial Thromboplastin Ratio 1.2 Sodium Level 141 136-145 mmol/L Potassium Level 4.3 3.5-5.1 mmol/L Chloride Level 108 98-107 mmol/L Carbon Dioxide Level 26 21-32 mmol/L Anion Gap 8.0 3-11 mmol/L Blood Urea Nitrogen 22 7-18 mg/dl Creatinine 0.96 0.60-1.20 mg/dl Est Creatinine Clear Calc Drug Dose 45.5 ml/min Estimated GFR () 60.8 Estimated GFR (Non- 52.4 BUN/Creatinine Ratio 22.4 10-20 Random Glucose 123 70-99 mg/dl Calcium Level 9.2 8.5-10.1 mg/dl Total Bilirubin 0.7 0.2-1 mg/dl Aspartate Amino Transf (AST/SGOT) 20 15-37 U/L Alanine Aminotransferase (ALT/SGPT) 17 12-78 U/L Alkaline Phosphatase 71 45-117 U/L Total Creatine Kinase 47 26-192 U/L Creatine Kinase MB 1.4 0.5-3.6 ng/ml Creatine Kinase MB Ratio 3.0 0-3.0 Troponin I < 0.015 0-0.045 ng/ml Pro-B-Type Natriuretic Peptide 2268 0-1800 pg/ml Total Protein 6.8 6.4-8.2 gm/dl Albumin 3.4 3.4-5.0 gm/dl Globulin 3.4 2.5-4.0 gm/dl Albumin/Globulin Ratio 1.0 0.9-2 Urine Color YELLOW Urine Appearance CLEAR CLEAR Urine pH 6.0 4.5-7.5 Urine Specific [place] 1.022 1.000-1.030 Urine Protein TRACE NEG Urine Glucose (UA) NEG NEG Urine Ketones NEG NEG Urine Occult Blood NEG NEG Urine Nitrite NEG NEG Urine Bilirubin NEG NEG Urine Urobilinogen NEG NEG Urine Leukocyte Esterase NEG NEG Urine WBC (Auto) 1-5 0-5 /hpf Urine RBC (Auto) 0-4 0-4 /hpf Urine Hyaline Casts (Auto) 1-5 0-5 /lpf Urine Epithelial Cells (Auto) 10-20 0-5 /lpf Urine Bacteria (Auto) NEG NEG Microbiology Results 02/06/18 Blood Culture, Received Pending 02/06/18 Blood Culture, Received Pending 02/06/18 Urine Culture, Received Pending Diagnostic Radiology Chest x-ray reviewed by the undersigned. Cardiomegaly, CHF. . EKG EKG performed at 0659 reviewed and demonstrated atrial fibrillation at 90/ minute, left axis deviation, left bundle branch block with associated repolarization abnormalities. . Impression Assessment and Plan ACUTE HYPOXIC RESPIRATORY FAILURE Presented to ED with acute dyspnea. O2 saturations were in the 70s on room air. Patient was very tachypneic. Hypoxia most likely secondary to CHF, but COPD probably also a contributing factor. Pulmonary embolism very unlikely given chronic anticoagulation on warfarin with therapeutic INR. Follow oxygen saturation and titrate supplemental oxygen as necessary. CHF Exam, chest x-ray, elevated BNP consistent with CHF. Echocardiogram 07/24/17 demonstrated normal left ventricular systolic function with evidence of diastolic dysfunction. Probable acute on chronic left ventricular diastolic heart failure. Has been on different doses of furosemide, most recently 20 mg every other day. Received furosemide 40 mg IV in ED with brisk diuresis. Titrate diuretic dosing after clinical reassessment and review of labs tomorrow. CORONARY ARTERY DISEASE Continue aspirin and metoprolol. Check serial troponins. CHRONIC ATRIAL FIBRILLATION Rate controlled. Continue metoprolol and warfarin. HYPERTENSION Continue metoprolol. Follow and titrate therapy. COPD Suspect that bronchospasm upon arrival to ED secondary to CHF. Continue usual pulmonary meds. NOCTURNAL HYPOXIA Continue O2 2 LPM at night. VTE PROPHYLAXIS Continue warfarin. RESUSCITATION STATUS Discussed with patient. She has a living will. She prefers a natural passing and does not want CPR, mechanical ventilation, or other extraordinary measures undertaken in the event of a cardiopulmonary arrest. Resuscitation status, therefore, "level 5" (DNR). DISPOSITION Admit to Telemetry Unit. Family Medicine follow-up with Dr. Toussaint. Cardiology follow-up with Tariq Salazar PA-C. . Resuscitation Status VTE Prophylaxis Will order VTE Prophylaxis: Yes
[2018-02-06] MEDS ORDERED: NITROGLYCERIN 0.4 MG SL PER TAB CHARGE UT SCH (09:30)
[2018-02-06] MEDS ORDERED: LEVALBUTEROL 0.31MG/3 ML VIAL INH PRN (09:30)
[2018-02-06] MEDS ORDERED: METOPROLOL TARTRATE 50 MG TAB PO ONE (10:30)
[2018-02-06] MEDS ORDERED: ESCITALOPRAM OXALATE 10 MG TAB PO ONE (10:30)
[2018-02-06] MEDS ORDERED: ASPIRIN 81 MG ECTAB PO ONE (10:30)
[2018-02-06] MEDS ORDERED: POTASSIUM CHLORIDE 20 MEQ TABCR PO ONE (11:00)
[2018-02-06 13:12] LABS: POTASSIUM 4.4 mmol/L (3.5-5.1)
[2018-02-06] MEDS: ACETAMINOPHEN 325 MG TAB PO PRN (14:03)
[2018-02-06] MEDS: WARFARIN SOD 5 MG TAB PO SCH (17:04)
[2018-02-06] MEDS: SIMVASTATIN 20 MG TAB PO SCH (21:01)
[2018-02-06] MEDS: METOPROLOL TARTRATE 50 MG TAB PO SCH (21:02)
[2018-02-07] VITALS (8 sets, daily range): BP systolic 104–143; BP diastolic 43–81; PULSE 65–75; TEMP 36.4–36.8; O2SAT 91–98
[2018-02-07] MEDS ORDERED: VANCOMYCIN IV 2,000 MG in SODIUM CHLORIDE 0.9% 500ML 500 ML IV STA (03:06)
[2018-02-07] MEDS ORDERED: VANCOMYCIN CONSULT ACTIVE PRN (03:15)
[2018-02-07 07:18] LABS: HEMATOCRIT 29.7 % (37-47); HEMOGLOBIN 8.6 g/dL (12.0-16.0); MEAN CELL VOLUME 80.9 fL (80-100); MEAN CORPUSCULAR HEMOGLOBIN 23.4 pg (25-34); MEAN PLATELET VOLUME 10.3 fL (7.4-10.4); NUCLEATED RED BLOOD CELL ABS 0.02 K/uL (0-0); PLATELET COUNT 190 K/uL (130-400); RED CELL DISTRIBUTION WIDTH CV 18.2 % (11.5-14.5); RED CELL DISTRIBUTION WIDTH SD 53.4 fL (36.4-46.3)
[2018-02-07 07:22] LABS: INR 2.2 (0.9-1.1)
--- NOTE | 2018-02-07 07:42 | DIAGNOSTIC IMAGING REPORT ---
CHEST ONE VIEW PORTABLE HISTORY: Short of breath. COMPARISON: Chest 02/06/2018. FINDINGS: Pulmonary edema has improved. No pneumothorax. The heart remains mildly enlarged. Small bilateral pleural effusions and left basilar airspace opacities persist. IMPRESSION: Slight improvement in the pulmonary edema. Small bilateral pleural effusions and left basilar airspace opacities persist. Electronically signed by: Eligio Toledo M.D. 02/07/2018 7:41 AM Dictated Date/Time: 02/07/2018 7:41 AM
[2018-02-07] MEDS: ESCITALOPRAM OXALATE 10 MG TAB PO SCH (07:45)
[2018-02-07] MEDS: ASPIRIN 81 MG ECTAB PO SCH (07:45)
[2018-02-07] MEDS: PANTOprazole SOD 40 MG TAB PO SCH (07:46)
[2018-02-07] MEDS: METOPROLOL TARTRATE 50 MG TAB PO SCH ×2 (07:46→21:07)
[2018-02-07 07:48] LABS: CALCIUM 8.5 mg/dl (8.5-10.1); CREATININE 0.99 mg/dl (0.60-1.20); POTASSIUM 4.5 mmol/L (3.5-5.1)
--- NOTE | 2018-02-07 08:49 | Pharmacy Progress Note ---
Pharmacy Abx Initial Consult Date of Service Feb 07, 2018. Pharmacy Dosing Scope Date of Consult: 02/07/18 Consultation requested by: Dr. Hathaway Pharmacy is consulted to initiate Vancomcyin IV dosing therapy, order appropriate labs and adjust drug dose/frequency. Subjective The patient is a 87 year old female admitted on Feb 06, 2018 at 09:08. Objective Height (Feet): 5 Height (Inches): 7.00 Weight (Kilograms): 85.000 (BMI 29.3) Vital Signs (Past 12Hrs) Vital Signs Past 12 Hours Date Time Temp Pulse Resp B/P (MAP) Pulse Ox O2 Delivery O2 Flow Rate FiO2 02/07/18 06:59 36.8 71 20 143/81 (101) 96 Nasal Cannula 2.0 02/07/18 03:49 36.6 75 20 122/69 (86) 96 Nasal Cannula 2.0 02/06/18 23:50 36.5 84 18 115/64 (81) 94 Nasal Cannula 2.0 Lab Results (24Hrs) Laboratory Tests (24 Hours) Test 02/07/18 06:36 White Blood Count 10.40 K/uL (4.8-10.8) Item Value Date Time Creatinine 0.99 mg/dl 02/07/18 0636 Est Creatinine Clear Calc Drug Dose 43.2 ml/min 02/07/18 0636 Micro Results Date/Time Source Procedure Growth Status 02/06/18 07:35 Blood Blood Culture - Preliminary Gram Positive Cocci Resulted 02/06/18 07:35 Blood Blood Culture - Preliminary Gram Positive Cocci Resulted 02/06/18 08:15 Urine,Catheterized Urine Culture Pending Received Assessment & Plan Assessment 87 year old female admitted due to shortness of breath upon ambulation. States she has nonproductive cough. [place] better after breathing treatment in ambulance. Has COPD and history of bronchitis and pneumonia. Wears O2 at night only. Blood culture grew Gm + cocci in both cultures Plan Vancomycin for treatment of bacteremia Vancomycin IV * Estimated Pkinetic parameters: Vd 0.7 L/kg; Jose ~ 0.040 hr-1; T1/2 17.3 hrs; CrCl 43.2 * Loading dose: 2000 mg (~24 mg/kg) * Maintenance dose: 1250 mg IV (~15 mg/kg) every 20 hours * Goal trough level for bacteremia : 15 to 20 mcg/mL * Trough/Random level ordered for 02/10/18 @1530 * Ordered MRSA nasal swab. * Patient is slightly above baseline SCr. May need to adjust frequency if renal function improves to baseline. Pharmacy will continue to follow and will adjust dose/frequency as necessary. Thank you.
--- NOTE | 2018-02-07 09:48 | Progress Note ---
Medicine Progress Note Date & Time of Visit: Feb 07, 2018 at 09:42. Subjective seen sitting up in chair, comfortable watching TV states she feels better compared to yesterday off O2 supplement, denies dyspnea, has occasional cough no chest pain, dizziness, palpitations denies fever/chills no other symptoms Objective Last 8 Hrs Date Time Temp Pulse Resp B/P (MAP) Pulse Ox O2 Delivery O2 Flow Rate FiO2 02/07/18 06:59 36.8 71 20 143/81 (101) 96 Nasal Cannula 2.0 02/07/18 03:49 36.6 75 20 122/69 (86) 96 Nasal Cannula 2.0 Physical Exam: General- oriented x 3, not in distress, speaks in sentences with no effort Head- atraumatic Eyes-anicteric ENT- oropharynx clear Neck- supple, no JVD Lungs- clear to auscultation bilaterally, no rales/wheezes Heart-normal rate, irregularly irregular rhythm; no murmur Abdomen- normal bowel sounds, soft, nontender Extremities- trace pretibial edema, no calf tenderness; peripheral pulses intact Neuro- alert, oriented x 2 decreased hearing otherwise no gross focal deficits Skin- warm & dry Laboratory Results: Last 24 Hours Test 02/06/18 12:37 02/06/18 20:18 02/07/18 06:36 Potassium Level 4.4 mmol/L 4.4 mmol/L 4.5 mmol/L Troponin I < 0.015 ng/ml Chemistry Specimen Hemolysis White Blood Count 10.40 K/uL Red Blood Count 3.67 M/uL Hemoglobin 8.6 g/dL Hematocrit 29.7 % Mean Corpuscular Volume 80.9 fL Mean Corpuscular Hemoglobin 23.4 pg Mean Corpuscular Hemoglobin Concent 29.0 g/dl RDW Standard Deviation 53.4 fL RDW Coefficient of Variation 18.2 % Platelet Count 190 K/uL Mean Platelet Volume 10.3 fL Nucleated RBC Absolute Count (auto) 0.02 K/uL Nucleated Red Blood Cells % 0.2 % Prothrombin Time 22.6 SECONDS Prothromb Time International Ratio 2.2 Sodium Level 136 mmol/L Chloride Level 104 mmol/L Carbon Dioxide Level 24 mmol/L Anion Gap 8.0 mmol/L Blood Urea Nitrogen 27 mg/dl Creatinine 0.99 mg/dl Est Creatinine Clear Calc Drug Dose 43.2 ml/min Estimated GFR () 58.6 Estimated GFR (Non- 50.5 BUN/Creatinine Ratio 27.5 Random Glucose 120 mg/dl Calcium Level 8.5 mg/dl Magnesium Level 1.9 mg/dl Assessment & Plan ACUTE HYPOXIC RESPIRATORY FAILURE secondary to CHF Presented to ED with acute dyspnea. O2 saturations were in the 70s on room air. Patient was very tachypneic. Hypoxia most likely secondary to CHF, but COPD probably also a contributing factor. -- Off oxygen supplement CHF, ACUTE ON CHRONIC DIASTOLIC TYPE Exam, chest x-ray, elevated BNP consistent with CHF. Echocardiogram 07/24/17 demonstrated normal left ventricular systolic function with evidence of diastolic dysfunction. Has been on different doses of furosemide, most recently 20 mg every other day. Received furosemide 40 mg IV in ED with brisk diuresis. - negative 2 L fluid balance so far Cardiology consulted POSSIBLE GRAM POSITIVE BACTEREMIA (+) 2 bottles ff up final cultures on empiric Vanco IV ID consulted CORONARY ARTERY DISEASE Continue aspirin and metoprolol. Troponins negative CHRONIC ATRIAL FIBRILLATION Rate controlled. INR 2.2 Continue metoprolol and warfarin. HYPERTENSION Continue metoprolol. COPD Suspect that bronchospasm upon arrival to ED secondary to CHF. Continue usual pulmonary meds. NOCTURNAL HYPOXIA Continue O2 2 LPM at night. VTE PROPHYLAXIS Continue warfarin. RESUSCITATION STATUS Discussed with patient. She has a living will. She prefers a natural passing and does not want CPR, mechanical ventilation, or other extraordinary measures undertaken in the event of a cardiopulmonary arrest. Resuscitation status, therefore, "level 5" (DNR). DISPOSITION pending may need IV antibiotics depending on blood culture results usually lives alone at home if going home will need home health services Family Medicine follow-up with Dr. Toussaint. Cardiology follow-up with Tariq Salazar PA-C. . Current Inpatient Medications: Current Inpatient Medications Medications (Trade) Dose Ordered Sig/Michael Route Start Time Stop Time Status Last Admin Dose Admin Acetaminophen (Tylenol Tab) 650 mg Q4H PRN PO 02/06/18 09:15 03/08/18 09:14 02/06/18 14:03 650 MG Aspirin (Ecotrin Tab) 81 mg DAILY PO 02/07/18 09:00 03/09/18 08:59 02/07/18 07:45 81 MG Escitalopram Oxalate (Lexapro Tab) 10 mg DAILY PO 02/07/18 09:00 03/09/18 08:59 02/07/18 07:45 10 MG Levalbuterol (Xopenex 0.31MG/ 3ML Neb) 0.31 mg Q4H PRN INH 02/06/18 09:30 03/08/18 09:29 Metoprolol Tartrate (Lopressor Tab) 50 mg BID PO 02/06/18 21:00 03/08/18 20:59 02/07/18 07:46 50 MG Nitroglycerin (Nitrostat Tab) 0.4 mg PRN UT 02/06/18 09:30 03/08/18 09:29 Simvastatin (Zocor Tab) 20 mg HS PO 02/06/18 21:00 03/08/18 20:59 02/06/18 21:01 20 MG Warfarin Sodium (Coumadin Tab) 2.5 mg [id number]@1600 PO 02/06/18 16:00 03/08/18 15:59 02/06/18 17:04 2.5 MG Miscellaneous Information (Order Awaiting Action) 1 ea QS N/A 02/06/18 16:00 03/08/18 15:59 Pantoprazole Sodium (Protonix Tab) 40 mg QAM PO 02/07/18 09:00 03/09/18 08:59 02/07/18 07:46 40 MG Vancomycin HCl (Consult) 1 ea UD PRN N/A 02/07/18 03:15 03/09/18 03:14 Vancomycin HCl 1250 mg/Sodium Chloride 275 ml @ 125 mls/hr Q20H IV 02/08/18 00:00 02/22/18 00:00
--- NOTE | 2018-02-07 10:32 | Progress Note ---
Progress Note Date of Service Feb 07, 2018. Progress Note ID Consult Dictated #[id number] A/P: 1. + blood cultures -? contaminant, clinically stable -Continue vanco, follow final cultures, repeat x 2 -Thank you
[2018-02-07] MEDS ORDERED: FUROSEMIDE INJ 20 MG in SYRINGE 0 ML IV ONE (10:45)
[2018-02-07] MEDS ORDERED: ISOSORBIDE MONONITRATE 30 MG TABCR PO ONE (10:45)
--- NOTE | 2018-02-07 11:02 | CARDIOLOGY CONSULTATION ---
DATE OF CONSULTATION: 02/07/2018 REFERRING PHYSICIAN: Javier Camarillo MD INDICATIONS: Acute respiratory distress and hypoxia. HISTORY OF PRESENT ILLNESS: Patient is an 87-year-old female whose history is notable for 1. Chronic atrial fibrillation. 2. Past atrial tachycardias. 3. Chronic left bundle-branch block. 4. Mild atherosclerotic coronary artery disease by a remote cardiac catheterization in 2003 with 30% proximal LAD. 5. History of past diastolic congestive heart failure. 6. History of chronic obstructive lung disease with nocturnal hypoxia. 7. Hypertension. 8. Hyperlipidemia. Patient presents in this admission noting having been in her usual state of health over until the date of admission, noted awakened early in the morning with some mild breathlessness, and when ambulating from the bed to bathroom, became acutely diaphoretic and markedly dyspneic. She presented to the Emergency Room where she was found to be significantly hypoxic with O2 saturations in the 70s. She was treated with IV Lasix, IV prednisone, nebulizer, and topical nitrates with significant hypertension noted on observation. She had noted no recent fevers or chills, noted no worsening cough, denied any chest pains, noted no tachypalpitations, syncope, or near syncope. She had been taking her medications as prescribed, with usual diuretic dosing of furosemide 20 mg every other day, she has been compliant with medications. Notes no dietary or salt indiscretion. Notes no change in sleep patterns. She is sedentary about her home. ALLERGIES: INDOMETHACIN, PROPOXYPHENE, ROFECOXIB, AND TRAMADOL. MEDICATIONS: Prior to hospitalization were aspirin 81 mg per day, calcium carbonate, cholecalciferol 1 tablet p.o. b.i.d., Lexapro 10 mg p.o. daily, Breo Ellipta inhaler, furosemide 20 mg every other day, levalbuterol nebulizer, metoprolol 50 mg b.i.d., omeprazole 20 mg p.o. daily, simvastatin 20 mg p.o. daily, warfarin variable dosing with current dosing 2.5 mg on Wednesday, Wednesday, Wednesday, , Wednesday, Wednesday. PAST SURGICAL HISTORY: Notable for prior cholecystectomy and cataract surgeries. FAMILY HISTORY: Notable for cerebrovascular disease. SOCIAL HISTORY: Patient is a nonsmoker and nondrinker. She follows routinely with Dr. Toussaint. PHYSICAL EXAMINATION: GENERAL: Patient is a pleasant and age-appropriate female, denying complaints this morning, notes she feels "much better", notes no chest pain, no shortness of breath. Sitting upright in a chair at bedside. VITAL SIGNS: Heart rate 71, blood pressure is 143/84, I's and O's are notable for approximately 2.5 L diuresis overnight. HEENT: Normocephalic and atraumatic. NECK: Thin. There is no distinct jugular venous distention. There are no carotid bruits. RESPIRATORY: Lungs reveal diminished breath sounds at the left base with few scattered crackles, basilar. CARDIOVASCULAR: Irregularly irregular. There is no S3 gallop. GASTROINTESTINAL: Abdomen is soft and nontender. There is no palpable hepatosplenomegaly. There is no hepatojugular reflux. MUSCULOSKELETAL: Extremities reveal 1 to 2+ lower extremity edema with stasis edema. EKG reveals atrial fibrillation with left bundle-branch block configuration. IMAGING: Chest x-ray reveals increased interstitial markings consistent with volume overload. LABORATORY DATA: White cell count on presentation was 8.9, hemoglobin is 9.3, INR is 2.2. Sodium is 136, potassium is 4.5, chloride is 104, bicarbonate is 24, BUN is 27, creatinine is 0.99. Troponins serially x2 were negative. IMPRESSION: Patient is an 87-year-old female with a history of past mixed respiratory difficulties with exacerbation of lung disease as well as underlying diastolic heart failure. Patient appears to have an acute exacerbation, multifactorial etiology. Blood cultures are positive, however, today, but acute infectious process was not initially a concern. She has been begun on antibiotic therapies as well as IV diuretics. Plan will be to give an additional 20 mg IV furosemide this morning, then likely resume oral dosing in the a.m. Oral nitrates will be added to regimen given good clinical response to hypertension on acute presentation. We will continue to follow patient as her clinical course progresses. Underlying ischemic heart disease is not completely excluded given abrupt onset of symptoms, diaphoresis complaints, but negative troponins were noted on admission. Medication adjustments as noted above. The patient appears agreeable with plan.
--- NOTE | 2018-02-07 12:27 | INFECT. DISEASE CONSULTATION ---
DATE OF CONSULTATION: 02/07/2018 HISTORY OF PRESENT ILLNESS: This is an 87-year-old female who was admitted to the hospital for shortness of breath. She currently denies any shortness of breath on my examination. She is currently sitting out of bed to chair and states she is feeling significantly better. She denies any cough, shortness of breath, wheezing or chest pain. She has no abdominal pain. She denies any nausea, vomiting or diarrhea. She has no urinary symptoms. A Estrada catheter was placed in the Emergency Room, but she normally does not have a Estrada catheter at home. As part of her workup, she was found to be without leukocytosis and afebrile in the ER. Blood cultures were obtained and are growing gram-positive cocci in 2/2 sets. Urine culture is pending at this time. UA was unremarkable in the ER with 1-5 wbc's and no bacteria. She denies any fevers or chills at home. She has been afebrile since admission to the hospital. She is hemodynamically stable. She was placed empirically on vancomycin and is tolerating this well. Her remaining review of systems is reviewed and unremarkable. PAST MEDICAL HISTORY: Significant for ischemic heart disease, AFib, COPD, chronic kidney disease, coronary artery disease, depression, high cholesterol, hypertension, chronic anticoagulation. PAST SURGICAL HISTORY: Significant for cholecystectomy and cataract surgery. FAMILY HISTORY: Noncontributory. SOCIAL HISTORY: Negative for tobacco use, alcohol use or drug use. ALLERGIES: SHE HAS ALLERGIES TO PROPOXYPHENE, TRAMADOL, AND INDOMETHACIN. CURRENT MEDICATIONS: Imdur, vancomycin, Lasix, Ecotrin, Lexapro, Protonix, vancomycin, Lopressor, Coumadin, Zocor, Xopenex and Tylenol. PHYSICAL EXAMINATION: VITAL SIGNS: She is afebrile, pulse 71, respiratory rate 20, blood pressure 143/81, oxygen saturation is 96% on 2 liters. GENERAL: She is awake, alert and oriented x3. She is in no acute distress. HEENT: Mucous membranes are moist. Extraocular muscles are intact. HEART: Without murmur. LUNGS: Clear. ABDOMEN: Soft. Estrada catheter is in place with yellow urine. There is no edema. SKIN: Without rash. LABORATORY STUDIES: CBC today: White blood cell count 10.4, hemoglobin 8.6, platelets 190. Chemistry panel: Sodium 136, potassium 4.5, chloride 104, bicarbonate 24, BUN 27, creatinine 0.9, glucose 120. UA: Negative. Blood cultures with gram-positive cocci. Urine culture is pending. Chest x-ray done this morning shows slight improvement in pulmonary edema. ASSESSMENT AND PLAN: Positive blood culture. She will remain on vancomycin. Blood cultures will be repeated. We will await ID and sensitivity. She does not clinically appear to be infected and I wonder if this is not a skin contamination, but we will follow final sensitivities. Thank you for this consultation.
[2018-02-07] MEDS: WARFARIN SOD 5 MG TAB PO SCH (16:32)
[2018-02-07] MEDS: ACETAMINOPHEN 325 MG TAB PO PRN (19:44)
[2018-02-07] MEDS: SIMVASTATIN 20 MG TAB PO SCH (21:06)
[2018-02-08] MEDS ORDERED: VANCOMYCIN IV 1,250 MG in SODIUM CHLORIDE 0.9% 250ML 250 ML IV SCH ×2
[2018-02-08 04:35] VITALS: BP 139/77; PULSE 70; TEMP 36.4; O2SAT 97
[2018-02-08 05:57] LABS: HEMATOCRIT 30.4 % (37-47); HEMOGLOBIN 8.8 g/dL (12.0-16.0); MEAN CELL VOLUME 81.7 fL (80-100); MEAN CORPUSCULAR HEMOGLOBIN 23.7 pg (25-34); MEAN CORPUSCULAR HGB CONC 28.9 g/dl (32-36); MEAN PLATELET VOLUME 9.7 fL (7.4-10.4); PLATELET COUNT 177 K/uL (130-400); RED CELL DISTRIBUTION WIDTH CV 18.3 % (11.5-14.5); RED CELL DISTRIBUTION WIDTH SD 54.4 fL (36.4-46.3); WHITE BLOOD COUNT 9.81 K/uL (4.8-10.8)
[2018-02-08 06:09] LABS: CALCIUM 8.6 mg/dl (8.5-10.1); CREATININE 1.08 mg/dl (0.60-1.20); POTASSIUM 4.2 mmol/L (3.5-5.1)
[2018-02-08 06:18] LABS: BASO % 0.4 %; BASO ABS # 0.04 K/uL (0-0.2); EOS % 1.6 %; EOS ABS # 0.16 K/uL (0-0.5); IG# 0.02 K/uL (0.00-0.02); LYMPH ABS # 1.47 K/uL (1.2-3.4); MONO ABS # 0.98 K/uL (0.11-0.59); NEUT % 72.8 %; NEUT ABS # 7.14 K/uL (1.4-6.5)
[2018-02-08 07:33] VITALS: BP 155/78; PULSE 72; TEMP 36.4; O2SAT 90
[2018-02-08] MEDS: METOPROLOL TARTRATE 50 MG TAB PO SCH ×2 (07:43→20:17)
[2018-02-08] MEDS: ISOSORBIDE MONONITRATE 30 MG TABCR PO SCH (07:44)
[2018-02-08] MEDS: ESCITALOPRAM OXALATE 10 MG TAB PO SCH (07:44)
[2018-02-08] MEDS: ASPIRIN 81 MG ECTAB PO SCH (07:44)
[2018-02-08] MEDS: PANTOprazole SOD 40 MG TAB PO SCH (07:44)
[2018-02-08] MEDS: FLUTICASONE FUROATE-VILANTEROL 200/25 MCG INH INH SCH (07:45)
--- NOTE | 2018-02-08 10:35 | PROGRESS NOTE ---
DATE: 02/08/2018 The patient seen and examined. Chart, medications, telemetry reviewed. SUBJECTIVE: The patient clinically feels improved this morning. Denies fevers, chills, or productive cough. Notes no tenderness at IV sites. Notes no orthopnea. Leg edema is improved. Breathing status is better. She is on room air without oxygen supplementation currently. OBJECTIVE: VITAL SIGNS: Heart rate 72, blood pressure is 155/78. NECK: Thick. There is no distinct jugular venous distention. There are no carotid bruits. LUNGS: Reveal crackles basilar, left slightly greater than right. CARDIOVASCULAR: Irregularly irregular. There is no S3 gallop. ABDOMEN: Soft. EXTREMITIES: Without cyanosis or clubbing. There is 1+ lower extremity edema. LABORATORY DATA: INR is 2.2 yesterday. Today electrolytes; sodium 139, potassium 4.2, chloride 105, bicarbonate 27, BUN 32, creatinine 1.08. Hemoglobin is 8.8. IMPRESSION: Complex 87-year-old female followed for history of chronic atrial fibrillation, left bundle branch block, [id number] coronary atherosclerosis, past history of diastolic heart failure, and obstructive lung disease, admitted with decompensated acute on chronic respiratory failure secondary to diastolic heart failure, superimposed obstructive lung disease not completely excluded. The patient has demonstrated improvement in hospital with IV diuresis. Blood cultures have returned positive question contaminant. PLAN: Continue diuretics with increased dose of oral furosemide today. Watch carefully for need for oxygen supplementation. As noted, oral nitrates have been added to regimen for aid in blood pressure management. Continue current dosing of prior cardiac medications metoprolol, simvastatin, and warfarin. Will follow in the hospital.
[2018-02-08] MEDS: ACETAMINOPHEN 325 MG TAB PO PRN (10:49)
[2018-02-08] MEDS ORDERED: FUROSEMIDE 40 MG TAB PO ONE (11:00)
[2018-02-08 11:17] VITALS: BP 126/70; PULSE 59; TEMP 36.4; O2SAT 93
--- NOTE | 2018-02-08 13:13 | Progress Note ---
Subjective Date of Service: Feb 08, 2018. 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 repepats pending. remains on vanco. afebrile. wbc nml. lasix dose adjusted. Problem List Medical Problems: (1) Cervical strain Status: Acute (2) Cervical strain Status: Acute (3) Closed traumatic displaced supracondylar fracture of humerus Status: Acute (4) Closed traumatic displaced supracondylar fracture of humerus Status: Acute (5) Congestive heart failure Status: Acute (6) Congestive heart failure Status: Acute (7) Congestive heart failure Status: Acute (8) Dehydration Status: Acute (9) Dehydration Status: Acute (10) Fall Status: Acute (11) Fall Status: Acute (12) Fall Status: Acute (13) Fall Status: Acute (14) Fall Status: Acute (15) Fall Status: Acute (16) Fall Status: Acute (17) Fall Status: Acute (18) Head injury Status: Acute (19) Head injury Status: Acute (20) Hypoxia Status: Acute (21) Hypoxia Status: Acute (22) Hypoxia Status: Acute (23) Laceration of lower extremity Status: Acute (24) Laceration of lower extremity Status: Acute (25) Respiratory failure, acute Status: Acute (26) Scalp hematoma Status: Acute (27) Scalp hematoma Status: Acute (28) Skin tear Status: Acute (29) Skin tear Status: Acute Objective Vital Signs Date Time Temp Pulse Resp B/P (MAP) Pulse Ox O2 Delivery O2 Flow Rate FiO2 02/08/18 11:17 36.4 59 20 126/70 (88) 93 02/08/18 08:30 Room Air 02/08/18 07:33 36.4 72 20 155/78 (103) 90 Room Air 02/08/18 04:35 36.4 70 18 139/77 (97) 97 Nasal Cannula 2.0 02/08/18 00:00 Nasal Cannula 2.0 02/07/18 23:30 36.4 73 18 115/68 (84) 98 Nasal Cannula 2.0 02/07/18 20:00 91 Room Air 02/07/18 19:15 36.5 69 18 105/64 (78) 91 Room Air 02/07/18 15:00 36.6 65 18 128/67 (87) 93 Room Air Laboratory Results Item Value Date Time Blood Culture - Preliminary Resulted 02/06/18 0735 Blood Coag Neg Staphylococcus Last 24 Hours Test 02/08/18 05:22 White Blood Count 9.81 K/uL Red Blood Count 3.72 M/uL Hemoglobin 8.8 g/dL Hematocrit 30.4 % Mean Corpuscular Volume 81.7 fL Mean Corpuscular Hemoglobin 23.7 pg Mean Corpuscular Hemoglobin Concent 28.9 g/dl Platelet Count 177 K/uL Mean Platelet Volume 9.7 fL Neutrophils (%) (Auto) 72.8 % Lymphocytes (%) (Auto) 15.0 % Monocytes (%) (Auto) 10.0 % Eosinophils (%) (Auto) 1.6 % Basophils (%) (Auto) 0.4 % Neutrophils # (Auto) 7.14 K/uL Lymphocytes # (Auto) 1.47 K/uL Monocytes # (Auto) 0.98 K/uL Eosinophils # (Auto) 0.16 K/uL Basophils # (Auto) 0.04 K/uL RDW Standard Deviation 54.4 fL RDW Coefficient of Variation 18.3 % Immature Granulocyte % (Auto) 0.2 % Immature Granulocyte # (Auto) 0.02 K/uL Red Blood Cell Morphology Unremarkable Sodium Level 139 mmol/L Potassium Level 4.2 mmol/L Chloride Level 105 mmol/L Carbon Dioxide Level 27 mmol/L Anion Gap 7.0 mmol/L Blood Urea Nitrogen 32 mg/dl Creatinine 1.08 mg/dl Est Creatinine Clear Calc Drug Dose 39.6 ml/min Estimated GFR () 52.7 Estimated GFR (Non- 45.5 BUN/Creatinine Ratio 29.3 Random Glucose 81 mg/dl Calcium Level 8.6 mg/dl Assessment and Plan (1) Positive blood culture Assessment & Plan: likely contaminant. If repeat cultures negative, would follow off of abx.
[2018-02-08 14:58] VITALS: BP 115/58; PULSE 73; TEMP 36.5; O2SAT 93
[2018-02-08] MEDS: WARFARIN SOD 5 MG TAB PO SCH (16:43)
[2018-02-08 19:15] VITALS: BP 112/61; PULSE 77; TEMP 36.5; O2SAT 93
[2018-02-08 19:44] VITALS: O2SAT 93
[2018-02-08] MEDS ORDERED: VANCOMYCIN IV 1,000 MG in SODIUM CHLORIDE 0.9% 250ML 250 ML IV SCH (20:00)
[2018-02-08] MEDS: SIMVASTATIN 20 MG TAB PO SCH (20:17)
--- NOTE | 2018-02-08 20:54 | Progress Note ---
Medicine Progress Note Date & Time of Visit: Feb 08, 2018 at 20:50. Subjective Sitting up in chair, comfortable States breathing is improving Denies cough, sputum No chest pain or palpitations Denies fever chills, urinary or bowel movement changes Denies other symptoms Objective Last 8 Hrs Date Time Temp Pulse Resp B/P (MAP) Pulse Ox O2 Delivery O2 Flow Rate FiO2 02/08/18 19:44 93 Room Air 02/08/18 19:15 36.5 77 18 112/61 (78) 93 Room Air 02/08/18 14:58 36.5 73 20 115/58 (77) 93 Room Air Physical Exam: General- oriented x 3, not in distress, speaks in sentences with no effort Head- atraumatic Eyes-anicteric Neck-no JVD Lungs- clear breath sounds bilaterally, no rales wheezes Heart-normal rate, irregularly irregular rhythm; no murmur Abdomen- normal bowel sounds, soft, nontender Extremities-mild pretibial edema, no calf tenderness; peripheral pulses intact Neuro- alert, oriented x 2 decreased hearing otherwise no gross focal deficits Skin- warm & dry Laboratory Results: Last 24 Hours Test 02/08/18 05:22 White Blood Count 9.81 K/uL Red Blood Count 3.72 M/uL Hemoglobin 8.8 g/dL Hematocrit 30.4 % Mean Corpuscular Volume 81.7 fL Mean Corpuscular Hemoglobin 23.7 pg Mean Corpuscular Hemoglobin Concent 28.9 g/dl Platelet Count 177 K/uL Mean Platelet Volume 9.7 fL Neutrophils (%) (Auto) 72.8 % Lymphocytes (%) (Auto) 15.0 % Monocytes (%) (Auto) 10.0 % Eosinophils (%) (Auto) 1.6 % Basophils (%) (Auto) 0.4 % Neutrophils # (Auto) 7.14 K/uL Lymphocytes # (Auto) 1.47 K/uL Monocytes # (Auto) 0.98 K/uL Eosinophils # (Auto) 0.16 K/uL Basophils # (Auto) 0.04 K/uL RDW Standard Deviation 54.4 fL RDW Coefficient of Variation 18.3 % Immature Granulocyte % (Auto) 0.2 % Immature Granulocyte # (Auto) 0.02 K/uL Red Blood Cell Morphology Unremarkable Sodium Level 139 mmol/L Potassium Level 4.2 mmol/L Chloride Level 105 mmol/L Carbon Dioxide Level 27 mmol/L Anion Gap 7.0 mmol/L Blood Urea Nitrogen 32 mg/dl Creatinine 1.08 mg/dl Est Creatinine Clear Calc Drug Dose 39.6 ml/min Estimated GFR () 52.7 Estimated GFR (Non- 45.5 BUN/Creatinine Ratio 29.3 Random Glucose 81 mg/dl Calcium Level 8.6 mg/dl Assessment & Plan ACUTE HYPOXIC RESPIRATORY FAILURE secondary to CHF Presented to ED with acute dyspnea. O2 saturations were in the 70s on room air. Patient was very tachypneic. Hypoxia most likely secondary to CHF, but COPD probably also a contributing factor. -- Off oxygen supplement CHF, ACUTE ON CHRONIC DIASTOLIC TYPE Exam, chest x-ray, elevated BNP consistent with CHF. Echocardiogram 07/24/17 demonstrated normal left ventricular systolic function with evidence of diastolic dysfunction. Has been on different doses of furosemide, most recently 20 mg every other day. Received furosemide 40 mg IV in ED with brisk diuresis. -Cardiology consulted Diuresing well Lasix 40 mg p.o. Monitor POSSIBLE GRAM POSITIVE [id number] staph (+) 2 bottles on empiric Vanco IV day #2 ID consulted Repeat blood cultures ordered if negative may DC antibiotics and monitor, CORONARY ARTERY DISEASE Continue aspirin and metoprolol. Troponins negative CHRONIC ATRIAL FIBRILLATION Rate controlled. INR 2.2 Continue metoprolol and warfarin. HYPERTENSION Continue metoprolol. COPD Suspect that bronchospasm upon arrival to ED secondary to CHF. Continue usual pulmonary meds. NOCTURNAL HYPOXIA Continue O2 2 LPM at night. VTE PROPHYLAXIS Continue warfarin. RESUSCITATION STATUS Discussed with patient. She has a living will. She prefers a natural passing and does not want CPR, mechanical ventilation, or other extraordinary measures undertaken in the event of a cardiopulmonary arrest. Resuscitation status, therefore, "level 5" (DNR). DISPOSITION pending usually lives alone at home if going home will need home health services Family Medicine follow-up with Dr. Toussaint. Cardiology follow-up with Tariq Salazar PA-C. . Current Inpatient Medications: Current Inpatient Medications Medications (Trade) Dose Ordered Sig/Michael Route Start Time Stop Time Status Last Admin Dose Admin Acetaminophen (Tylenol Tab) 650 mg Q4H PRN PO 02/06/18 09:15 03/08/18 09:14 02/08/18 10:49 650 MG Aspirin (Ecotrin Tab) 81 mg DAILY PO 02/07/18 09:00 03/09/18 08:59 02/08/18 07:44 81 MG Escitalopram Oxalate (Lexapro Tab) 10 mg DAILY PO 02/07/18 09:00 03/09/18 08:59 02/08/18 07:44 10 MG Levalbuterol (Xopenex 0.31MG/ 3ML Neb) 0.31 mg Q4H PRN INH 02/06/18 09:30 03/08/18 09:29 Metoprolol Tartrate (Lopressor Tab) 50 mg BID PO 02/06/18 21:00 03/08/18 20:59 02/08/18 20:17 50 MG Nitroglycerin (Nitrostat Tab) 0.4 mg PRN UT 02/06/18 09:30 03/08/18 09:29 Simvastatin (Zocor Tab) 20 mg HS PO 02/06/18 21:00 03/08/18 20:59 02/08/18 20:17 20 MG Warfarin Sodium (Coumadin Tab) 2.5 mg SuMoTuThFrSa@1600 PO 02/06/18 16:00 03/08/18 15:59 02/08/18 16:43 2.5 MG Pantoprazole Sodium (Protonix Tab) 40 mg QAM PO 02/07/18 09:00 03/09/18 08:59 02/08/18 07:44 40 MG Vancomycin HCl (Consult) 1 ea UD PRN N/A 02/07/18 03:15 03/09/18 03:14 Isosorbide Mononitrate (Imdur Ext Rel Tab) 30 mg QAM PO 02/08/18 09:00 03/10/18 08:59 02/08/18 07:44 30 MG Fluticasone/ Vilanterol (Breo Ellipta 200-25 Mcg/Inh) 1 inha DAILY INH 02/08/18 09:00 03/10/18 08:59 02/08/18 07:45 1 INHA Furosemide (Lasix Tab) 40 mg QAM PO 02/09/18 09:00 03/11/18 08:59 Vancomycin HCl 1000 mg/Sodium Chloride 270 ml @ 125 mls/hr Q20H IV 02/08/18 20:00 8/21/18 19:59 02/08/18 20:16 125 MLS/HR
[2018-02-09] VITALS (9 sets, daily range): BP systolic 108–129; BP diastolic 57–81; PULSE 63–90; TEMP 36.4–36.7; O2SAT 92–100
[2018-02-09 07:06] LABS: BASO % 0.5 %; BASO ABS # 0.04 K/uL (0-0.2); EOS % 3.9 %; EOS ABS # 0.33 K/uL (0-0.5); HEMATOCRIT 31.9 % (37-47); HEMOGLOBIN 9.2 g/dL (12.0-16.0); IG# 0.02 K/uL (0.00-0.02); LYMPH % 13.4 %; LYMPH ABS # 1.15 K/uL (1.2-3.4); MEAN CELL VOLUME 81.4 fL (80-100); MEAN CORPUSCULAR HEMOGLOBIN 23.5 pg (25-34); MEAN CORPUSCULAR HGB CONC 28.8 g/dl (32-36); MEAN PLATELET VOLUME 10.2 fL (7.4-10.4); MONO % 8.8 %; MONO ABS # 0.75 K/uL (0.11-0.59); NEUT % 73.2 %; NEUT ABS # 6.28 K/uL (1.4-6.5); PLATELET COUNT 187 K/uL (130-400); RED CELL DISTRIBUTION WIDTH CV 18.2 % (11.5-14.5); RED CELL DISTRIBUTION WIDTH SD 54.1 fL (36.4-46.3); WHITE BLOOD COUNT 8.57 K/uL (4.8-10.8)
[2018-02-09 07:13] LABS: INR 3.1 (0.9-1.1)
[2018-02-09 07:36] LABS: CALCIUM 8.9 mg/dl (8.5-10.1); CREATININE 1.08 mg/dl (0.60-1.20)
[2018-02-09] MEDS: ESCITALOPRAM OXALATE 10 MG TAB PO SCH (08:07)
[2018-02-09] MEDS: FLUTICASONE FUROATE-VILANTEROL 200/25 MCG INH INH SCH (08:07)
[2018-02-09] MEDS: METOPROLOL TARTRATE 50 MG TAB PO SCH ×2 (08:07→20:32)
[2018-02-09] MEDS: PANTOprazole SOD 40 MG TAB PO SCH (08:07)
[2018-02-09] MEDS: ISOSORBIDE MONONITRATE 30 MG TABCR PO SCH (08:07)
[2018-02-09] MEDS: ASPIRIN 81 MG ECTAB PO SCH (08:08)
[2018-02-09] MEDS: FUROSEMIDE 40 MG TAB PO SCH (08:08)
--- NOTE | 2018-02-09 09:48 | Progress Note ---
Medicine Progress Note Date & Time of Visit: Feb 09, 2018 at 09:46. Subjective seen resting in bedside chair daughter present at bedside patient in good spirits states she continues to feel improved no dyspnea, chest pain no dizziness, weakness when ambulating no chills denies other symptoms Objective Last 8 Hrs Date Time Temp Pulse Resp B/P (MAP) Pulse Ox O2 Delivery O2 Flow Rate FiO2 02/09/18 08:00 Room Air 02/09/18 06:55 36.5 63 16 127/81 (96) 98 02/09/18 06:51 36.7 87 20 118/73 (88) 94 Room Air 02/09/18 03:05 36.5 72 18 121/72 (88) 94 2.0 Physical Exam: General- oriented x 3, not in distress, speaks in sentences with no effort Eyes-anicteric Neck-no JVD Lungs- clear BS bilaterally, no rales wheezes Heart-normal rate, irregularly irregular rhythm; no murmur Abdomen- normal bowel sounds, soft, nontender Extremities-trace pretibial edema, no calf tenderness; peripheral pulses intact Neuro- alert, oriented x 2 decreased hearing otherwise no gross focal deficits Skin- warm & dry Laboratory Results: Last 24 Hours Test 02/09/18 06:52 White Blood Count 8.57 K/uL Red Blood Count 3.92 M/uL Hemoglobin 9.2 g/dL Hematocrit 31.9 % Mean Corpuscular Volume 81.4 fL Mean Corpuscular Hemoglobin 23.5 pg Mean Corpuscular Hemoglobin Concent 28.8 g/dl Platelet Count 187 K/uL Mean Platelet Volume 10.2 fL Neutrophils (%) (Auto) 73.2 % Lymphocytes (%) (Auto) 13.4 % Monocytes (%) (Auto) 8.8 % Eosinophils (%) (Auto) 3.9 % Basophils (%) (Auto) 0.5 % Neutrophils # (Auto) 6.28 K/uL Lymphocytes # (Auto) 1.15 K/uL Monocytes # (Auto) 0.75 K/uL Eosinophils # (Auto) 0.33 K/uL Basophils # (Auto) 0.04 K/uL RDW Standard Deviation 54.1 fL RDW Coefficient of Variation 18.2 % Immature Granulocyte % (Auto) 0.2 % Immature Granulocyte # (Auto) 0.02 K/uL Prothrombin Time 32.0 SECONDS Prothromb Time International Ratio 3.1 Sodium Level 139 mmol/L Potassium Level 4.0 mmol/L Chloride Level 105 mmol/L Carbon Dioxide Level 26 mmol/L Anion Gap 8.0 mmol/L Blood Urea Nitrogen 34 mg/dl Creatinine 1.08 mg/dl Est Creatinine Clear Calc Drug Dose 38.6 ml/min Estimated GFR () 52.7 Estimated GFR (Non- 45.5 BUN/Creatinine Ratio 31.0 Random Glucose 84 mg/dl Calcium Level 8.9 mg/dl Assessment & Plan ACUTE HYPOXIC RESPIRATORY FAILURE secondary to CHF Presented to ED with acute dyspnea. O2 saturations were in the 70s on room air. Patient was very tachypneic. Hypoxia most likely secondary to CHF, but COPD probably also a contributing factor. -- Off oxygen supplement -- close to euvolemia CHF, ACUTE ON CHRONIC DIASTOLIC TYPE Exam, chest x-ray, elevated BNP consistent with CHF. Echocardiogram 07/24/17 demonstrated normal left ventricular systolic function with evidence of diastolic dysfunction. Has been on different doses of furosemide, most recently 20 mg every other day. Received furosemide 40 mg IV in ED with brisk diuresis. -Cardiology consulted Diuresing well continue Lasix 40 mg p.o. Imdur 30mg po daily added Monitor appreciate Cardio SVC recommendations POSSIBLE GRAM POSITIVE [id number] staph (+) 2 bottles repeat blood cultures negative so far cynthia/kalin Zhang consulted, appreciate the recommendations CORONARY ARTERY DISEASE Continue aspirin and metoprolol. Troponins negative CHRONIC ATRIAL FIBRILLATION Rate controlled. INR 3.1 Continue metoprolol and warfarin. HYPERTENSION Imdur added Continue metoprolol. COPD Suspect that bronchospasm upon arrival to ED secondary to CHF. Continue usual pulmonary meds. NOCTURNAL HYPOXIA Continue O2 2 LPM at night. VTE PROPHYLAXIS Continue warfarin. RESUSCITATION STATUS Discussed with patient. She has a living will. She prefers a natural passing and does not want CPR, mechanical ventilation, or other extraordinary measures undertaken in the event of a cardiopulmonary arrest. Resuscitation status, therefore, "level 5" (DNR). DISPOSITION pending usually lives alone at home if going home will need home health services Family Medicine follow-up with Dr. Toussaint. Cardiology follow-up with Tariq Salazar PA-C. . Current Inpatient Medications: Current Inpatient Medications Medications (Trade) Dose Ordered Sig/Michael Route Start Time Stop Time Status Last Admin Dose Admin Acetaminophen (Tylenol Tab) 650 mg Q4H PRN PO 02/06/18 09:15 03/08/18 09:14 02/08/18 10:49 650 MG Aspirin (Ecotrin Tab) 81 mg DAILY PO 02/07/18 09:00 03/09/18 08:59 02/09/18 08:08 81 MG Escitalopram Oxalate (Lexapro Tab) 10 mg DAILY PO 02/07/18 09:00 03/09/18 08:59 02/09/18 08:07 10 MG Levalbuterol (Xopenex 0.31MG/ 3ML Neb) 0.31 mg Q4H PRN INH 02/06/18 09:30 03/08/18 09:29 Metoprolol Tartrate (Lopressor Tab) 50 mg BID PO 02/06/18 21:00 03/08/18 20:59 02/09/18 08:07 50 MG Nitroglycerin (Nitrostat Tab) 0.4 mg PRN UT 02/06/18 09:30 03/08/18 09:29 Simvastatin (Zocor Tab) 20 mg HS PO 02/06/18 21:00 03/08/18 20:59 02/08/18 20:17 20 MG Warfarin Sodium (Coumadin Tab) 2.5 mg SuMoTuThFrSa@1600 PO 02/06/18 16:00 03/08/18 15:59 02/08/18 16:43 2.5 MG Pantoprazole Sodium (Protonix Tab) 40 mg QAM PO 02/07/18 09:00 03/09/18 08:59 02/09/18 08:07 40 MG Vancomycin HCl (Consult) 1 ea UD PRN N/A 02/07/18 03:15 03/09/18 03:14 Isosorbide Mononitrate (Imdur Ext Rel Tab) 30 mg QAM PO 02/08/18 09:00 03/10/18 08:59 02/09/18 08:07 30 MG Fluticasone/ Vilanterol (Breo Ellipta 200-25 Mcg/Inh) 1 inha DAILY INH 02/08/18 09:00 03/10/18 08:59 02/09/18 08:07 1 INHA Furosemide (Lasix Tab) 40 mg QAM PO 02/09/18 09:00 03/11/18 08:59 02/09/18 08:08 40 MG Vancomycin HCl 1000 mg/Sodium Chloride 270 ml @ 125 mls/hr Q20H IV 02/08/18 20:00 02/22/18 19:59 02/08/18 20:16 125 MLS/HR
--- NOTE | 2018-02-09 10:14 | PROGRESS NOTE ---
DATE: 02/09/2018 The patient is seen and examined. Chart, medications, telemetry reviewed. SUBJECTIVE: The patient feels well this morning, is sitting out of bed in chair. O2 saturations are 98% on room air. I's and O's reflect on good diuresis of approximately 4 kg since admission. She notes breathing has been easier. Notes no chest pains, tachypalpitations. Notes no headache or visual changes. Notes no fevers or chills. OBJECTIVE: VITAL SIGNS: Heart rate 77, blood pressure is 112/61. NECK: Thin. There is no distinct jugular venous distention. LUNGS: Reveal diminished crackles at the bases. CARDIOVASCULAR: Irregularly irregular. There is no S3 gallop. ABDOMEN: Soft, nontender. EXTREMITIES: Reveal diminished peripheral edema. Mild chronic stasis changes. LABORATORY DATA: INR is 3.1. Sodium is 139, potassium is 4.0, chloride is 105, bicarbonate is 26, BUN is 34, creatinine is 1.08, hemoglobin is 5.2. IMPRESSION: An 87-year-old female admitted with issues as follows: 1. Acute respiratory failure with hypoxia secondary to [id number]-ic-qpvanuv diastolic heart failure. 2. History of chronic atrial fibrillation, rate controlled. 3. Hypertensive urgency on initial presentation. 4. Chronic left bundle branch block. 5. Chronic coronary atherosclerosis without acute myocardial injury. 6. Other issues since admission include positive blood cultures possibly contaminant. RECOMMENDATIONS: Medications have been adjusted in hospital. Diuresis has been manifested with initial IV. Diuretics now switch to oral furosemide, dosing will likely be furosemide 40 mg alternating with 20 mg every other day. Oral nitrates were also added to regimen, isosorbide 30 mg po daily to be continued post-discharge. Precardiac medications were continued otherwise, including metoprolol and warfarin. Outpatient followup in 1-2 weeks. CHF instructions including daily weights. MTDD
--- NOTE | 2018-02-09 14:45 | Progress Note ---
Subjective Date of Service: Feb 09, 2018. Subjective repeat cultures negative, afebrile. initial culture with aging box hand. on vanco. Problem List Medical Problems: (1) Cervical strain Status: Acute (2) Cervical strain Status: Acute (3) Closed traumatic displaced supracondylar fracture of humerus Status: Acute (4) Closed traumatic displaced supracondylar fracture of humerus Status: Acute (5) Congestive heart failure Status: Acute (6) Congestive heart failure Status: Acute (7) Congestive heart failure Status: Acute (8) Dehydration Status: Acute (9) Dehydration Status: Acute (10) Fall Status: Acute (11) Fall Status: Acute (12) Fall Status: Acute (13) Fall Status: Acute (14) Fall Status: Acute (15) Fall Status: Acute (16) Fall Status: Acute (17) Fall Status: Acute (18) Head injury Status: Acute (19) Head injury Status: Acute (20) Hypoxia Status: Acute (21) Hypoxia Status: Acute (22) Hypoxia Status: Acute (23) Laceration of lower extremity Status: Acute (24) Laceration of lower extremity Status: Acute (25) Respiratory failure, acute Status: Acute (26) Scalp hematoma Status: Acute (27) Scalp hematoma Status: Acute (28) Skin tear Status: Acute (29) Skin tear Status: Acute Objective Vital Signs Date Time Temp Pulse Resp B/P (MAP) Pulse Ox O2 Delivery O2 Flow Rate FiO2 02/09/18 10:47 36.5 76 20 108/63 (78) 93 Room Air 02/09/18 08:00 Room Air 02/09/18 06:55 36.5 63 16 127/81 (96) 98 02/09/18 06:51 36.7 87 20 118/73 (88) 94 Room Air 02/09/18 03:05 36.5 72 18 121/72 (88) 94 2.0 02/09/18 00:27 36.4 70 16 129/61 (83) 98 2.0 02/08/18 23:59 Room Air 02/08/18 19:44 93 Room Air 02/08/18 19:15 36.5 77 18 112/61 (78) 93 Room Air 02/08/18 14:58 36.5 73 20 115/58 (77) 93 Room Air Laboratory Results Item Value Date Time Blood Culture - Preliminary Resulted 02/07/18 1100 Blood NO GROWTH TO DATE. Blood Culture - Preliminary Resulted 02/07/18 1045 Blood NO GROWTH TO DATE. Blood Culture - Preliminary Resulted 02/06/18 0735 Blood Coag Neg Staph Not [place]ensis Blood Culture - Preliminary Resulted 02/06/18 0735 Blood Coag Neg Staph Not [place] Last 24 Hours Test 02/09/18 06:52 White Blood Count 8.57 K/uL Red Blood Count 3.92 M/uL Hemoglobin 9.2 g/dL Hematocrit 31.9 % Mean Corpuscular Volume 81.4 fL Mean Corpuscular Hemoglobin 23.5 pg Mean Corpuscular Hemoglobin Concent 28.8 g/dl Platelet Count 187 K/uL Mean Platelet Volume 10.2 fL Neutrophils (%) (Auto) 73.2 % Lymphocytes (%) (Auto) 13.4 % Monocytes (%) (Auto) 8.8 % Eosinophils (%) (Auto) 3.9 % Basophils (%) (Auto) 0.5 % Neutrophils # (Auto) 6.28 K/uL Lymphocytes # (Auto) 1.15 K/uL Monocytes # (Auto) 0.75 K/uL Eosinophils # (Auto) 0.33 K/uL Basophils # (Auto) 0.04 K/uL RDW Standard Deviation 54.1 fL RDW Coefficient of Variation 18.2 % Immature Granulocyte % (Auto) 0.2 % Immature Granulocyte # (Auto) 0.02 K/uL Prothrombin Time 32.0 SECONDS Prothromb Time International Ratio 3.1 Sodium Level 139 mmol/L Potassium Level 4.0 mmol/L Chloride Level 105 mmol/L Carbon Dioxide Level 26 mmol/L Anion Gap 8.0 mmol/L Blood Urea Nitrogen 34 mg/dl Creatinine 1.08 mg/dl Est Creatinine Clear Calc Drug Dose 38.6 ml/min Estimated GFR () 52.7 Estimated GFR (Non- 45.5 BUN/Creatinine Ratio 31.0 Random Glucose 84 mg/dl Calcium Level 8.9 mg/dl Assessment and Plan (1) Positive blood culture Assessment & Plan: likely contaminant. If repeat cultures negative, would follow off of abx.
[2018-02-09] MEDS ORDERED: VANCOMYCIN TROUGH ONE (15:30)
[2018-02-09] MEDS: SIMVASTATIN 20 MG TAB PO SCH (20:32)
[2018-02-09] MEDS: ACETAMINOPHEN 325 MG TAB PO PRN (20:40)
[2018-02-10 03:50] VITALS: BP 125/69; PULSE 83; TEMP 36.8; O2SAT 95
[2018-02-10 07:01] VITALS: BP 144/78; PULSE 69; TEMP 36.6; O2SAT 96
[2018-02-10 07:10] LABS: INR 2.7 (0.9-1.1)
[2018-02-10 07:28] LABS: CALCIUM 8.8 mg/dl (8.5-10.1)
--- NOTE | 2018-02-10 08:06 | Progress Note ---
Medicine Progress Note Date & Time of Visit: Feb 10, 2018 at 08:00. Subjective seen resting in bedside chair, just had breakfast in good spirits states she feels good overall denies dyspnea, cough no chills, pain, nausea no other symptoms states she is back to baseline states she is ready for discharge today Objective Last 8 Hrs Date Time Temp Pulse Resp B/P (MAP) Pulse Ox O2 Delivery O2 Flow Rate FiO2 02/10/18 07:01 36.6 69 18 144/78 (100) 96 Room Air 02/10/18 03:50 36.8 83 16 125/69 (87) 95 Room Air Physical Exam: General- oriented x 3, not in distress, speaks in sentences with no effort Eyes-anicteric Neck-no JVD Lungs- mild rales at the bases, no wheezing, good air entry bilaterally Heart-normal rate, irregularly irregular rhythm; no murmur Abdomen- normal bowel sounds, soft, nontender Extremities-trace pretibial edema, no calf tenderness Neuro- alert, oriented x 2 decreased hearing otherwise no gross focal deficits Skin- warm & dry Laboratory Results: Last 24 Hours Test 02/09/18 15:36 02/10/18 06:43 Vancomycin Level Trough 13.9 mcg/ml Prothrombin Time 27.4 SECONDS Prothromb Time International Ratio 2.7 Sodium Level 140 mmol/L Potassium Level 4.0 mmol/L Chloride Level 106 mmol/L Carbon Dioxide Level 27 mmol/L Anion Gap 7.0 mmol/L Blood Urea Nitrogen 31 mg/dl Creatinine 1.00 mg/dl Est Creatinine Clear Calc Drug Dose 42.4 ml/min Estimated GFR () 57.8 Estimated GFR (Non- 49.9 BUN/Creatinine Ratio 31.2 Random Glucose 86 mg/dl Calcium Level 8.8 mg/dl Assessment & Plan ACUTE HYPOXIC RESPIRATORY FAILURE secondary to CHF Presented to ED with acute dyspnea. O2 saturations were in the 70s on room air. Patient was very tachypneic. Hypoxia most likely secondary to CHF, but COPD probably also a contributing factor. -- Off oxygen supplement -- euvolemic CHF, ACUTE ON CHRONIC DIASTOLIC TYPE Exam, chest x-ray, elevated BNP consistent with CHF. Echocardiogram 07/24/17 demonstrated normal left ventricular systolic function with evidence of diastolic dysfunction. Has been on different doses of furosemide, most recently 20 mg every other day. Received furosemide 40 mg IV in ED with brisk diuresis. -Cardiology consulted Diuresing well continue Lasix 40 mg p.o. Imdur 30mg po daily added Monitor appreciate Cardio SVC recommendations POSSIBLE GRAM POSITIVE [id number] staph (+) 2 bottles repeat blood cultures negative so far off [facility] since yesterday, afebrile ID consulted, appreciate the recommendations CORONARY ARTERY DISEASE Continue aspirin and metoprolol. Troponins negative CHRONIC ATRIAL FIBRILLATION Rate controlled. INR 2.7 Continue metoprolol and warfarin. HYPERTENSION Imdur added Continue metoprolol. COPD Suspect that bronchospasm upon arrival to ED secondary to CHF. Continue usual pulmonary meds. NOCTURNAL HYPOXIA Continue O2 2 LPM at night. VTE PROPHYLAXIS Continue warfarin. RESUSCITATION STATUS Discussed with patient. She has a living will. She prefers a natural passing and does not want CPR, mechanical ventilation, or other extraordinary measures undertaken in the event of a cardiopulmonary arrest. Resuscitation status, therefore, "level 5" (DNR). DISPOSITION pending usually lives alone at home if going home will need home health services Family Medicine follow-up with Dr. Toussaint. Cardiology follow-up with Tariq Salazar PA-C. . Current Inpatient Medications: Current Inpatient Medications Medications (Trade) Dose Ordered Sig/Michael Route Start Time Stop Time Status Last Admin Dose Admin Acetaminophen (Tylenol Tab) 650 mg Q4H PRN PO 02/06/18 09:15 03/08/18 09:14 02/09/18 20:40 650 MG Aspirin (Ecotrin Tab) 81 mg DAILY PO 02/07/18 09:00 03/09/18 08:59 02/09/18 08:08 81 MG Escitalopram Oxalate (Lexapro Tab) 10 mg DAILY PO 02/07/18 09:00 03/09/18 08:59 02/09/18 08:07 10 MG Levalbuterol (Xopenex 0.31MG/ 3ML Neb) 0.31 mg Q4H PRN INH 02/06/18 09:30 03/08/18 09:29 Metoprolol Tartrate (Lopressor Tab) 50 mg BID PO 02/06/18 21:00 03/08/18 20:59 02/09/18 20:32 50 MG Nitroglycerin (Nitrostat Tab) 0.4 mg PRN UT 02/06/18 09:30 03/08/18 09:29 Simvastatin (Zocor Tab) 20 mg HS PO 02/06/18 21:00 03/08/18 20:59 02/09/18 20:32 20 MG Warfarin Sodium (Coumadin Tab) 2.5 mg SuMoTuThFrSa@1600 PO 02/06/18 16:00 03/08/18 15:59 02/08/18 16:43 2.5 MG Pantoprazole Sodium (Protonix Tab) 40 mg QAM PO 02/07/18 09:00 03/09/18 08:59 02/09/18 08:07 40 MG Isosorbide Mononitrate (Imdur Ext Rel Tab) 30 mg QAM PO 02/08/18 09:00 03/10/18 08:59 02/09/18 08:07 30 MG Fluticasone/ Vilanterol (Breo Ellipta 200-25 Mcg/Inh) 1 inha DAILY INH 02/08/18 09:00 03/10/18 08:59 02/09/18 08:07 1 INHA Furosemide (Lasix Tab) 40 mg QAM PO 02/09/18 09:00 03/11/18 08:59 02/09/18 08:08 40 MG
[2018-02-10] MEDS: FLUTICASONE FUROATE-VILANTEROL 200/25 MCG INH INH SCH (08:46)
[2018-02-10] MEDS: FUROSEMIDE 40 MG TAB PO SCH (08:47)
[2018-02-10] MEDS: METOPROLOL TARTRATE 50 MG TAB PO SCH (08:47)
[2018-02-10] MEDS: ESCITALOPRAM OXALATE 10 MG TAB PO SCH (08:47)
[2018-02-10] MEDS: ASPIRIN 81 MG ECTAB PO SCH (08:47)
[2018-02-10] MEDS: PANTOprazole SOD 40 MG TAB PO SCH (08:47)
[2018-02-10] MEDS: ISOSORBIDE MONONITRATE 30 MG TABCR PO SCH (08:47)
[2018-02-10] MEDS: ACETAMINOPHEN 325 MG TAB PO PRN (08:55)
--- NOTE | 2018-02-10 09:35 | PROGRESS NOTE ---
DATE: 02/10/2018 The patient seen and examined. Chart, medications, telemetry reviewed. SUBJECTIVE: The patient feels well this morning. Notes no cardiac complaints. Notes no chest discomfort. Notes no dizziness or lightheadedness. Has been sitting out in bed. She continues to diurese with lower extremity edema improving. Overall, feels well. Blood pressures have been generally controlled since hospitalization. Notes no fevers or chills, signs of infection. OBJECTIVE: VITAL SIGNS: Heart rate is 69, blood pressure is 144/78. NECK: Neck is thin. There is no jugular venous distension with patient examined upright. LUNGS: Reveal better aeration of the basilar segments. CARDIOVASCULAR: Irregularly irregular. There is no S3 gallop. ABDOMEN: Soft. EXTREMITIES: Without cyanosis or clubbing. There is improving lower extremity edema. LABORATORY DATA: Sodium is 140, potassium is 4.0, chloride is 106, bicarbonate is 27, BUN is 31, creatinine is 1.0. IMPRESSION: An 87-year-old female as per previous notes seen for acute on chronic decompensated diastolic heart failure superimposed on chronic obstructive lung disease, chronic left bundle branch block, and chronic atrial fibrillation. The patient has responded initially to IV, now oral diuretics plan as noted yesterday to be furosemide 40 mg alternating with 20 mg every other day on discharge. Oral nitrates added to regimen at 30 mg Imdur. Hospitalization medications are warfarin and metoprolol to be continued, to follow up with cardiology clinic in the next week's time. CHAI
[2018-02-10 11:20] VITALS: BP 111/67; PULSE 63; TEMP 36.3; O2SAT 96
[2018-02-10] MEDS ORDERED: IMDSR30 PO (11:38)
[2018-02-10] MEDS ORDERED: FURO-85 PO (11:38)
--- NOTE | 2018-02-10 11:44 | Discharge Summary ---
Discharge Summary Date of Service Feb 10, 2018. Discharge Summary Admission Date: Feb 06, 2018 at 09:08 Discharge Date: Feb 10, 2018 Discharge Disposition: Home Principal Diagnosis: ACUTE HYPOXIC RESPIRATORY FAILURE secondary to CHF Secondary Diagnoses/Problems: Please refer to hospital course below. Procedures: CHEST ONE VIEW PORTABLE CLINICAL HISTORY: EVALUATE RESPIRATORY DISTRESS.DYSPNEA COMPARISON STUDY: 10/01/2017 FINDINGS: Moderate cardiomegaly. Components of congestive heart failure. Probable trace pleural effusion left lung base. IMPRESSION: Congestive heart failure Consultations: Cardiology Pending Studies/Follow-Up: Please refer to hospital course below. Medication Reconciliation New Medications: Isosorbide Mononitrate (Isosorbide Mononitrate ER) 30 Mg Tabcr 30 MG PO QAM for 30 Days, #30 TAB 2 Refills Changed Medications: Furosemide (Lasix) 20 Mg Tab 20 MG PO UD for 30 Days, #45 TAB 2 Refills (Changed from: Q2D; Refills: ) take 2 tablets daily 4 x a week (on [id number]); take 1 tab daily 3x a week (on [id number]) Continued Medications: Aspirin (Aspirin Ec) 81 Mg Tab 81 MG PO DAILY Bisacodyl (Dulcolax) 5 Mg Tab 10 MG OR UD PRN for Constipation for 1 Day, #2 TAB Calcium Carbonate-Cholecalcife (Caltrate 600+D) 1 Tab Tab 1 TAB PO BID Escitalopram (Lexapro) 10 Mg Tab 10 MG PO DAILY, TAB Fluticasone Furoate-Vilanterol (Breo Ellipta) 1 Inh Inh 1 INHA NA DAILY Levalbuterol (Levalbuterol HCl) 0.31 Mg/3 Ml Nebu 3 ML PO Q4H PRN for Wheezing Metoprolol Tartrate (Lopressor) (Lopressor) 50 Mg Tab 50 MG PO BID, #180 Nitroglycerin (Nitrostat) 0.4 Mg Tab 0.4 MG UT PRN, BTL Omeprazole (Prilosec) 20 Mg Capcr 20 MG PO DAILY, CAP Simvastatin (Simvastatin) 20 Mg Tab 20 MG PO DAILY Warfarin Sodium (Warfarin Sodium) 5 Mg Tab 2.5 MG PO 6XWK TAKES 2.5 MG 6XWEEKLY ON WED,WED,WED,,WED,WED. DOES NOT TAKE ANY COUMADIN ON WEDNESDAYS Admission Information HPI (per Admitting provider): 87-year-old female followed by Dr. Toussaint for Family Medicine and Tariq Salazar PA-C for Cardiology. History of ischemic heart disease, chronic atrial fibrillation, COPD, and other problems noted below. Noted acute dyspnea this morning around 0500 while ambulating from bed to bathroom. No chest pain. Nonproductive cough. Dyspnea associated with sweats, but no fever. She was brought to the ED. O2 saturations were in the 70s on room air. Received O2, intravenous methylprednisolone, nebulizer treatment, IV furosemide , and nitroglycerin ointment with improvement of her symptoms. Good urine output after receiving furosemide. Comfortable at time of my assessment. . Physical Exam (per Admitting): CONSTITUTIONAL vital signs as noted above elderly female, no acute distress at time of my assessment EYES conjunctivae clear; lids normal pupils equal and reactive to light EARS, NOSE, MOUTH AND THROAT external inspection of ears and nose unremarkable hard of hearing upper partial plate oropharynx clear NECK no masses; trachea midline thyroid normal RESPIRATORY bibasilar rales diffuse wheezing CARDIOVASCULAR irregularly irregular no murmur, gallop, rub appreciated + JVD carotid arteries 2/2 abdominal aorta not palpable pedal pulses diminished capillary refill toes about 2 seconds trace pretibial edema GASTROINTESTINAL normal bowel sounds, soft, nontender; no palpable masses no hepatomegaly; no splenomegaly LYMPHATIC no cervical adenopathy MUSCULOSKELETAL no cyanosis; no digital clubbing no calf tenderness motor strength extremities grossly intact SKIN no rash warm and dry NEUROLOGIC PERRL, EOMI, no facial palsy, no dysarthria, tongue midline patellar DTR's 1/2 PSYCHIATRIC oriented to person, place, time mood and affect appropriate . Hospital Course ACUTE HYPOXIC RESPIRATORY FAILURE secondary to CHF Presented to ED with acute dyspnea. O2 saturations were in the 70s on room air. Patient was very tachypneic. Hypoxia most likely secondary to CHF, but COPD probably also a contributing factor. -- Off oxygen supplement resolved CHF, ACUTE ON CHRONIC DIASTOLIC TYPE Exam, chest x-ray, elevated BNP consistent with CHF. Echocardiogram 07/24/17 demonstrated normal left ventricular systolic function with evidence of diastolic dysfunction. Has been on different doses of furosemide, most recently 20 mg every other day. Received furosemide 40 mg IV in ED with brisk diuresis. -Cardiology consulted Diuresed well with IV Lasix and titration of PO Lasix - Cardiology recommends: alternating Lasix 40mg and 20mg once a day Imdur 30mg po daily added - ff up with Case Checker in 1-2 weeks GRAM POSITIVE [id number]-pflnllugi-[id number] staph, CONTAMINANT (+) 2 bottles repeat blood cultures negative likely contaminant ID consulted, appreciate the recommendations CORONARY ARTERY DISEASE Continue aspirin and metoprolol. Troponins negative CHRONIC ATRIAL FIBRILLATION Rate controlled. INR 2.7 Continue metoprolol and warfarin. HYPERTENSION Imdur added Continue metoprolol. COPD Suspect that bronchospasm upon arrival to ED secondary to CHF. Continue usual pulmonary meds. NOCTURNAL HYPOXIA Continue O2 2 LPM at night. DISPOSITION D/C home ff up instructions at d/c instructions Cardiology follow-up with Tariq Salazar PA-C. . Total time spent on discharge = 30 minutes This includes examination of the patient, discharge planning, medication reconciliation, and communication with other providers. Discharge Instructions Discharge Instructions Date of Service Feb 10, 2018. Admission Reason for Admission: Hypoxia Discharge Discharge Diagnosis / Problem: Acute Hypoxic Respiratory Failure, Congestive Heart Failure Discharge Goals Goal(s): Diagnostic testing, Therapeutic intervention Activity Recommendations Activity Limitations: as noted below (resume activity gradually as tolerated) Lifting Limitations: until after follow-up appointment Exercise/Sports Limitations: until after follow-up appointment . Instructions / Follow-Up Instructions / Follow-Up PLEASE REVIEW YOUR NEW MEDICATION LIST AND FOLLOW INSTRUCTIONS CAREFULLY. CALL PRIMARY CARE PHYSICIAN OR RETURN TO ER IMMEDIATELY IF WITH WORSENING OF SYMPTOMS, INCREASING SHORTNESS OF BREATH, LEG SWELLING. RESTRICT FLUID INTAKE TO NOT MORE THAN 2 LITERS/DAY. LOW SODIUM DIET, 2G SODIUM/DAY. FOLLOW UP WITH DR. BROWN (ASSOCIATE OF DR. TOUSSAINT) ON SATURDAY FEBRUARY 17, 2018 AT 1:00PM. FOLLOW UP WITH [employer] DR. ARRIAGA AT [facility] IN 1-2 WEEKS. Call your Primary Care doctor if any of the following symptoms or problems start or get worse: * Shortness of breath or difficulty breathing * Wake up at night short of breath * Chest pain * Cough * Swelling of your hands, feet, or legs * More fatigued or tired with your normal activity * Palpitations - sudden fast heart beats WEIGHT * Weigh yourself every morning after using the bathroom. * Use the same scale. * Wear the same amount of clothing. * Write your weight down on a chart. * Call your Primary Care doctor if you gain more than 2-3 pounds in 1-2 days. MEDICATIONS * Use this discharge instruction sheet for medication instructions. * Take your medications at the time your doctor ordered. * Do not skip a dose of your medicines. * If you miss a dose of medicine, take it as soon as possible, but DO NOT DOUBLE A DOSE. * Read your medicine information when you get home. * Know all of the side effects of your medicine. If in doubt, ask your pharmacist * Call your Primary Care doctor's office if you have any side effects. * Be sure all of your doctors know what medicine and herbs you take (including cold, flu, and herbal medicine). Take the following with you to your follow-up doctor appointments: * Weight Chart * Medication List * List of questions Do not drink excessive alcohol, beer or wine. Current Hospital Diet Patient's current hospital diet: AHA Diet (Heart Healthy) Discharge Diet Recommended Diet: AHA Diet (Heart Healthy), Low Sodium Diet (2gm Na) Fluid Restriction: 2000 ml (8 cups) Pending Studies Studies pending at discharge: no Medical Emergencies . Who to Call and When: Call 911 or go to the Emergency Room if: * If at any time you feel your situation is an emergency * You have tightness or pain in your chest that does not go away with rest or Nitroglycerin * You are very short of breath even with rest . Non-Emergent Contact Non-Emergency issues call your: Primary Care Provider, Case Checker Call Non-Emergent contact if: you have a fever, you have any medication questions . . "Provider Documentation" section prepared by Javier Camarillo. .
[2018-02-10 11:45] VITALS: BP 111/67; PULSE 63; TEMP 36.3; O2SAT 96
[2018-02-10] MEDS ORDERED: VANCOMYCIN TROUGH ONE (15:30)
== END 2018-02-10 13:20 | disposition home health service (06) | DRG 291 ==
LOC: C.EDB 06:36 → EDBD 06:36 → C.2T 09:08 → ENRESERV 09:19
PROVIDERS: ADMIT Hospitalist; ATTEND Internal Medicine
DX: I13.0 Hypertensive heart and chronic kidney disease with heart failure and stage 1 through stage 4 chronic kidney disease, or unspecified chronic kidney disease (principal); I50.33 Acute on chronic diastolic (congestive) heart failure; J96.01 Acute respiratory failure with hypoxia; J44.9 Chronic obstructive pulmonary disease, unspecified; I16.0 Hypertensive urgency; N18.3 Chronic kidney disease, stage 3 (moderate); I48.2 Chronic atrial fibrillation; I25.10 Atherosclerotic heart disease of native coronary artery without angina pectoris; F32.9 Major depressive disorder, single episode, unspecified; Z66 Do not resuscitate; Z79.01 Long term (current) use of anticoagulants; Z79.82 Long term (current) use of aspirin; Z79.899 Other long term (current) drug therapy

== ENCOUNTER 2018-07-26 15:33 | Inpatient (IN) ==
[2018-07-26] MEDS ORDERED: PANTOPRAZOLE BOLUS/DRIP 1 EA IV STA (15:55)
[2018-07-26] MEDS ORDERED: SODIUM CHLORIDE 0.9% 250 ML IV PRN ×3 (15:55→20:25)
[2018-07-26] MEDS ORDERED: PANTOprazole 80 MG in DEXTROSE 5% 100 ML IV ONE (15:55)
[2018-07-26] MEDS ORDERED: PANTOprazole 40 MG in DEXTROSE 5% 100 ML IV SCH (16:00)
[2018-07-26 16:50] LABS: INR 1.7 (0.9-1.1); Partial Thromboplastin Time 25.2 Seconds (21.0-31.0); Prothrombin Time 16.5 Seconds (9.0-12.0)
[2018-07-26 16:51] LABS: Hematocrit (blood only) 24.8 % (37-47); Hemoglobin 6.7 g/dL (12.0-16.0); Mean Corpuscular Volume 82.4 fL (80-100); Mean Platelet Volume 9.9 fL (7.4-10.4); Nucleated RBC # (auto) 0.06 K/uL (0-0); Nucleated RBC % (auto) 0.8 %; Platelet Count 220 K/uL (130-400); RDW Coefficient of Variation 20.1 % (11.5-14.5); Red Blood Count 3.01 M/uL (4.2-5.4)
[2018-07-26 16:56] LABS: Albumin Level 3.4 gm/dl (3.4-5.0); BUN Creatinine Ratio 23.5 (10-20); Calcium 9.4 mg/dl (8.5-10.1); Creatinine Clr Calc Pharmacy 31.9 ml/min; Est GFR (Non-African American) 35.4; Potassium 4.3 mmol/L (3.5-5.1)
[2018-07-26 16:59] LABS: Bilirubin,Total 0.6 mg/dl (0.2-1); Globulin 3.3 gm/dl (2.5-4.0); Total Protein 6.7 gm/dl (6.4-8.2)
--- NOTE | 2018-07-26 17:04 | Emergency Department Note ---
Entered by Merna Mckeon acting as a scribe for Raymond Heard MD History of Present Illness General Chief complaint: Abnormal Labs/Diagnostic Testing Stated complaint: LOW HEMOGLOBIN Time Seen by Provider: 07/26/18 15:40 Source: patient and family (daughter) Limitations: no limitations History of Present Illness Provider complaint: abnormal labs Onset (ago): hour(s) (earlier in the day) Maximum Pain Intensity: 0 Associated symptoms: + shortness of breath and + other (+black stool, +light- headed, +dizziness) The patient is a 87 white female w/ PMHx of CHF, CAD, COPD, CKD, and atrial fibrillation who presents to the ED w/ CC of having abnormal blood labs beginning earlier in the day prior to arrival. The patient states that she had blood work done this morning and it was found to be abnormal. The patient states that she has dark stools, light-headedness, dizziness, and shortness of breath. The patient states that she wears 2L of oxygen all of the time. The patient states that she takes Aspirin and Coumadin for a history of atrial fibrillation. The patient denies a history of a GI bleed but states that she does have a history of colon cancer. Per daughter, the patient was last admitted in June of 2018 and her lasix's were increased but the patient did not receive a blood transfusion. Home Medications Home Medications Medication Instructions Recorded Confirmed Type aspirin 81 mg tablet,delayed 81 mg PO UD 04/05/18 07/26/18 History release calcium carbonate 600 mg calcium 600 mg PO BID tab 04/05/18 07/26/18 History (1,500 mg) tablet escitalopram 10 mg tablet 10 mg PO QAM 04/05/18 07/26/18 History isosorbide mononitrate ER 30 mg 30 mg PO QAM 04/05/18 07/26/18 History tablet,extended release 24 hr levalbuterol 0.31 mg/3 mL solution 0.31 mg INH Q4H PRN ml 04/05/18 07/26/18 History for nebulization metoprolol tartrate 50 mg tablet 50 mg PO BID 04/05/18 07/26/18 History simvastatin 20 mg tablet 20 mg PO QPM 04/05/18 07/26/18 History warfarin 2.5 mg tablet 2.5 mg PO 5XD 04/05/18 07/26/18 History fluticasone-vilanterol 1 puff INHALATION QAM 06/26/18 07/26/18 History furosemide 40 mg PO DAILY 06/26/18 07/26/18 History iron,carbonyl-vitamin C [Vitron-C] 1 tab PO DAILY 07/26/18 07/26/18 History polyethylene glycol 3350 [Miralax] 17 g PO DAILY PRN 07/26/18 07/26/18 History potassium chloride 10 meq PO DAILY 07/26/18 07/26/18 History Allergies Allergy/AdvReac Type Severity Reaction Status Date / Time propoxyphene Allergy Unknown Unknown Unverified 06/26/18 10:24 tramadol Allergy Unknown DELIRIUM Unverified 06/26/18 10:24 indomethacin AdvReac Unknown GASTRIC Unverified 06/26/18 10:24 UPSET rofecoxib AdvReac Unknown DRY MOUTH Unverified 06/26/18 10:24 Past Med/Surg History Medical History Hypertensive heart disease (Chronic) Diastolic heart failure (Chronic) LBBB (left bundle branch block) (Chronic) Hypertension (Chronic) Dyslipidemia (Chronic) COPD (chronic obstructive pulmonary disease) (Chronic) Chronic kidney disease (CKD), stage III (moderate) (Chronic) Depression (Chronic) Atrial fibrillation (Chronic) Warfarin anticoagulation (Chronic) Afib (Chronic) Anxiety (Chronic) Arteriosclerotic cardiovascular disease (Chronic) CKD (chronic kidney disease), stage III (Chronic) COPD (chronic obstructive pulmonary disease) (Chronic) Claustrophobia (Chronic) Dyslipidemia (Chronic) GERD (gastroesophageal reflux disease) (Chronic) HABEMATOLEL (hard of hearing) (Chronic) HTN (hypertension) (Chronic) Osteoarthritis (Chronic) LBBB (left bundle branch block) Surgical History Status post cataract extraction (Resolved) Status post cholecystectomy (Resolved) S/P cataract extraction (Resolved) S/P cholecystectomy (Resolved) S/P hip replacement (Resolved) Social History marital status: Current Living Situation Comment: [facility] current occupational 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 and A total of 10 systems reviewed and were otherwise negative Physical Exam Vital Signs Vital Signs - 24 hr 07/26/18 15:37 07/26/18 16:54 07/26/18 18:38 Temperature 36.6 C 36.7 C Temperature Source Oral Oral Sepsis Recent Fever Within 48 Hours No Sepsis New/Unexplained Change in Mental Status No Sepsis Action Taken by Nursing No Action Required Pulse Rate 81 65 Pulse Rate [Apical] Respiratory Rate 18 18 Respiratory Effort / Characteristics Non-Labored Respiratory Depth Normal Respiratory Pattern Regular Blood Pressure 119/66 120/64 Blood Pressure [Right Arm] Blood Pressure Mean 83 82 Blood Pressure Mean [Right Arm] Blood Pressure Position Sitting Pulse Oximetry 92 97 99 Oxygen Delivery Method Nasal Cannula Room Air Oxygen Flow Rate 2 2 07/26/18 18:57 07/26/18 19:04 07/26/18 19:34 Temperature 36.7 C Temperature Source Oral Sepsis Recent Fever Within 48 Hours Sepsis New/Unexplained Change in Mental Status Sepsis Action Taken by Nursing Pulse Rate 67 59 L Pulse Rate [Apical] 66 Respiratory Rate 20 20 20 Respiratory Effort / Characteristics Respiratory Depth Respiratory Pattern Blood Pressure 132/60 130/54 L Blood Pressure [Right Arm] 134/61 Blood Pressure Mean 84 79 Blood Pressure Mean [Right Arm] 85 Blood Pressure Position Pulse Oximetry 99 99 100 Oxygen Delivery Method Nasal Cannula Oxygen Flow Rate 2 2 2 07/26/18 19:49 Temperature 36.6 C Temperature Source Oral Sepsis Recent Fever Within 48 Hours Sepsis New/Unexplained Change in Mental Status Sepsis Action Taken by Nursing Pulse Rate 79 Pulse Rate [Apical] Respiratory Rate 78 H Respiratory Effort / Characteristics Respiratory Depth Respiratory Pattern Blood Pressure 130/71 Blood Pressure [Right Arm] Blood Pressure Mean 90 Blood Pressure Mean [Right Arm] Blood Pressure Position Pulse Oximetry 96 Oxygen Delivery Method Oxygen Flow Rate 2 GENERAL: Well appearing, well nourished, NAD, non-toxic, wearing glasses, NC in place. EYE EXAM: Normal conjunctiva. PERRL, no anisocoria and EOM's grossly intact w/o pains. OROPHARYNX: No exudate, posterior pharynx is clear, no tonsillar/uvular deviation or swelling. NECK: Supple, no nuchal rigidity, no adenopathy, non-tender. No signs of meningismus. LUNGS: Bisailar crackles. Normal chest wall mechanics. HEART: NSR, no MRG. ABDOMEN: Abdomen soft, non-tender, normo-active bowel sounds, no masses, no rebound or guarding. BACK: No CVA TTP. Rectal: Several hemorrhoids, non-bleeding nor thrombosed; no bright red blood, no dark stool. Stool mildly heme positive. SKIN: No rashes and no bruising. UPPER EXTREMITIES: Upper extremities are grossly normal. LOWER EXTREMITIES: No pitting edema. No calf pain. NEURO EXAM: Cranial nerves II-XII grossly intact, normal speech, 5/5 strength in bilateral upper and lower extremities, no sensory deficits, moves all 4 extremities on command w/o issue. Course 1547: Past medical records reviewed. The patient was evaluated in room B7, and a complete history and physical examination were performed. 1645: I performed a rectal exam on the patient. The exam reveled several hemorrhoids, non-bleeding, no bright red blood, no dark stool, and Heme positive. 1702: I discussed the patient's case with Tracie Chaudhary PA-C for [facility] who will evaluate the patient for further hospitalization. Consultations Consultation #1: Tracie Chaudhary PA-C for [facility] Time: 17:02 Administered Medications Discontinued Medications Furosemide (Lasix) 20 mg IV NOW ONE Stop: 07/26/18 18:17 Last Admin: 07/26/18 18:39 Dose: 20 mg Pantoprazole Sodium (Protonix Bolus/Drip) 0 mls @ 1 mls/hr IV ONE STA Stop: 07/26/18 15:56 Last Admin: 07/26/18 16:58 Dose: Not Given Pantoprazole Sodium 40 mg/ (Dextrose) 100 mls @ 20 mls/hr IV Q5H [facility] Stop: 08/25/18 15:59 Last Admin: 07/26/18 16:57 Dose: 20 mls/hr Pantoprazole Sodium 80 mg/ (Dextrose) 120 mls @ 400 mls/hr IV NOW ONE Stop: 07/26/18 16:12 Last Infusion: 07/26/18 16:58 Dose: 0 mls/hr Admin: 07/26/18 16:36 Dose: 400 mls/hr Medical Decision Making Medical Records Attestation: I reviewed the patient's medical records. Home Medications Current Medication List: was personally reviewed by me Laboratory Data Attestation: I reviewed the patient's lab results. Result diagrams: 07/26/18 16:24 07/26/18 16:24 Lab Results 07/26/18 07/26/18 07/26/18 Range/Units 16:21 16:24 16:24 WBC 7.40 (4.8-10.8) K/uL RBC 3.01 L (4.2-5.4) M/uL Hgb 6.7 L* (12.0-16.0) g/dL Hct 24.8 L (37-47) % MCV 82.4 (80-100) fL MCH 22.3 L (25-34) pg MCHC 27.0 L (32-36) g/dL RDW Std Deviation 60.0 H (36.4-46.3) fL RDW Coeff of Madisyn 20.1 H (11.5-14.5) % Plt Count 220 (130-400) K/uL MPV 9.9 (7.4-10.4) fL Immature Gran % (Auto) 0.1 % Neut % (Auto) 76.6 % Lymph % (Auto) 11.8 % Hanson % (Auto) 9.2 % Eos % (Auto) 1.9 % Baso % (Auto) 0.4 % Immature Gran # (Auto) 0.01 (0.00-0.02) K/uL Neut # (Auto) 5.67 (1.4-6.5) K/uL Lymph # (Auto) 0.87 L (1.2-3.4) K/uL Hanson # (Auto) 0.68 H (0.11-0.59) K/uL Eos # (Auto) 0.14 (0-0.5) K/uL Baso # (Auto) 0.03 (0-0.2) K/uL Absolute Nucleated RBC 0.06 H (0-0) K/uL Nucleated RBC % (auto) 0.8 % Toxic Vacuolation 1+ Polychromasia 1+ Hypochromasia Present Anisocytosis Present Microcytosis Present PT 16.5 H (9.0-12.0) Seconds INR 1.7 H (0.9-1.1) APTT 25.2 (21.0-31.0) Seconds PTT Ratio 1.0 Sodium (136-145) mmol/L Potassium (3.5-5.1) mmol/L Chloride (98-107) mmol/L Carbon Dioxide (21-32) mmol/L Anion Gap (3-11) BUN (7-18) mg/dl Creatinine (0.6-1.2) mg/dl Est Cr Clr Drug Dosing ml/min Est GFR ( Amer) Est GFR (Non-Af Amer) BUN/Creatinine Ratio (10-20) Glucose (70-99) mg/dl Calcium (8.5-10.1) mg/dl Total Bilirubin (0.2-1) mg/dl AST (15-37) U/L ALT (12-78) U/L Alkaline Phosphatase (45-117) U/L Total Protein (6.4-8.2) gm/dl Albumin (3.4-5.0) gm/dl Globulin (2.5-4.0) gm/dl Albumin/Globulin Ratio (0.9-2) POC Stool Occult Blood (Negative) Blood Type A Positive Antibody Screen NEGATIVE Crossmatch See Detail 07/26/18 07/26/18 Range/Units 16:24 16:54 WBC (4.8-10.8) K/uL RBC (4.2-5.4) M/uL Hgb (12.0-16.0) g/dL Hct (37-47) % MCV (80-100) fL MCH (25-34) pg MCHC (32-36) g/dL RDW Std Deviation (36.4-46.3) fL RDW Coeff of Madisyn (11.5-14.5) % Plt Count (130-400) K/uL MPV (7.4-10.4) fL Immature Gran % (Auto) % Neut % (Auto) % Lymph % (Auto) % Hanson % (Auto) % Eos % (Auto) % Baso % (Auto) % Immature Gran # (Auto) (0.00-0.02) K/uL Neut # (Auto) (1.4-6.5) K/uL Lymph # (Auto) (1.2-3.4) K/uL Hanson # (Auto) (0.11-0.59) K/uL Eos # (Auto) (0-0.5) K/uL Baso # (Auto) (0-0.2) K/uL Absolute Nucleated RBC (0-0) K/uL Nucleated RBC % (auto) % Toxic Vacuolation Polychromasia Hypochromasia Anisocytosis Microcytosis PT (9.0-12.0) Seconds INR (0.9-1.1) APTT (21.0-31.0) Seconds PTT Ratio Sodium 138 (136-145) mmol/L Potassium 4.3 (3.5-5.1) mmol/L Chloride 101 (98-107) mmol/L Carbon Dioxide 27 (21-32) mmol/L Anion Gap 10.0 (3-11) BUN 31 H (7-18) mg/dl Creatinine 1.33 H (0.6-1.2) mg/dl Est Cr Clr Drug Dosing 31.9 ml/min Est GFR ( Amer) 41.0 Est GFR (Non-Af Amer) 35.4 BUN/Creatinine Ratio 23.5 H (10-20) Glucose 100 H (70-99) mg/dl Calcium 9.4 (8.5-10.1) mg/dl Total Bilirubin 0.6 (0.2-1) mg/dl AST 21 (15-37) U/L ALT 20 (12-78) U/L Alkaline Phosphatase 72 (45-117) U/L Total Protein 6.7 (6.4-8.2) gm/dl Albumin 3.4 (3.4-5.0) gm/dl Globulin 3.3 (2.5-4.0) gm/dl Albumin/Globulin Ratio 1.0 (0.9-2) POC Stool Occult Blood Positive H (Negative) Blood Type Antibody Screen Crossmatch ECG Data Attestation: I personally reviewed and interpreted this ECG as follows: Indication: other (abnormal labs) Rate (beats per minute): 79 Rhythm: atrial fibrillation Findings: + other (wide QRS, left axis deviation), + LBBB and + Q waves Comparison ECG Date: from (10/28/16) Change: no significant change Blood Pressure Blood Pressure Findings: Normal blood pressure MDM Narrative The patient is a 87 white female w/ PMHx of CHF, CAD, COPD, CKD, and atrial fibrillation who presents to the ED w/ CC of having abnormal blood labs beginning earlier in the day prior to arrival. Differential diagnosis: Etiologies such as esophagitis, variceal bleed, [place], [place] tear, gastritis, peptic ulcer disease, AVM, inflammatory bowel disease, ischemia, diverticulosis, colitis, malignancy, coagulopathy, thrombocytopenia, fissure, hemorrhoid, epistaxis , as well as others were entertained. Patient was seen and evaluated the bedside. The patient was referred for a low hemoglobin. Of note the patient is on aspirin as well as Coumadin. Patient did have a heme positive rectal exam. The patient was started on a PPI bolus and drip and consented for 2 units of PRBCs. Patient was given blood. Patient was to be given IV Lasix with the administration of the PRBCs per the medicine service. Do not believe that the patient requires anticoagulant reversal at this time. The patient's INR is 1.7. Patient was admitted to the medicine service. Impression & Plan Acute GI bleeding, Symptomatic anemia Critical Care Time I have personally spent greater than 45 minutes of critical care time in the direct management of this patient. This includes bedside care, interpretation of diagnostic studies, and testing, discussion with consultants, patient, and family members, and other required patient management activities. This 45 minutes is in excess of all separately billable procedures. Critical Care Time: Yes Total Critical Care Time: 45 Discharge Plan Visit Data *Final* Discharge Date/Time: 07/26/18 19:38 Chief Complaint: Abnormal Labs/Diagnostic Testing Stated Complaint: LOW HEMOGLOBIN ED Provider: Raymond Heard Discharge Problem: Acute GI bleeding, Symptomatic anemia Patient Disposition: Admitted As Inpatient Condition: Good Discharge Instructions Interventions: ED Discharge Assessment Last Done: 07/26/18 19:38 The scribe's documentation has been prepared under my direction and personally reviewed by me in its entirety. I confirm that the note above accurately reflects all work, treatment, procedures, and medical decision making performed by me.
[2018-07-26 17:06] LABS: Anisocytosis Present; Basophils # (auto) 0.03 K/uL (0-0.2); Basophils % (auto) 0.4 %; Eosinophils # (auto) 0.14 K/uL (0-0.5); Eosinophils % (auto) 1.9 %; Hypochromasia Present; Immature Granulocytes # (auto) 0.01 K/uL (0.00-0.02); Immature Granulocytes % (auto) 0.1 %; Lymphocytes # (auto) 0.87 K/uL (1.2-3.4); Lymphocytes % (auto) 11.8 %; Microcytosis Present; Monocytes # (auto) 0.68 K/uL (0.11-0.59); Monocytes % (auto) 9.2 %; Neutrophils # (auto) 5.67 K/uL (1.4-6.5); Neutrophils % (auto) 76.6 %; Polychromasia 1+; Toxic Vacuolation 1+
[2018-07-26] MEDS ORDERED: FUROSEMIDE 40 MG/4 ML VIAL IV ONE (18:16)
--- NOTE | 2018-07-26 18:29 | History & Physical Report ---
Date of Service July 26, 2018 Assessment & Plan (1) Anemia: Hx chronic anemia. Baseline Hgb ~9 Hgb: 7.6 during admission 06/26/18 with iron: 23, ferritin: 24, folate: 21, vitamin B12: 412. Was started on iron supplement daily on 07/08/18 Today was sent to ER for outpatient lab of Hgb: 6.7 today. Chronic exertional SOB and dizziness, relieved with chronic oxygen 2L NC use. No worsening SOB or dizziness. No syncope, CP. In ER afebrile, P: 81, R: 18, BP: 119/66, 92-97% on 2L O2. WBC: 7.4. H/H: 6.7/ 24.8, MCV: 82, MCH: 22, MCHC: 27, RDW: 60. BUN: 31, Cr: 1.3 Reported heme positive stool, no bright red blood noted. Pt was given protonix bolus and started on drip -Type and cross PRBC, transfuse 1 unit PRBC now with lasix 20mg IV -monitor H&H and transfuse as appropriate -NSS at 50ml/hr x 1 bag -clear liquids -npo after midnight -protonix IV BID -hold aspirin and coumadin for now -GI consult, appreciate recommendations -cbc, bmp in am (2) Atrial fibrillation: Chronic a-fib on coumadin INR: 1.7. A-fib on EKG -hold coumadin currently -INR in am -continue metoprolol (3) COPD (chronic obstructive pulmonary disease): Oxygen dependent on 2L NC -continue supplemental oxygen -continue Breo -continue levalbuterol neb prn (4) Diastolic heart failure: Chronic 06/2018: echo: EF: 60-65% -appears euvolemic at this time -dose IV lasix with blood transfusion -continue daily lasix 40mg po (5) Hypertensive heart disease: -continue metoprolol, statin, imdur -hold aspirin (6) Hypertension: Stable -continue metoprolol (7) Dyslipidemia: -continue statin (8) Chronic kidney disease (CKD), stage III (moderate): Cr: 1.3. baseline 1.2-1.5 -monitor renal functions -avoid nephrotoxic agents (9) Depression: Hx anxiety, depression. Stable -continue escitalopram DVT Prophylaxis -SCDs DNR/DNI as per discussion with pt and family Follows with Dr Toussaint for routine care Pt was seen with Dr Flores. See addendum History of Present Illness Chief Complaint: Anemia Primary Care Provider: SILVINA Pt is 87 y/o F with PMH a-fib on coumadin, COPD, chronic oxygen dependent at 2L NC, CKD III, chronic diastolic heart failure, HTN, dyslipidemia, chronic anemia , anxiety, depression, chronic LBBB presented to ER for abnormal lab results of Hgb: 6.7 today. Pt reports chronic SOB with exertion and denies any increased symptoms, improves with using her oxygen continuous as directed. Also reports chronic dizziness if not wearing her oxygen or not breathing through her nose when wearing oxygen, denies any worsening. Eating and drinking well. Drinks 2 cups coffee daily, no ETOH. On aspirin and coumadin. Denies NSAID use. Denies abdominal pain, indigestion, or bright red blood per rectum. Pt states has noticed dark black color stools past 2 weeks. Was started on iron supplement 2 weeks ago. Denies fever/chills, diaphoresis, N/V/D/C, PAIZ, syncope, vision changes, neck pain, CP, orthopnea, palpitations, cough, sore throat, choking, otalgia, rhinorrhea, abdominal pain, paresthesias, weakness, extremity weakness, extremity edema, rashes, urinary symptoms. Pt with recent hospital admission 06/26/18-06/27/18 for acute on chronic diastolic HF and acute on chronic hypoxic respiratory failure. During that admission Hgb: 7.6 and iron: 23, ferritin: 24, folate: 21, vitamin B12: 412. Was started on iron supplement daily on 07/08/18 by cardiology. Pt to have appt with hematology - Dr Martinez on 08/02/18 for new pt appt for anemia. Hx colonoscopy 2004: 2 polyps and internal hemorrhoids Allergies Allergy/AdvReac Type Severity Reaction Status Date / Time propoxyphene Allergy Unknown Unknown Unverified 06/26/18 10:24 tramadol Allergy Unknown DELIRIUM Unverified 06/26/18 10:24 indomethacin AdvReac Unknown GASTRIC Unverified 06/26/18 10:24 UPSET rofecoxib AdvReac Unknown DRY MOUTH Unverified 06/26/18 10:24 Home Medications Home Medications Medication Instructions Recorded Confirmed Type aspirin 81 mg tablet,delayed 81 mg PO UD 04/05/18 07/26/18 History release calcium carbonate 600 mg calcium 600 mg PO BID tab 04/05/18 07/26/18 History (1,500 mg) tablet escitalopram 10 mg tablet 10 mg PO QAM 04/05/18 07/26/18 History isosorbide mononitrate ER 30 mg 30 mg PO QAM 04/05/18 07/26/18 History tablet,extended release 24 hr levalbuterol 0.31 mg/3 mL solution 0.31 mg INH Q4H PRN ml 04/05/18 07/26/18 History for nebulization metoprolol tartrate 50 mg tablet 50 mg PO BID 04/05/18 07/26/18 History simvastatin 20 mg tablet 20 mg PO QPM 04/05/18 07/26/18 History warfarin 2.5 mg tablet 2.5 mg PO 5XD 04/05/18 07/26/18 History fluticasone-vilanterol 1 puff INHALATION QAM 06/26/18 07/26/18 History furosemide 40 mg PO DAILY 06/26/18 07/26/18 History iron,carbonyl-vitamin C [Vitron-C] 1 tab PO DAILY 07/26/18 07/26/18 History polyethylene glycol 3350 [Miralax] 17 g PO DAILY PRN 07/26/18 07/26/18 History potassium chloride 10 meq PO DAILY 07/26/18 07/26/18 History Past Med/Surg History Medical History Hypertensive heart disease (Chronic) Diastolic heart failure (Chronic) LBBB (left bundle branch block) (Chronic) Hypertension (Chronic) Dyslipidemia (Chronic) COPD (chronic obstructive pulmonary disease) (Chronic) Chronic kidney disease (CKD), stage III (moderate) (Chronic) Depression (Chronic) Atrial fibrillation (Chronic) Warfarin anticoagulation (Chronic) Afib (Chronic) Anxiety (Chronic) Arteriosclerotic cardiovascular disease (Chronic) CKD (chronic kidney disease), stage III (Chronic) COPD (chronic obstructive pulmonary disease) (Chronic) Claustrophobia (Chronic) Dyslipidemia (Chronic) GERD (gastroesophageal reflux disease) (Chronic) [place] (hard of hearing) (Chronic) HTN (hypertension) (Chronic) Osteoarthritis (Chronic) LBBB (left bundle branch block) Surgical History Status post cataract extraction (Resolved) Status post cholecystectomy (Resolved) S/P cataract extraction (Resolved) S/P cholecystectomy (Resolved) S/P hip replacement (Resolved) Social History marital status: Current Living Situation Comment: [facility] 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 occupational 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 Feels Safe at Home: Yes Smoking Status: Never smoker Second Hand Exposure: No Hx Alcohol Use: No Hx Substance Use: No Beliefs That Will Affect Care: None Preferred Language: Mongolian well-balanced diet: about half the time Review of Systems All systems reviewed & are unremarkable except as noted in HPI & below Physical Exam 2 Vital Signs (Past 24 Hours): Last Vital Signs Temp 36.6 C 07/26/18 15:37 Pulse 81 07/26/18 15:37 Resp 18 07/26/18 15:37 BP 119/66 07/26/18 15:37 Pulse Ox 97 07/26/18 16:54 Physical Exam: General: no distress, WDWN Head: normocephalic, atraumatic Eyes: PERRL, EOM's intact, conjunctiva non-injected, anicteric ENT: normal inspection external ears, nose, mucous membranes moist Neck: supple, trachea midline, non-tender Lungs: no respiratory distress on 2L NC, no wheezing/rhonchi, +faint rales bibasilar CV: irregularly irregular, rate 80, no pretibial edema Abd: normal BS, soft, non-tender Ext: no cyanosis, no calf tenderness Neuro: A&O x 3, no focal deficits noted, normal affect Skin: warm, dry Results & Data Laboratory Results Short CBC 07/26/18 Range/Units 16:24 WBC 7.40 (4.8-10.8) K/uL Hgb 6.7 L* (12.0-16.0) g/dL Hct 24.8 L (37-47) % Plt Count 220 (130-400) K/uL BMP 07/26/18 16:24 Sodium 138 Potassium 4.3 Chloride 101 Carbon Dioxide 27 BUN 31 H Creatinine 1.33 H Glucose 100 H Calcium 9.4 Liver Function 07/26/18 Range/Units 16:24 Total Bilirubin 0.6 (0.2-1) mg/dl AST 21 (15-37) U/L ALT 20 (12-78) U/L Alkaline Phosphatase 72 (45-117) U/L Albumin 3.4 (3.4-5.0) gm/dl ECG Rate (beats per minute): 79 Rhythm: atrial fibrillation Findings: + LBBB Supervising Physician Co-Signing Physician Notes I have seen and examined the patient with our team's physician assisted living assistant and agree with the assessment and plan as above and would like to comment that patient is likely anemic secondary to iron deficiency anemia but we will treat in case there is contribution from a GI bleed. Patient ordered 1 unit of PRBC to be given in the ED. Given that patient has history of diastolic CHF (but not in exacerbation), will try to be gentle with volume and will give Lasxi 20 mg x 1 with the first transfusion. May place the second unit of PRBC on hold. trend CBC. Patient can contiue IV fluids as 50 cc/hr with clear liquid diet and keep NPO after midnight in case there is a need for gastroenterology service to scope the patient. will hold off coumadin and aspirin for now chronic respiratory failure with hypoxia on home O2 continuously from home, continue nasal cannula oxygen other medical management as above on physical exam general: no acute distress Heart; bradycardia Lungs: on nasal cannula, clear to ascultation, no wheezing abdomen: soft, nontender, positive bowel sounds Legs: no edema _ (1) Anemia Anemia type: unspecified type Bone marrow failure anemia type: Chronic kidney disease stage: Folate deficiency anemia type: Hemolytic anemia type: Iron deficiency anemia type: Other causes of anemia: Vitamin B12 deficiency anemia type: Qualified Code(s): D64.9 - Anemia, unspecified
[2018-07-26] MEDS ORDERED: ACETAMINOPHEN 325 MG TAB PO PRN (20:25)
[2018-07-26] MEDS ORDERED: LEVALBUTEROL 0.31MG/3 ML VIAL INH PRN (20:25)
[2018-07-26] MEDS ORDERED: NITROGLYCERIN SL 0.4 MG/TAB TAB SL PRN (20:25)
[2018-07-26] MEDS ORDERED: SODIUM CHLORIDE 0.9% 500 ML IV SCH (20:25)
[2018-07-26] MEDS: METOPROLOL TARTRATE 50 MG TAB PO SCH (22:00)
[2018-07-26] MEDS: SIMVASTATIN 20 MG TAB PO SCH (22:00)
[2018-07-26] MEDS: PANTOprazole 40 MG in SYRINGE 0 ML IV SCH (22:00)
[2018-07-26 23:30] LABS: INR 1.6 (0.9-1.1); Prothrombin Time 15.8 Seconds (9.0-12.0)
[2018-07-26 23:33] LABS: Hematocrit (blood only) 26.9 % (37-47); Hemoglobin 7.5 g/dL (12.0-16.0)
[2018-07-27 06:21] LABS: Hematocrit (blood only) 24.4 % (37-47); Mean Corpuscular Hgb Conc 28.7 g/dL (32-36); Mean Corpuscular Volume 81.3 fL (80-100); Mean Platelet Volume 9.5 fL (7.4-10.4); Nucleated RBC # (auto) 0.02 K/uL (0-0); Nucleated RBC % (auto) 0.4 %; Platelet Count 164 K/uL (130-400); RDW Coefficient of Variation 19.2 % (11.5-14.5); White Blood Count 5.72 K/uL (4.8-10.8)
[2018-07-27 06:50] LABS: BUN Creatinine Ratio 22.7 (10-20); Calcium 8.7 mg/dl (8.5-10.1); Creatinine Clr Calc Pharmacy 34.8 ml/min; Est GFR (African American) 45.5; Est GFR (Non-African American) 39.2; Potassium 3.9 mmol/L (3.5-5.1)
[2018-07-27] MEDS: PANTOprazole 40 MG in SYRINGE 0 ML IV SCH (08:15)
--- NOTE | 2018-07-27 10:57 | Gastrointestinal Consultation ---
Date of Consultation July 27, 2018 Assessment & Plan (1) Anemia: 87 year old female with extensive comorbidites (CKD, afib on coumadin, COPD on chronic O2, HF) who presents for abnormal outpatient labs w/ hgb 6.7 s/ p RBC x 1 w/ HGB 7 this AM. She has a normocytic anemia, no iron studies completed. She has had dark stools since OP iron was started but denies any melantoic/BRB stools or black/bloody emesis. Evaluation of EGD/Colon was discussed with the pt who elects to defer evaluation - No evidence of acute GI bleed - No role of urgent endoscopic evaluation - Pt wishes to defer endoscopy - Would check iron studies - Perhaps her chronic kidney disease is contributing to her anemia - Continue conersative measures - Trend H&H - Can transfuse HGB < 7 per primary service - Monitor GI output - GI to sign off but please call with any acute changes, questions or concerns. Present on Admission?: Yes Supervising Physician Co-Signing Physician Notes Attending attestation I have seen, examined this patient, and agree with the findings and above by our mid-level provider HARESH Rahman. -Patient with significant comorbidities including severe pulmonary arterial hypertension. She has no evidence of any acute ongoing GI bleeding. Hemoglobin is near at baseline. I am unsure if she is taking erythropoietin but that may be considered, she has an outpatient appointment with hematology coming up. I discussed endoscopic evaluation which she does not want to undergo at this time. -Continue supportive care -We will sign off -Call with questions History of Present Illness Reason for Consultation: anemia Requesting Physician: Crescencio Attending Physician: Eveline Prather MD History of Present Illness 87 year old female w/ history of AFIB on coumadin, COPD, COPD on 2L, CKD3, diastolic HF, HTN, dyslipidemia, chronic anemia who presents to the ER for abnormal lab, HGB 6.7. GI asked to evaluate for anemia. Notes she is in her typical state of health. Denies worsening SOB. No abd pain. Was started on Iron as an OP and has had darker stools of recent but denies any prior black/bloody stools/emesis. Denies GERD, dysphagia. Otherwise feels well. No fever, chills, CP, SOB Colonoscopy 2003: Two 5 mm polyps in the rectum and in the sigmoid colon.Resected and retrieved. Internal hemorrhoids were found. Allergies Allergy/AdvReac Type Severity Reaction Status Date / Time propoxyphene Allergy Unknown Unknown Unverified 06/26/18 10:24 tramadol Allergy Unknown DELIRIUM Unverified 06/26/18 10:24 indomethacin AdvReac Unknown GASTRIC Unverified 06/26/18 10:24 UPSET rofecoxib AdvReac Unknown DRY MOUTH Unverified 06/26/18 10:24 Home Medications Home Medications Medication Instructions Recorded Confirmed Type aspirin 81 mg tablet,delayed 81 mg PO UD 04/05/18 07/26/18 History release calcium carbonate 600 mg calcium 600 mg PO BID tab 04/05/18 07/26/18 History (1,500 mg) tablet escitalopram 10 mg tablet 10 mg PO QAM 04/05/18 07/26/18 History isosorbide mononitrate ER 30 mg 30 mg PO QAM 04/05/18 07/26/18 History tablet,extended release 24 hr levalbuterol 0.31 mg/3 mL solution 0.31 mg INH Q4H PRN ml 04/05/18 07/26/18 History for nebulization metoprolol tartrate 50 mg tablet 50 mg PO BID 04/05/18 07/26/18 History simvastatin 20 mg tablet 20 mg PO QPM 04/05/18 07/26/18 History warfarin 2.5 mg tablet 2.5 mg PO 5XD 04/05/18 07/26/18 History fluticasone-vilanterol 1 puff INHALATION QAM 06/26/18 07/26/18 History furosemide 40 mg PO DAILY 06/26/18 07/26/18 History iron,carbonyl-vitamin C [Vitron-C] 1 tab PO DAILY 07/26/18 07/26/18 History polyethylene glycol 3350 [Miralax] 17 g PO DAILY PRN 07/26/18 07/26/18 History potassium chloride 10 meq PO DAILY 07/26/18 07/26/18 History Patient History Medical History Hypertensive heart disease (Chronic) Diastolic heart failure (Chronic) LBBB (left bundle branch block) (Chronic) Hypertension (Chronic) Dyslipidemia (Chronic) COPD (chronic obstructive pulmonary disease) (Chronic) Chronic kidney disease (CKD), stage III (moderate) (Chronic) Depression (Chronic) Atrial fibrillation (Chronic) Warfarin anticoagulation (Chronic) Afib (Chronic) Anxiety (Chronic) Arteriosclerotic cardiovascular disease (Chronic) CKD (chronic kidney disease), stage III (Chronic) COPD (chronic obstructive pulmonary disease) (Chronic) Claustrophobia (Chronic) Dyslipidemia (Chronic) GERD (gastroesophageal reflux disease) (Chronic) [place] (hard of hearing) (Chronic) HTN (hypertension) (Chronic) Osteoarthritis (Chronic) LBBB (left bundle branch block) Surgical History Status post cataract extraction (Resolved) Status post cholecystectomy (Resolved) S/P cataract extraction (Resolved) S/P cholecystectomy (Resolved) S/P hip replacement (Resolved) Social History marital status: Current Living Situation: Residential Current Living Situation Comment: [facility] current occupational 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 Feels Safe at Home: Yes Safety Concerns: Feels Safe At This Time Smoking Status: Never smoker Second Hand Exposure: No Hx Alcohol Use: No Hx Substance Use: No Beliefs That Will Affect Care: None Preferred Language: Luxembourgish Communication Ability: Effective Chemical Laboratory Technician Required: No well-balanced diet: about half the time Review of Systems Constitutional: no fever, no chills, no fatigue and no anorexia Respiratory: + dyspnea (chronic); no cough and no chest congestion Cardiovascular: no chest pain, no chest pain at rest and no palpitations Gastrointestinal: no abdominal pain, no hematemesis, no fecal incontinence, no blood in stools and no melena Physical Exam 2 Vital Signs (Past 24 Hours): Last Vital Signs Temp 36.3 C L 07/27/18 06:54 Pulse 63 07/27/18 07:11 Resp 18 07/27/18 06:54 BP 145/79 H 07/27/18 06:54 Pulse Ox 96 07/27/18 06:54 Constitutional: well developed and well nourished (but chronically ill); no acute distress Respiratory: no respiratory distress and no labored breathing Auscultation : lungs clear to auscultation bilaterally (wearing O2) Cardiovascular: RRR, no murmur, no edema Gastrointestinal (Abdomen): normal bowel sounds, soft, nontender, no hepatosplenomegaly Skin: no rashes, warm and dry Results & Data Laboratory Results 07/27/18 07/27/18 07/27/18 Range/Units Unknown 05:58 05:58 WBC 5.72 (4.8-10.8) K/uL RBC 3.00 L (4.2-5.4) M/uL Hgb 7.0 L (12.0-16.0) g/dL Hct 24.4 L (37-47) % MCV 81.3 (80-100) fL MCH 23.3 L (25-34) pg MCHC 28.7 L (32-36) g/dL RDW Std Deviation 56.0 H (36.4-46.3) fL RDW Coeff of Madisyn 19.2 H (11.5-14.5) % Plt Count 164 (130-400) K/uL MPV 9.5 (7.4-10.4) fL Immature Gran % (Auto) % Neut % (Auto) % Lymph % (Auto) % Shannon % (Auto) % Eos % (Auto) % Baso % (Auto) % Immature Gran # (Auto) (0.00-0.02) K/uL Neut # (Auto) (1.4-6.5) K/uL Lymph # (Auto) (1.2-3.4) K/uL Shannon # (Auto) (0.11-0.59) K/uL Eos # (Auto) (0-0.5) K/uL Baso # (Auto) (0-0.2) K/uL Absolute Nucleated RBC 0.02 H (0-0) K/uL Nucleated RBC % (auto) 0.4 % Toxic Vacuolation Polychromasia Hypochromasia Anisocytosis Microcytosis PT (9.0-12.0) Seconds INR (0.9-1.1) APTT (21.0-31.0) Seconds PTT Ratio Sodium 138 (136-145) mmol/L Potassium 3.9 (3.5-5.1) mmol/L Chloride 104 (98-107) mmol/L Carbon Dioxide 25 (21-32) mmol/L Anion Gap 9.0 (3-11) BUN 28 H (7-18) mg/dl Creatinine 1.22 H (0.6-1.2) mg/dl Est Cr Clr Drug Dosing 34.8 ml/min Est GFR ( Amer) 45.5 Est GFR (Non-Af Amer) 39.2 BUN/Creatinine Ratio 22.7 H (10-20) Glucose 84 (70-99) mg/dl Calcium 8.7 (8.5-10.1) mg/dl Total Bilirubin (0.2-1) mg/dl AST (15-37) U/L ALT (12-78) U/L Alkaline Phosphatase (45-117) U/L Total Protein (6.4-8.2) gm/dl Albumin (3.4-5.0) gm/dl Globulin (2.5-4.0) gm/dl Albumin/Globulin Ratio (0.9-2) Nasal Screen MRSA (PCR) Negative (Negative) POC Stool Occult Blood (Negative) Blood Type Antibody Screen Crossmatch 07/26/18 07/26/18 07/26/18 Range/Units 23:05 23:05 16:54 WBC (4.8-10.8) K/uL RBC (4.2-5.4) M/uL Hgb 7.5 L (12.0-16.0) g/dL Hct 26.9 L (37-47) % MCV (80-100) fL MCH (25-34) pg MCHC (32-36) g/dL RDW Std Deviation (36.4-46.3) fL RDW Coeff of Madisyn (11.5-14.5) % Plt Count (130-400) K/uL MPV (7.4-10.4) fL Immature Gran % (Auto) % Neut % (Auto) % Lymph % (Auto) % Shannon % (Auto) % Eos % (Auto) % Baso % (Auto) % Immature Gran # (Auto) (0.00-0.02) K/uL Neut # (Auto) (1.4-6.5) K/uL Lymph # (Auto) (1.2-3.4) K/uL Shannon # (Auto) (0.11-0.59) K/uL Eos # (Auto) (0-0.5) K/uL Baso # (Auto) (0-0.2) K/uL Absolute Nucleated RBC (0-0) K/uL Nucleated RBC % (auto) % Toxic Vacuolation Polychromasia Hypochromasia Anisocytosis Microcytosis PT 15.8 H (9.0-12.0) Seconds INR 1.6 H (0.9-1.1) APTT (21.0-31.0) Seconds PTT Ratio Sodium (136-145) mmol/L Potassium (3.5-5.1) mmol/L Chloride (98-107) mmol/L Carbon Dioxide (21-32) mmol/L Anion Gap (3-11) BUN (7-18) mg/dl Creatinine (0.6-1.2) mg/dl Est Cr Clr Drug Dosing ml/min Est GFR ( Amer) Est GFR (Non-Af Amer) BUN/Creatinine Ratio (10-20) Glucose (70-99) mg/dl Calcium (8.5-10.1) mg/dl Total Bilirubin (0.2-1) mg/dl AST (15-37) U/L ALT (12-78) U/L Alkaline Phosphatase (45-117) U/L Total Protein (6.4-8.2) gm/dl Albumin (3.4-5.0) gm/dl Globulin (2.5-4.0) gm/dl Albumin/Globulin Ratio (0.9-2) Nasal Screen MRSA (PCR) (Negative) POC Stool Occult Blood Positive H (Negative) Blood Type Antibody Screen Crossmatch 07/26/18 07/26/18 07/26/18 Range/Units 16:24 16:24 16:24 WBC 7.40 (4.8-10.8) K/uL RBC 3.01 L (4.2-5.4) M/uL Hgb 6.7 L* (12.0-16.0) g/dL Hct 24.8 L (37-47) % MCV 82.4 (80-100) fL MCH 22.3 L (25-34) pg MCHC 27.0 L (32-36) g/dL RDW Std Deviation 60.0 H (36.4-46.3) fL RDW Coeff of Madisyn 20.1 H (11.5-14.5) % Plt Count 220 (130-400) K/uL MPV 9.9 (7.4-10.4) fL Immature Gran % (Auto) 0.1 % Neut % (Auto) 76.6 % Lymph % (Auto) 11.8 % Shannon % (Auto) 9.2 % Eos % (Auto) 1.9 % Baso % (Auto) 0.4 % Immature Gran # (Auto) 0.01 (0.00-0.02) K/uL Neut # (Auto) 5.67 (1.4-6.5) K/uL Lymph # (Auto) 0.87 L (1.2-3.4) K/uL Shannon # (Auto) 0.68 H (0.11-0.59) K/uL Eos # (Auto) 0.14 (0-0.5) K/uL Baso # (Auto) 0.03 (0-0.2) K/uL Absolute Nucleated RBC 0.06 H (0-0) K/uL Nucleated RBC % (auto) 0.8 % Toxic Vacuolation 1+ Polychromasia 1+ Hypochromasia Present Anisocytosis Present Microcytosis Present PT 16.5 H (9.0-12.0) Seconds INR 1.7 H (0.9-1.1) APTT 25.2 (21.0-31.0) Seconds PTT Ratio 1.0 Sodium 138 (136-145) mmol/L Potassium 4.3 (3.5-5.1) mmol/L Chloride 101 (98-107) mmol/L Carbon Dioxide 27 (21-32) mmol/L Anion Gap 10.0 (3-11) BUN 31 H (7-18) mg/dl Creatinine 1.33 H (0.6-1.2) mg/dl Est Cr Clr Drug Dosing 31.9 ml/min Est GFR ( Amer) 41.0 Est GFR (Non-Af Amer) 35.4 BUN/Creatinine Ratio 23.5 H (10-20) Glucose 100 H (70-99) mg/dl Calcium 9.4 (8.5-10.1) mg/dl Total Bilirubin 0.6 (0.2-1) mg/dl AST 21 (15-37) U/L ALT 20 (12-78) U/L Alkaline Phosphatase 72 (45-117) U/L Total Protein 6.7 (6.4-8.2) gm/dl Albumin 3.4 (3.4-5.0) gm/dl Globulin 3.3 (2.5-4.0) gm/dl Albumin/Globulin Ratio 1.0 (0.9-2) Nasal Screen MRSA (PCR) (Negative) POC Stool Occult Blood (Negative) Blood Type Antibody Screen Crossmatch 07/26/18 Range/Units 16:21 WBC (4.8-10.8) K/uL RBC (4.2-5.4) M/uL Hgb (12.0-16.0) g/dL Hct (37-47) % MCV (80-100) fL MCH (25-34) pg MCHC (32-36) g/dL RDW Std Deviation (36.4-46.3) fL RDW Coeff of Madisyn (11.5-14.5) % Plt Count (130-400) K/uL MPV (7.4-10.4) fL Immature Gran % (Auto) % Neut % (Auto) % Lymph % (Auto) % Shannon % (Auto) % Eos % (Auto) % Baso % (Auto) % Immature Gran # (Auto) (0.00-0.02) K/uL Neut # (Auto) (1.4-6.5) K/uL Lymph # (Auto) (1.2-3.4) K/uL Shannon # (Auto) (0.11-0.59) K/uL Eos # (Auto) (0-0.5) K/uL Baso # (Auto) (0-0.2) K/uL Absolute Nucleated RBC (0-0) K/uL Nucleated RBC % (auto) % Toxic Vacuolation Polychromasia Hypochromasia Anisocytosis Microcytosis PT (9.0-12.0) Seconds INR (0.9-1.1) APTT (21.0-31.0) Seconds PTT Ratio Sodium (136-145) mmol/L Potassium (3.5-5.1) mmol/L Chloride (98-107) mmol/L Carbon Dioxide (21-32) mmol/L Anion Gap (3-11) BUN (7-18) mg/dl Creatinine (0.6-1.2) mg/dl Est Cr Clr Drug Dosing ml/min Est GFR ( Amer) Est GFR (Non-Af Amer) BUN/Creatinine Ratio (10-20) Glucose (70-99) mg/dl Calcium (8.5-10.1) mg/dl Total Bilirubin (0.2-1) mg/dl AST (15-37) U/L ALT (12-78) U/L Alkaline Phosphatase (45-117) U/L Total Protein (6.4-8.2) gm/dl Albumin (3.4-5.0) gm/dl Globulin (2.5-4.0) gm/dl Albumin/Globulin Ratio (0.9-2) Nasal Screen MRSA (PCR) (Negative) POC Stool Occult Blood (Negative) Blood Type A Positive Antibody Screen NEGATIVE Crossmatch See Detail _ (1) Anemia Anemia type: unspecified type Bone marrow failure anemia type: Chronic kidney disease stage: Folate deficiency anemia type: Hemolytic anemia type: Iron deficiency anemia type: Other causes of anemia: Vitamin B12 deficiency anemia type: Qualified Code(s): D64.9 - Anemia, unspecified
[2018-07-27] MEDS: ISOSORBIDE MONO EXTENDED REL 30 MG TABCR PO SCH (12:19)
[2018-07-27] MEDS: ESCITALOPRAM OXALATE 10 MG TAB PO SCH (12:20)
[2018-07-27] MEDS: METOPROLOL TARTRATE 50 MG TAB PO SCH ×2 (12:20→20:05)
[2018-07-27] MEDS: POTASSIUM CHLORIDE 10 MEQ TABCR PO SCH (12:20)
[2018-07-27] MEDS: FUROSEMIDE 40 MG TAB PO SCH (12:20)
--- NOTE | 2018-07-27 18:15 | Hospitalist Progress Note ---
Date of Service July 27, 2018 Assessment & Plan (1) Anemia: Hx chronic anemia. Baseline Hgb ~9 Hgb: 7.6 during admission 06/26/18 with iron: 23, ferritin: 24, folate: 21, vitamin B12: 412. Was started on iron supplement daily on 07/08/18 was sent to ER for outpatient lab of Hgb: 6.7 today. Chronic exertional SOB and dizziness, relieved with chronic oxygen 2L NC use. No worsening SOB or dizziness. No syncope, CP. In ER afebrile, P: 81, R: 18, BP: 119/66, 92-97% on 2L O2. WBC: 7.4. H/H: 6.7/ 24.8, MCV: 82, MCH: 22, MCHC: 27, RDW: 60. BUN: 31, Cr: 1.3 Reported heme positive stool, no bright red blood noted. Pt was given protonix bolus and started on drip -s/p transfusion of 1 unit PRBC now with lasix 20mg IV H&H been stable post transfusion no evidence of GI Bleed -no episode of melanotic stool -GI consult, appreciate recommendations - recommends to advance diet , changed Protonix to pO observe clincially no plan for EGD -as no evidence of active bleeding (2) Atrial fibrillation: Chronic a-fib on coumadin INR: 1.7. A-fib on EKG coumadin on hold for GI bleed /anemia -continue metoprolol (3) COPD (chronic obstructive pulmonary disease): Oxygen dependent on 2L NC respiratory status at baseline -continue Breo -continue levalbuterol neb prn (4) Diastolic heart failure: Chronic 06/2018: echo: EF: 60-65% -appears euvolemic at this time -dose IV lasix with blood transfusion -continue daily lasix 40mg po (5) Hypertensive heart disease: -continue metoprolol, statin, imdur -hold aspirin (6) Hypertension: Stable -continue metoprolol (7) Dyslipidemia: -continue statin (8) Chronic kidney disease (CKD), stage III (moderate): Cr: 1.3. baseline 1.2-1.5 -monitor renal functions -avoid nephrotoxic agents (9) Depression: Hx anxiety, depression. Stable -continue escitalopram DVT Prophylaxis -SCDs DNR/DNI as per discussion with pt and family DISPOSITION ; plan to discharge next 24-48 hrs if no evidence of GI bleed /H&H remains stable Follows with Dr Toussaint for routine care Subjective sitting up on chair comfortable denies of any dizzy spell, no ODELL no nausea or vomiting no episode of dark stool Physical Exam 2 Vital Signs (Past 24 Hours): Last Vital Signs Temp 36.7 C 07/27/18 14:40 Pulse 84 07/27/18 17:00 Resp 16 07/27/18 14:40 BP 130/76 07/27/18 14:40 Pulse Ox 96 07/27/18 14:40 Physical Exam: GENERAL: elderly female , very pleasant , No sign of distress, HEENT: Sclera nonicteric, pink-purple bilateral equal reactive to light extraocular muscle intact Normal oral mucosa, neck: No JVD, no thyromegaly, trachea midline Lungs: Clear to auscultate, no wheeze or rales Cardiovascular: Regular S1 and S2, no murmur or gallop, no JVD, no lower extremity edema Abdomen: Soft, nontender, bowel sounds active, no hepatosplenomegaly Extremities: No rash or deformity, normal joint, Neuro: No focal neurological deficit, no dysarthria, no facial droop Psych: Alert awake oriented x3: Euthymic Skin: No rash LYMPH NODES: No cervical lymphadenopathy _ (1) Anemia Anemia type: unspecified type Bone marrow failure anemia type: Chronic kidney disease stage: Folate deficiency anemia type: Hemolytic anemia type: Iron deficiency anemia type: Other causes of anemia: Vitamin B12 deficiency anemia type: Qualified Code(s): D64.9 - Anemia, unspecified
[2018-07-27] MEDS: SIMVASTATIN 20 MG TAB PO SCH (20:04)
[2018-07-27] MEDS: PANTOprazole 40 MG TAB PO SCH (20:05)
[2018-07-28 07:05] LABS: Hemoglobin 7.3 g/dL (12.0-16.0)
[2018-07-28 07:12] LABS: BUN Creatinine Ratio 22.1 (10-20); Calcium 8.8 mg/dl (8.5-10.1); Creatinine Clr Calc Pharmacy 32.5 ml/min; Est GFR (African American) 42.1; Est GFR (Non-African American) 36.3; Potassium 4.1 mmol/L (3.5-5.1)
[2018-07-28] MEDS: ISOSORBIDE MONO EXTENDED REL 30 MG TABCR PO SCH (07:58)
[2018-07-28] MEDS: POTASSIUM CHLORIDE 10 MEQ TABCR PO SCH (07:58)
[2018-07-28] MEDS: FUROSEMIDE 40 MG TAB PO SCH (07:58)
[2018-07-28] MEDS: ESCITALOPRAM OXALATE 10 MG TAB PO SCH (07:59)
[2018-07-28] MEDS: PANTOprazole 40 MG TAB PO SCH ×2 (07:59→20:02)
[2018-07-28] MEDS: METOPROLOL TARTRATE 50 MG TAB PO SCH ×2 (07:59→20:03)
--- NOTE | 2018-07-28 11:19 | Gastroenterology Progress Note ---
Date of Service July 28, 2018 Assessment & Plan (1) Anemia: 87 year old female with extensive comorbidites (CKD, afib on coumadin, COPD on chronic O2, HF) who presents for abnormal outpatient labs w/ hgb 6.7 s/ p RBC x 1 w/ HGB 7 this AM. She has a normocytic anemia, no iron studies completed. She has had dark stools since OP iron was started but denies any melantoic/BRB stools or black/bloody emesis. Evaluation of EGD/Colon was discussed with the pt who elects to defer evaluation - No evidence of acute GI bleed - No role of urgent endoscopic evaluation - Pt wishes to defer endoscopy - Would check iron studies - Perhaps her chronic kidney disease is contributing to her anemia - Continue conservative measures - Trend H&H - Can transfuse HGB < 7 per primary service - Monitor GI output - GI to sign off, no GI contraindication to DC. Thank you for allowing us to participate in the care of this patient. Please call with any acute changes, questions or concerns. Please see addendum below with additional recommendation from my supervising physician. Supervising Physician Co-Signing Physician Notes Attending attestation I have seen, examined this patient, and agree with the findings and above by our mid-level provider HARESH Rahman. -No signs of bleeding, patient does not desire endoscopy -F/u with Hematology -PPI daily -Would consider holding coumadin Subjective Pt was seen and evaluated, chart reviewed. Feeling well. No abd pain. Tolerating PO. No black/bloody stools/emesis. HGB stable. Constitutional: no fever and no chills Respiratory: + dyspnea (chronic); no cough and no chest congestion Gastrointestinal: no abdominal pain, no belching, no hematemesis, no diarrhea/ loose stools, no blood in stools and no melena Physical Exam 2 Vital Signs (Past 24 Hours): Last Vital Signs Temp 36.7 C 07/28/18 07:05 Pulse 70 07/28/18 07:27 Resp 20 07/28/18 07:05 BP 121/64 07/28/18 07:05 Pulse Ox 96 07/28/18 07:05 Constitutional: well developed and well nourished (but chronically ill); no acute distress Respiratory: no respiratory distress and no labored breathing Auscultation : lungs clear to auscultation bilaterally (wearing O2) Cardiovascular: RRR, no murmur, no edema Gastrointestinal (Abdomen): normal bowel sounds, soft, nontender, no hepatosplenomegaly Skin: no rashes, warm and dry Results & Data Laboratory Results 07/28/18 07/28/18 Range/Units 06:09 06:09 Hgb 7.3 L (12.0-16.0) g/dL Hct 26.0 L (37-47) % Sodium 138 (136-145) mmol/L Potassium 4.1 (3.5-5.1) mmol/L Chloride 106 (98-107) mmol/L Carbon Dioxide 26 (21-32) mmol/L Anion Gap 6.0 (3-11) BUN 29 H (7-18) mg/dl Creatinine 1.30 H (0.6-1.2) mg/dl Est Cr Clr Drug Dosing 32.5 ml/min Est GFR ( Amer) 42.1 Est GFR (Non-Af Amer) 36.3 BUN/Creatinine Ratio 22.1 H (10-20) Glucose 86 (70-99) mg/dl Calcium 8.8 (8.5-10.1) mg/dl _ (1) Anemia Anemia type: unspecified type Bone marrow failure anemia type: Chronic kidney disease stage: Folate deficiency anemia type: Hemolytic anemia type: Iron deficiency anemia type: Other causes of anemia: Vitamin B12 deficiency anemia type: Qualified Code(s): D64.9 - Anemia, unspecified
[2018-07-28] MEDS ORDERED: FUROSEMIDE 20 MG in SYRINGE 0 ML IV SCH (14:45)
[2018-07-28] MEDS ORDERED: POLYETHYLENE (MIRALAX) 17 GM PACK PO PRN (15:05)
--- NOTE | 2018-07-28 15:15 | Hospitalist Progress Note ---
Date of Service July 28, 2018 Assessment & Plan (1) Anemia: Hx chronic anemia. Baseline Hgb ~9 Hgb: 7.6 during admission 06/26/18 with iron: 23, ferritin: 24, folate: 21, vitamin B12: 412. Was started on iron supplement daily on 07/08/18 was sent to ER for outpatient lab of Hgb: 6.7 today. Chronic exertional SOB and dizziness, relieved with chronic oxygen 2L NC use. No worsening SOB or dizziness. No syncope, CP. In ER afebrile, P: 81, R: 18, BP: 119/66, 92-97% on 2L O2. WBC: 7.4. H/H: 6.7/ 24.8, MCV: 82, MCH: 22, MCHC: 27, RDW: 60. BUN: 31, Cr: 1.3 Reported heme positive stool, no bright red blood noted. Pt was given protonix bolus and started on drip -s/p transfusion of 1 unit PRBC / H&H been stable post transfusion no evidence of GI Bleed -no episode of melanotic stool -GI consult, appreciate recommendations - advanced diet tolerating well , changed Protonix to pO no plan for EGD -as no evidence of active bleeding recommend to hold for coumadin for another few days Pt's HB stays in low 7 ( 7.3 today ) will transfuse 1 more unit goal Hb > 8 pt is scheduled for follow up with Heme onc on clinic will need out pt lab work : CBC to be checked in clinic (2) Atrial fibrillation: Chronic a-fib on coumadin coumadin on hold for GI bleed /anemia will cont to hold for 3-4 days -continue metoprolol (3) COPD (chronic obstructive pulmonary disease): Oxygen dependent on 2L NC respiratory status at baseline -continue Breo -continue levalbuterol neb prn pt is scheduled for Pulmonology in clinic (4) Diastolic heart failure: Chronic 06/2018: echo: EF: 60-65% -appears euvolemic at this time -hold Lasix for TRISTIN (5) Hypertensive heart disease: -continue metoprolol, statin, imdur -aspirin resumed (6) Hypertension: Stable -continue metoprolol (7) Dyslipidemia: -continue statin (8) Acute renal failure superimposed on stage 3 chronic kidney disease: presented with TRISTIN (acute kidney failure ) possible due to dehydration , . Current creatinine level on admission 1.33 from baseline of 1.00 in February 2018. Present on Admission?: Yes (9) Chronic kidney disease (CKD), stage III (moderate): Cr: 1.3.( presented with TRISTIN -acute kidney injury ) will hold off lasix repeat BMP in AM baseline ~1 -avoid nephrotoxic agents (10) Depression: Hx anxiety, depression. Stable -continue escitalopram DVT Prophylaxis -SCDs PT/OT eval requested appreciate input pt is stable to return back to [place] Personal care will benefit with home PT will update Casemanagement DNR/DNI as per discussion with pt and family DISPOSITION ; plan to discharge next 24-48 hrs if no evidence of GI bleed /H&H remains stable Follows with Dr Toussaint for routine care Plan to return to the [place] tomorrow Daughter will provide transport Spoke with daughter Alanis , will be in hospital around 10 am tomorrow 07/29/18 Subjective did not had any bowel movement today tolerating diet no nausea /vomiting or abdominal pain no complain of dizzy spell or lightheadeness Physical Exam 2 Vital Signs (Past 24 Hours): Last Vital Signs Temp 36.6 C 07/28/18 11:21 Pulse 62 07/28/18 11:21 Resp 18 07/28/18 11:21 BP 114/65 07/28/18 11:21 Pulse Ox 90 07/28/18 11:21 Physical Exam: GENERAL: No sign of distress, HEENT: Sclera nonicteric, pink-purple bilateral equal reactive to light extraocular muscle intact Normal oral mucosa, neck: No JVD, no thyromegaly, trachea midline Lungs: Clear to auscultate, no wheeze or rales Cardiovascular: Regular S1 and S2, no murmur or gallop, no JVD, no lower extremity edema Abdomen: Soft, nontender, bowel sounds active, no hepatosplenomegaly Extremities: No rash or deformity, normal joint, Neuro: No focal neurological deficit, no dysarthria, no facial droop Psych: Alert awake oriented x3: Euthymic Skin: No rash LYMPH NODES: No cervical lymphadenopathy _ (1) Anemia Anemia type: unspecified type Bone marrow failure anemia type: Chronic kidney disease stage: Folate deficiency anemia type: Hemolytic anemia type: Iron deficiency anemia type: Other causes of anemia: Vitamin B12 deficiency anemia type: Qualified Code(s): D64.9 - Anemia, unspecified (2) Atrial fibrillation Atrial fibrillation type: chronic Qualified Code(s): I48.2 - Chronic atrial fibrillation (3) Depression Depression Type: unspecified Qualified Code(s): F32.9 - Major depressive disorder, single episode, unspecified (4) Diastolic heart failure Heart failure chronicity: chronic Qualified Code(s): I50.32 - Chronic diastolic (congestive) heart failure (5) COPD (chronic obstructive pulmonary disease) COPD type: unspecified COPD Qualified Code(s): J44.9 - Chronic obstructive pulmonary disease, unspecified (6) Hypertension Hypertension type: unspecified Qualified Code(s): I10 - Essential (primary) hypertension (7) Hypertensive heart disease Heart failure presence: without heart failure Qualified Code(s): I11.9 - Hypertensive heart disease without heart failure (8) Acute renal failure superimposed on stage 3 chronic kidney disease Acute renal failure type: unspecified Qualified Code(s): N17.9 - Acute kidney failure, unspecified; N18.3 - Chronic kidney disease, stage 3 (moderate)
[2018-07-28] MEDS ORDERED: FUROSEMIDE 20 MG in SYRINGE 0 ML IV ONE (20:00)
[2018-07-28] MEDS: SIMVASTATIN 20 MG TAB PO SCH (20:02)
[2018-07-28] MEDS: CALCIUM 600MG + VIT D 400 IU TAB PO SCH (20:02)
[2018-07-29 07:22] LABS: Hematocrit (blood only) 29.6 % (37-47); Hemoglobin 8.4 g/dL (12.0-16.0)
[2018-07-29 07:32] LABS: INR 1.3 (0.9-1.1); Prothrombin Time 13.2 Seconds (9.0-12.0)
[2018-07-29 07:43] LABS: BUN Creatinine Ratio 21.8 (10-20); Calcium 8.6 mg/dl (8.5-10.1); Creatinine Clr Calc Pharmacy 33.1 ml/min; Est GFR (African American) 43.3; Est GFR (Non-African American) 37.4
[2018-07-29] MEDS: POTASSIUM CHLORIDE 10 MEQ TABCR PO SCH (08:16)
[2018-07-29] MEDS: ESCITALOPRAM OXALATE 10 MG TAB PO SCH (08:16)
[2018-07-29] MEDS: METOPROLOL TARTRATE 50 MG TAB PO SCH (08:17)
[2018-07-29] MEDS: PANTOprazole 40 MG TAB PO SCH (08:17)
[2018-07-29] MEDS: CALCIUM 600MG + VIT D 400 IU TAB PO SCH (08:17)
[2018-07-29] MEDS: ISOSORBIDE MONO EXTENDED REL 30 MG TABCR PO SCH (08:18)
[2018-07-29] MEDS ORDERED: ASPIRIN 81 MG ECTAB PO SCH (09:00)
--- NOTE | 2018-07-29 10:53 | Discharge Summary ---
Date of Service July 29, 2018 Admission HPI Per Admitting Provider Pt is 87 y/o F with PMH a-fib on coumadin, COPD, chronic oxygen dependent at 2L NC, CKD III, chronic diastolic heart failure, HTN, dyslipidemia, chronic anemia , anxiety, depression, chronic LBBB presented to ER for abnormal lab results of Hgb: 6.7 today. Pt reports chronic SOB with exertion and denies any increased symptoms, improves with using her oxygen continuous as directed. Also reports chronic dizziness if not wearing her oxygen or not breathing through her nose when wearing oxygen, denies any worsening. Eating and drinking well. Drinks 2 cups coffee daily, no ETOH. On aspirin and coumadin. Denies NSAID use. Denies abdominal pain, indigestion, or bright red blood per rectum. Pt states has noticed dark black color stools past 2 weeks. Was started on iron supplement 2 weeks ago. Denies fever/chills, diaphoresis, N/V/D/C, PAIZ, syncope, vision changes, neck pain, CP, orthopnea, palpitations, cough, sore throat, choking, otalgia, rhinorrhea, abdominal pain, paresthesias, weakness, extremity weakness, extremity edema, rashes, urinary symptoms. Pt with recent hospital admission 06/26/18-06/27/18 for acute on chronic diastolic HF and acute on chronic hypoxic respiratory failure. During that admission Hgb: 7.6 and iron: 23, ferritin: 24, folate: 21, vitamin B12: 412. Was started on iron supplement daily on 07/08/18 by cardiology. Pt to have appt with hematology - Dr Martinez on 08/02/18 for new pt appt for anemia. Hx colonoscopy 2003: 2 polyps and internal hemorrhoids Principal Diagnosis Anemia, acute renal failure, resolved, CKD stage III Discharge Exam GENERAL: No sign of distress, HEENT: Sclera nonicteric, pink-purple bilateral equal reactive to light extraocular muscle intact Normal oral mucosa, neck: No JVD, no thyromegaly, trachea midline Lungs: Clear to auscultate, no wheeze or rales Cardiovascular: Regular S1 and S2, no murmur or gallop, no JVD, no lower extremity edema Abdomen: Soft, nontender, bowel sounds active, no hepatosplenomegaly Extremities: No rash or deformity, normal joint, Neuro: No focal neurological deficit, no dysarthria, no facial droop Psych: Alert awake oriented x3: Euthymic Skin: No rash LYMPH NODES: No cervical lymphadenopathy Discharge Data Allergies Allergy/AdvReac Type Severity Reaction Status Date / Time propoxyphene Allergy Unknown Unknown Unverified 06/26/18 10:24 tramadol Allergy Unknown DELIRIUM Unverified 06/26/18 10:24 indomethacin AdvReac Unknown GASTRIC Unverified 06/26/18 10:24 UPSET rofecoxib AdvReac Unknown DRY MOUTH Unverified 06/26/18 10:24 Consultations 07/26/18 17:04 ED Decision to Admit Stat 07/26/18 20:25 Consult Case Management - Discharge Planning Routine Consult Gastroenterology Routine Hospital Course (1) Anemia: Hx chronic anemia. Baseline Hgb ~9 Hgb: 7.6 during admission 06/26/18 with iron: 23, ferritin: 24, folate: 21, vitamin B12: 412. Was started on iron supplement daily on 07/08/18 was sent to ER for outpatient lab of Hgb: 6.7 today. Chronic exertional SOB and dizziness, relieved with chronic oxygen 2L NC use. No worsening SOB or dizziness. No syncope, CP. In ER afebrile, P: 81, R: 18, BP: 119/66, 92-97% on 2L O2. WBC: 7.4. H/H: 6.7/ 24.8, MCV: 82, MCH: 22, MCHC: 27, RDW: 60. BUN: 31, Cr: 1.3 Reported heme positive stool, no bright red blood noted. Pt was given protonix bolus and started on drip -s/p transfusion of 1 unit PRBC / H&H been stable post transfusion no evidence of GI Bleed -no episode of melanotic stool -GI consult, appreciate recommendations - advanced diet tolerating well , changed Protonix to pO no plan for EGD -as no evidence of active bleeding recommend to hold for coumadin for another few days Status post total 2 units of PRBC transfusion, hemoglobin improved more than 9 Patient feels less tired, denies of any shortness of breath or dizzy spell Stable to be discharged home pt is scheduled for follow up with Heme onc on clinic Prescription given for lab work : CBC to be checked in clinic (2) Atrial fibrillation: Chronic a-fib on coumadin coumadin was on hold for GI bleed /anemia will cont to hold for 3-4 days Can be resumed on 07/24/2018 -continue metoprolol (3) COPD (chronic obstructive pulmonary disease): Oxygen dependent on 2L NC respiratory status at baseline -continue Breo -continue levalbuterol neb prn pt is scheduled for follow-up appointment pulmonology in clinic (4) Diastolic heart failure: Chronic 06/2018: echo: EF: 60-65% -appears euvolemic at this time Creatinine improved -Lasix resumed (5) Hypertensive heart disease: -continue metoprolol, statin, imdur -aspirin resumed (6) Hypertension: Stable -continue metoprolol (7) Dyslipidemia: -continue statin (8) Acute renal failure superimposed on stage 3 chronic kidney disease: presented with TRISTIN (acute kidney failure ) possible due to dehydration , . Current creatinine level on admission 1.33 from baseline of 1.00 in February 2018. (9) Chronic kidney disease (CKD), stage III (moderate): Cr: 1.3.( presented with TRISTIN -acute kidney injury ) Creatinine improved to approximate baseline, given PRBC transfusion, IV fluids baseline ~1 -avoid nephrotoxic agents (10) Depression: Hx anxiety, depression. Stable -continue escitalopram DVT Prophylaxis -SCDs PT/OT eval requested appreciate input pt is stable to return back to [place] Personal care Referral made for home health home PT DNR/DNI as per discussion with pt and family DISPOSITION ; Stable to be discharged home today Total Time Total Time Spent Total Time Spent (In Minutes): Approximately 40 minutes Total Time Includes: Examination of the Patient, Discharge Planning and Medication Reconciliation Discharge Plan Discharge Items Patient Disposition: Personal Skilled Nursing Reason For Visit: ANEMIA Discharge Diagnosis: ANEMIA /ACUTE RENAL FAILURE -RESOLVED /CKD STAGE 3 Condition: Good Discharge Goals: Decrease discomfort Activity: Resume your previous activity Non-emergency contact: Primary Care Provider Call non-emergency contact if: you have any medication questions Follow-up/Referrals: Chon Kirk [Staff Physician] - 08/03/18 11:05 am Diet: Carb Consistent or DM2 and Heart Healthy Other Ambulatory Orders: Basic Metabolic Panel (Routine) Timeframe: 20180801 Location: Determined by Patient Ordered By: Eveline Prather Complete Blood Count no Diff (Routine) Timeframe: 20180801 Location: Determined by Patient Ordered By: Eveline Isaac Provider Instructions: HOSPITAL FOLLOW UP WITH DR KIRK AT [facility] ON Wednesday08/03/18 @ 11:05 AM LAB WORK : COMPLETE BLOOD COUNT /BASIC METABOLIC PANEL CHECK ON Wednesday08/01/18 START TAKING COUMADIN ON Wednesday08/01/18 CONTINUE TO FOLLOW UP WITH [facility]AGULATION CLINIC FOR PT/INR MONITORING DO NOT TAKE MOTRIN , NAPROXEN , IBUPROPHEN ADVIL ,ALEVE , Prescriptions: New pantoprazole 40 mg Tablet,Delayed Release (Dr/Ec) 40 mg PO BID 30 Days Qty: 60 RF: 0 Continue aspirin 81 mg tablet,delayed release (DR/EC) 81 mg PO UD RF: 0 calcium carbonate 600 mg calcium (1,500 mg) tablet 600 mg PO BID RF: 0 escitalopram oxalate [Lexapro] 10 mg tablet 10 mg PO QAM RF: 0 isosorbide mononitrate 30 mg tablet extended release 24 hr 30 mg PO QAM RF: 0 levalbuterol HCl 0.31 mg/3 mL solution for nebulization 0.31 mg INH Q4H PRN (Reason: shortness of breath or wheezing) RF: 0 metoprolol tartrate 50 mg tablet 50 mg PO BID RF: 0 simvastatin 20 mg tablet 20 mg PO QPM RF: 0 warfarin 2.5 mg tablet 2.5 mg PO 5XD RF: 0 furosemide 20 mg tablet 40 mg PO DAILY RF: 0 fluticasone-vilanterol 200-25 mcg/dose blister with device 1 puff Inhalation QAM RF: 0 polyethylene glycol 3350 [Miralax] 17 gram Powder In Packet 17 g PO DAILY PRN (Reason: Constipation) RF: 0 potassium chloride 10 mEq Tablet Extended Release 10 meq PO DAILY RF: 0 iron,carbonyl-vitamin C [Vitron-C] 65 mg iron- 125 mg Tablet,Delayed Release ( Dr/Ec) 1 tab PO DAILY RF: 0 Stand-Alone Forms: [employer] [facility]/Other Patient Handouts: Anemia Discharge Orders: Discharge Order (Routine); Ordered 07/29/18 Ordered By: Eveline Prather Admission Data Admit Date/Time: 07/26/18 18:13 Attending Provider: Eveline Prather Admit Provider: Jalen Flores Primary Care Provider: Leonardo COOL Providers: Sandrine Whitt ; Jalen Flores ; Avery Spaulding Service: Telemetry Other Interventions: Discharge Summary Assessment (RN) Last Done: 07/29/18 09:46 DC Date/Time DO NOT enter until pt leaves facility: 07/29/18 10:28
== END 2018-07-29 10:28 | disposition home or self-care (01) | DRG 683 ==
LOC: ED 15:33 → 2W 18:13 → SUATTDRO 18:13 → 2W 19:38